=== PATIENT | female | born 1955 | race Caucasian/White ===

== ENCOUNTER 2021-01-16 10:46 | Inpatient (IN) | payer MEDICARE, MEDICAID, SELFPAY ==
[2021-01-16] VITALS (7 sets, daily range): BP systolic 132–173; BP diastolic 44–72; PULSE 70–83; RESP 16–20; TEMP 36.4–36.7; O2SAT 94–100; BMI 50.1
--- NOTE | ~2021-01-16 | XR_ITS ---
EXAMINATION: CHEST 1 VIEW CLINICAL INFORMATION: Hypoglycemia. COMPARISON: April 16, 2020. TECHNIQUE: An AP view of the chest is provided. FINDINGS: The cardiac silhouette is not enlarged. The mediastinal and hilar contours are unremarkable. There are neither pleural effusions nor pneumothoraces. There are no consolidations. The osseous structures are stable. XR/XR chest 1V IMPRESSION: No evidence for acute disease.
--- NOTE | ~2021-01-16 | CT_ITS ---
EXAMINATION: CT ABDOMEN AND PELVIS WITH CONTRAST CLINICAL INFORMATION: Right lower quadrant pain. Vaginal bleeding. COMPARISON: Pelvic ultrasound 11/03/2019, CT abdomen and pelvis with contrast 11/03/2019. TECHNIQUE: Multidetector volumetric images were obtained from the superior aspect of the liver through the pubic symphysis following administration 85 mL of Omnipaque 350 intravenous contrast. Sagittal and coronal reformatted images were obtained on the technologist's workstation. Oral contrast: No This CT examination was performed using dose optimization techniques as appropriate, variously including the following: *Automated exposure control *Adjustment of mA and/or kV according to patient size (this includes techniques or standardized protocols for targeted exams where dose is matched to indication/reason for exam; i.e. extremities or head) *Use of iterative reconstruction technique DLP: 1476 mGy-cm FINDINGS: LUNG BASES: There is subsegmental atelectasis left posterior lateral base. No effusion. LIVER, GALLBLADDER, AND BILIARY TREE: The liver is normal in size and smooth in contour. There is diffuse hepatic steatosis. Current study shows geographic decreased attenuation in segment 2 left lobe 2 x 3 cm not seen with certainty on prior study. There is no peripheral enhancement or contour abnormality to confirm a space-occupying lesion. This could represent focal fatty changes. No intrahepatic biliary ductal dilatation. There are gallbladder folds again seen but no wall thickening or calculi or gallbladder wall thickening. No pericholecystic inflammatory changes. Common duct unremarkable. PANCREAS: Atrophic, otherwise unremarkable. SPLEEN: Unremarkable. ADRENAL GLANDS: Unremarkable. KIDNEYS AND URETERS: Kidneys are normal in size and enhance symmetrically. There is no hydronephrosis, hydroureter, or perinephric stranding. Again, there are likely 2 punctate calculi upper pole right kidney under 3 mm probable punctate bilateral cysts under 5 mm BLADDER: Unremarkable. GASTROINTESTINAL TRACT: The stomach is dilated, both gas and fluid-filled similar to the prior CT 11/03/2019. There is no wall thickening or volvulus demonstrated. The small and large bowel are unremarkable. There are no inflammatory changes in the small or large bowel. The appendix is normal. There are diverticular left colon and sigmoid without diverticulitis. There is no ascites or fluid collection. No pneumatosis or free air. ABDOMINAL WALL: No significant hernia is appreciated. LYMPH NODES: No lymphadenopathy. VASCULAR: Unremarkable. PELVIC VISCERA: The uterus is enlarged measuring 16.8 x 6.6 x 8.2 cm. Prior measurements are 11.1 x 5.2 x 7.1 cm. There is fluid in the endometrial cavity and large amount of fluid distending the vaginal vault, 5.8 cm in diameter, consistent with the history of vaginal bleeding. Prior CT and ultrasound imaging noted abnormally thickened endometrium. The uterine surface is smooth. There is no interval adnexal mass. Stable left ovarian calcifications are seen. No pelvic ascites. OSSEOUS STRUCTURES: No acute bony abnormality. CT/CT abdomen pelvis w con IMPRESSION: 1. Enlarged uterus with thickened endometrium and intracavitary fluid with prominent fluid distention vaginal vault consistent with history bleeding. No adnexal mass or ascites. 2. Chronic gastric dilatation similar to prior CT 2020. Small and large bowel are unremarkable. Normal appendix. 3. Nonspecific geographic low-attenuation lesion left hepatic lobe 3 cm, possibly accentuated fatty changes superimposed on hepatic steatosis. No gallstone or biliary ductal dilatation.
--- NOTE | 2021-01-16 11:04 | ECG_ITS ---
Test Reason : WEAKNESS Blood Pressure : / mmHG Vent. Rate : 076 BPM Atrial Rate : 076 BPM P-R Int : 166 ms QRS Dur : 092 ms QT Int : 404 ms P-R-T Axes : 074 002 059 degrees QTc Int : 454 ms Normal sinus rhythm Nonspecific T wave abnormality Abnormal ECG When compared with ECG of 16-APR-2020 20:13, No significant change was found Referred By: Donita Walton Electronically Signed By:Blanco Diaz
--- NOTE | 2021-01-16 11:55 | ED.FEMALEGU ---
HPI - Female Genitourinary General Chief complaint: Urogenital-Female Stated complaint: VAGINAL BLEEDING X'S 1 WEEK,LOW ABD PAIN PER SNF Time Seen by Provider: 01/16/21 10:51 Source: patient and EMS Mode of arrival: EMS History of Present Illness HPI Narrative: 65-year-old female with a past medical history of anxiety, CAD, COVID-19, depression, diabetes, hyperlipidemia, hypertension, PVD, OA, previous abnormal endometrium vs mass seen on CT 10/2019 BIBA from SNF for worsening acute on chronic vaginal bleeding x today. Per SNF findings from CT in October 2019 were never followed up on. Patient also reports nausea and abdominal pain, and chronic SOB. Denies fever, chills, vomiting, diarrhea, lightheadedness/dizziness, CP. Does not take anticoagulation Patient is poor historian elicited complaint: vaginal bleeding Related Data Allergies Allergy/AdvReac Type Severity Reaction Status Date / Time No Known Allergies Allergy Unverified 06/13/20 16:57 [No Known Allergies*] Review of Systems Review of Systems: Constitutional: No Fever, No Chills Cardiovascular: No Chest Pain, Chronic SOB Respiratory: No Cough, No Dyspnea Gastrointestinal: + Nausea, No Vomiting, No Diarrhea, No Constipation, + Abdominal pain, No Hematochezia, No Melena Genitourinary: + irregular bleeding, No Dysuria, No Hematuria, No Flank Pain Musculoskeletal: No joint pain, No Myalgias, No Joint Swelling Skin: No Skin Lesions, No rash Neuro: No Weakness, No Numbness, No Loss of Consciousness, No Dizziness, No Headache Yes all other systems are reviewed and are negative [facility] Past Medical History Attestation statement: The following information was validated with the patient. Medical History (Updated 01/16/21 @ 17:13 by NATASHA Benson) Anxiety CAD (coronary artery disease) Chronic respiratory disease COVID-19 Depression Diabetes HLD (hyperlipidemia) HTN (hypertension) Low back pain Osteoarthritis Personality disorder Venous (peripheral) insufficiency Social History Social History Alcohol intake: never Smoking Status: Never smoker Use of substances other than those prescribed or required for medical reasons: No Advance Directives: Yes Advance Directives on File: Yes Advance Directives Date on File: 01/16/21 Physical Exam Vital Signs: Vital Signs: Last Vital Signs Temp 97.7 F 01/16/21 16:13 Pulse 73 01/16/21 16:13 Resp 20 01/16/21 16:13 BP 173/44 H 01/16/21 16:13 Pulse Ox 94 01/16/21 16:13 Body Mass Index 50.1 Const: General: cooperative, healthy appearing and no acute distress Nutritional Appearance: obese Orientation/consciousness: patient oriented x3 Limitations: no limitations HENMT: Head: Yes normal to inspection Ears: hearing grossly normal bilaterally General nose exam: Normal external nose present Face and sinus: Yes normal facial exam Eyes: General: appearance normal, both eyes and all related structures EOM: EOMs intact bilaterally Neck: Neck: Yes normal visual inspection Resp: Effort & Inspection: normal respiratory effort Auscultation: clear to auscultation bilaterally, no rales, no rhonchi and no wheezes Cardio: Rate: regular rate Heart sounds: S1 normal heart sound present and S2 normal heart sound present GI: Inspection: Yes normal to inspection Palpation (GI): Soft to palpation, Tenderness to palpation present (GI) in the RLQ and periumbilically, no guarding and not rigid : Other: Copious brown/green malodorous discharge/bleeding noted on pelvic exam with palpable superior mass. No adnexal or CMT tenderness Skin: Rashes: no rashes Wounds: no wounds Neuro: General: patient oriented x3 Extrem: General: Yes edema Course Course Course Narrative: -leukocytosis of 18.5 (WBC chronically elevated), lactic acid 1.1 > low concern for severe sepsis. Infection not suspected at this time -H&H stable -glucose noted to be low at 48 > D50 given. AST/ALT chronically elevated CT abdomen pelvis w con IMPRESSION: 1. Enlarged uterus with thickened endometrium and intracavitary fluid with prominent fluid distention vaginal vault consistent with history bleeding. No adnexal mass or ascites. 2. Chronic gastric dilatation similar to prior CT 2020. Small and large bowel are unremarkable. Normal appendix. 3. Nonspecific geographic low-attenuation lesion left hepatic lobe 3 cm, possibly accentuated fatty changes superimposed on hepatic steatosis. No gallstone or biliary ductal dilatation. >> results discussed with OBGYN doctor Estella, will obtain BV, yeast, CT/NG, and wound culture. She did not recommend antibiotic initiation at this time. Will contact patient for office follow-up for likely endometrial biopsy, and then referral to subspecialists as needed. -[id number]--ED care transferred to NATASHA Cueva pending UA, CXR, repeat point of care, and anticipated DC home to follow-up with OBGYN MDM - Female Genitourinary MDM Narrative Medical decision making narrative: 65-year-old female with a past medical history of anxiety, CAD, COVID-19, depression, diabetes, hyperlipidemia, hypertension, PVD, OA, previous abnormal endometrium vs mass seen on CT 10/2019 BIBA from SNF for worsening acute on chronic vaginal bleeding x today. Patient also reports nausea and abdominal pain, and chronic SOB. On exam VSS, NAD/nontoxic, abdomen soft +RLQ/periumbilical ttp, no rebound or guarding, on pelvic exam copious amounts of malodorous vaginal discharge noted with probable superior mass. Exam not consistent with PID. Concern for uterine or endometrial mass/malignancy vs anemia vs intra-abdominal pathology. Lower concern for infectious etiology. Unlikely ACS Plan: Labs, UA, CT AP, consult [facility], Reassess Medical Records Attestation: I reviewed the patient's medical records. Lab Data Attestation: I reviewed the patient's lab results. Result diagrams: 01/16/21 13:58 01/16/21 13:58 Labs: Lab Results 01/16/21 01/16/21 01/16/21 Range/Units 13:58 13:58 13:58 WBC 18.5 H (4.8-10.8) X10*3/uL RBC 5.58 H (4.20-5.50) X10*6/uL Hgb 16.0 (12.0-16.0) g/dl Hct 48.9 H (37-47) % MCV 87.6 (80-98) fL MCH 28.7 (27.0-33.0) pg MCHC 32.7 (31.0-35.0) g/dl RDW 12.7 (11.0-16.0) % Plt Count 351 (160-400) X10*3/uL MPV 10.0 (9.4-12.3) fL Immature Gran % (Auto) 3.3 H (0.0-0.4) % Neut % (Auto) 61.8 (45-73) % Lymph % (Auto) 23.8 (20-40) % Posey % (Auto) 9.8 (2-11) % Eos % (Auto) 0.5 (0-4) % Baso % (Auto) 0.8 (0-2) % Lymph # (Auto) 4.4 (1.2-4.9) X10*3/uL Posey # (Auto) 1.8 H (0.1-1.2) X10*3/uL Eos # (Auto) 0.1 (0.0-0.4) X10*3/uL Baso # (Auto) 0.2 (0.0-0.2) X10*3/uL Abs Immat Gran (auto) 0.62 H (0.00-0.03) X10*3/uL Absolute Neuts (auto) 11.4 H (2.0-8.3) X10*3/uL Absolute Nucleated RBC 0.000 (0.0-0.012) X10*3/uL Nucleated RBC % (auto) 0.0 (0.0-0.2) /100WBC Smear Tech's Comments VERIFIED PT 13.9 H (10.8-13.0) SEC INR 1.2 H (0.9-1.1) APTT 31.1 (24.1-38.0) SEC Sodium 141 (135-145) mmol/L Potassium 3.9 (3.3-5.1) mmol/L Chloride 96 (96-108) mmol/L Carbon Dioxide 36 H (22-29) mmol/L Anion Gap 13 (12-20) BUN 15 (9-16) mg/dL Creatinine 0.69 (0.5-1.4) mg/dL Estim Creat Clear Calc 124.3 Estimated GFR > 60 POC Glucose (60-115) mg/dL Random Glucose 48 L* (60-115) mg/dL Lactic Acid (0.5-2.0) mmol/L Calcium 10.8 H (8.4-10.2) mg/dL Magnesium 2.4 (1.6-2.6) mg/dL Total Bilirubin 0.7 (0.0-1.0) mg/dL Direct Bilirubin 0.3 (0.0-0.5) mg/dL AST 42 H (5-31) U/L ALT 75 H (0-31) U/L Alkaline Phosphatase 157 H (39-117) U/L Total Protein 6.6 (6.5-8.0) g/dL Albumin 3.4 L (3.5-5.0) g/dL Lipase (8-78) U/L COVID-19 (KJ) (Negative) COVID-19 Clin Com 01/16/21 01/16/21 01/16/21 Range/Units 13:58 13:58 14:58 WBC (4.8-10.8) X10*3/uL RBC (4.20-5.50) X10*6/uL Hgb (12.0-16.0) g/dl Hct (37-47) % MCV (80-98) fL MCH (27.0-33.0) pg MCHC (31.0-35.0) g/dl RDW (11.0-16.0) % Plt Count (160-400) X10*3/uL MPV (9.4-12.3) fL Immature Gran % (Auto) (0.0-0.4) % Neut % (Auto) (45-73) % Lymph % (Auto) (20-40) % Posey % (Auto) (2-11) % Eos % (Auto) (0-4) % Baso % (Auto) (0-2) % Lymph # (Auto) (1.2-4.9) X10*3/uL Posey # (Auto) (0.1-1.2) X10*3/uL Eos # (Auto) (0.0-0.4) X10*3/uL Baso # (Auto) (0.0-0.2) X10*3/uL Abs Immat Gran (auto) (0.00-0.03) X10*3/uL Absolute Neuts (auto) (2.0-8.3) X10*3/uL Absolute Nucleated RBC (0.0-0.012) X10*3/uL Nucleated RBC % (auto) (0.0-0.2) /100WBC Smear Tech's Comments PT (10.8-13.0) SEC INR (0.9-1.1) APTT (24.1-38.0) SEC Sodium (135-145) mmol/L Potassium (3.3-5.1) mmol/L Chloride (96-108) mmol/L Carbon Dioxide (22-29) mmol/L Anion Gap (12-20) BUN (9-16) mg/dL Creatinine (0.5-1.4) mg/dL Estim Creat Clear Calc Estimated GFR POC Glucose (60-115) mg/dL Random Glucose (60-115) mg/dL Lactic Acid 1.1 (0.5-2.0) mmol/L Calcium (8.4-10.2) mg/dL Magnesium (1.6-2.6) mg/dL Total Bilirubin (0.0-1.0) mg/dL Direct Bilirubin (0.0-0.5) mg/dL AST (5-31) U/L ALT (0-31) U/L Alkaline Phosphatase (39-117) U/L Total Protein (6.5-8.0) g/dL Albumin (3.5-5.0) g/dL Lipase 13 (8-78) U/L COVID-19 (KJ) Negative (Negative) COVID-19 Clin Com See Note 01/16/21 01/16/21 Range/Units 15:45 16:33 WBC (4.8-10.8) X10*3/uL RBC (4.20-5.50) X10*6/uL Hgb (12.0-16.0) g/dl Hct (37-47) % MCV (80-98) fL MCH (27.0-33.0) pg MCHC (31.0-35.0) g/dl RDW (11.0-16.0) % Plt Count (160-400) X10*3/uL MPV (9.4-12.3) fL Immature Gran % (Auto) (0.0-0.4) % Neut % (Auto) (45-73) % Lymph % (Auto) (20-40) % Posey % (Auto) (2-11) % Eos % (Auto) (0-4) % Baso % (Auto) (0-2) % Lymph # (Auto) (1.2-4.9) X10*3/uL Posey # (Auto) (0.1-1.2) X10*3/uL Eos # (Auto) (0.0-0.4) X10*3/uL Baso # (Auto) (0.0-0.2) X10*3/uL Abs Immat Gran (auto) (0.00-0.03) X10*3/uL Absolute Neuts (auto) (2.0-8.3) X10*3/uL Absolute Nucleated RBC (0.0-0.012) X10*3/uL Nucleated RBC % (auto) (0.0-0.2) /100WBC Smear Tech's Comments PT (10.8-13.0) SEC INR (0.9-1.1) APTT (24.1-38.0) SEC Sodium (135-145) mmol/L Potassium (3.3-5.1) mmol/L Chloride (96-108) mmol/L Carbon Dioxide (22-29) mmol/L Anion Gap (12-20) BUN (9-16) mg/dL Creatinine (0.5-1.4) mg/dL Estim Creat Clear Calc Estimated GFR POC Glucose 54 L* 108 (60-115) mg/dL Random Glucose (60-115) mg/dL Lactic Acid (0.5-2.0) mmol/L Calcium (8.4-10.2) mg/dL Magnesium (1.6-2.6) mg/dL Total Bilirubin (0.0-1.0) mg/dL Direct Bilirubin (0.0-0.5) mg/dL AST (5-31) U/L ALT (0-31) U/L Alkaline Phosphatase (39-117) U/L Total Protein (6.5-8.0) g/dL Albumin (3.5-5.0) g/dL Lipase (8-78) U/L COVID-19 (KJ) (Negative) COVID-19 Clin Com ECG Data Attestation: I personally reviewed and interpreted this ECG as follows: ECG interpretation date: 01/16/21 ECG interpretation time: 11:46 Interpretation: EKG normal sinus rhythm. Rate of 76. No STEMI/nonischemic. QTC 454 Discharge Plan Discharge Clinical Impression: Foul smelling vaginal discharge, Thickened endometrium, Hypoglycemia Instructions: Endometrial Biopsy (DC), Vaginal Discharge (ED) Additional Instructions: You need to follow-up with OBGYN outpatient, you need a biopsy of her endometrium as her CT scan shows a thickened endometrium with a lot of fluid in her vaginal vault Vaginal cultures were sent, the results should be back in a couple days, you will be contacted with positive results You develop fever, persistent a worsening abdominal pain, nausea/vomiting return to the ED immediately Referrals: Sussy Soria MD [Physician] - 2 days
--- NOTE | 2021-01-16 13:21 | PC.NURSE ---
patient awake/alert, pt transferred over to new bed to perform internal exam with assistance of techs, provider and 4 techs assisted with internal exam/pt tolerated exam with coaching of staff to deep breathe to relax, pt then cleaned up and boosted in bed, vitals remain stable, patient currently sleeping, is being held NPO at this time, will continue to monitor.
--- NOTE | 2021-01-16 14:07 | PC.NURSE ---
patient moved back to regular ed stretcher with assist of 2 techs, vitals stable, patient very diaphoretic- repeat ekg being performed, iv inserted, labs drawn, will continue to monitor.
[2021-01-16 14:12] LABS: Basophils Absolute Auto 0.2 X10*3/uL (0.0-0.2); Basophils Percent Auto 0.8 % (0-2); Eosinophils Absolute Auto 0.1 X10*3/uL (0.0-0.4); Eosinophils Percent Auto 0.5 % (0-4); Hematocrit 48.9 % (37-47); INTERNATIONAL NORM RATIO 1.2 (0.9-1.1); Imm Gran Abs Auto 0.62 X10*3/uL (0.00-0.03); Imm Gran Pct Auto 3.3 % (0.0-0.4); Lymphocytes Absolute Auto 4.4 X10*3/uL (1.2-4.9); Lymphocytes Percent Auto 23.8 % (20-40); MANUAL DIFF FLAG SCAN; Mean Corpuscular HGB Conc 32.7 g/dl (31.0-35.0); Mean Corpuscular Hemoglobin 28.7 pg (27.0-33.0); Mean Corpuscular Volume 87.6 fL (80-98); Monocytes Absolute Auto 1.8 X10*3/uL (0.1-1.2); Monocytes Percent Auto 9.8 % (2-11); Neutrophils Absolute Auto 11.4 X10*3/uL (2.0-8.3); Neutrophils Percent Auto 61.8 % (45-73); Platelet Count 351 X10*3/uL (160-400); Prothrombin Time 13.9 SEC (10.8-13.0); Red Blood Count 5.58 X10*6/uL (4.20-5.50); Red Cell Distribution Width 12.7 % (11.0-16.0); SCAN SMEAR FLAG 1; White Blood Count 18.5 X10*3/uL (4.8-10.8)
[2021-01-16 14:15] LABS: Partial Thromboplastin Time 31.1 SEC (24.1-38.0)
[2021-01-16] MEDS: LORazepam 2 MG/ML VIAL 0.5 MG IVPUSH (14:21)
--- NOTE | 2021-01-16 14:21 | PC.NURSE ---
patient medicated per order, youth nutritional monitor applied nsr 70s
[2021-01-16 14:28] LABS: Lactic Acid 1.1 mmol/L (0.5-2.0)
[2021-01-16 14:33] LABS: Lipase 13 U/L (8-78)
[2021-01-16 14:38] LABS: SLIDE REVIEW VERIFIED
[2021-01-16 14:40] LABS: Alanine Aminotransferase 75 U/L (0-31); Albumin Level 3.4 g/dL (3.5-5.0); Alkaline Phosphatase 157 U/L (39-117); Anion Gap 13 (12-20); Aspartate Amino Transferase 42 U/L (5-31); Bilirubin Direct 0.3 mg/dL (0.0-0.5); Bilirubin Total 0.7 mg/dL (0.0-1.0); Blood Urea Nitrogen 15 mg/dL (9-16); Calcium 10.8 mg/dL (8.4-10.2); Carbon Dioxide 36 mmol/L (22-29); Chloride 96 mmol/L (96-108); Creatinine Clr Calc Pharmacy 124.3; Estimated Glomerular Filt Rate > 60; Glucose Random 48 mg/dL (60-115); Magnesium 2.4 mg/dL (1.6-2.6); Potassium 3.9 mmol/L (3.3-5.1); Sodium 141 mmol/L (135-145); Total Protein 6.6 g/dL (6.5-8.0)
--- NOTE | 2021-01-16 14:49 | ECG_ITS ---
Test Reason : REPEAT Blood Pressure : / mmHG Vent. Rate : 077 BPM Atrial Rate : 077 BPM P-R Int : 168 ms QRS Dur : 098 ms QT Int : 430 ms P-R-T Axes : 070 -16 051 degrees QTc Int : 486 ms Normal sinus rhythm Nonspecific T wave abnormality Prolonged QT Abnormal ECG When compared with ECG of 16-JAN-2021 11:46, No significant change was found Referred By: Donita Walton Electronically Signed By:Blanco Diaz
--- NOTE | 2021-01-16 15:04 | PC.NURSE ---
pt awake to voice, medicated with iv dextrose per order, blood cultures and covid swab obtained, will continue to monitor.
[2021-01-16 15:24] LABS: COVID-19 Test Negative (Negative); IDNOW Serial# 9DD0AD1C
[2021-01-16] MEDS: iohexoL 350 MG/ML 100 ML INFUS..BTL IV (15:48)
[2021-01-16 15:49] LABS: Glucose, Whole Blood 54 mg/dL (60-115)
--- NOTE | 2021-01-16 16:13 | PC.NURSE ---
patient medicated with iv dextrose per order, vss, will continue to monitor.
[2021-01-16] MEDS: Dextrose 5 % and 0.45 % NaCl 1,000 ML 100 ML IVCONT (16:34)
--- NOTE | 2021-01-16 16:35 | PC.NURSE ---
repeat poc performed, ivf started per order, will continue to monitor
[2021-01-16 16:36] LABS: Glucose, Whole Blood 108 mg/dL (60-115)
--- NOTE | 2021-01-16 17:24 | PC.NURSE ---
fluids stopped per provider request, will redo poc at 1830
[2021-01-16 18:31] LABS: Glucose, Whole Blood 80 mg/dL (60-115)
--- NOTE | 2021-01-16 19:39 | PC.NURSE ---
attempting to call [facility] to obtain medications as they were not sent with the patient
--- NOTE | 2021-01-16 19:47 | PC.NURSE ---
patient sleeping, wakes to verbal stimulus, cardiac technician nsr 70s, vss, still attempting to get ahold of shirin- there has been no answer, will continue to monitor.
--- NOTE | 2021-01-16 20:14 | PC.NURSE ---
was able to get ahold of a RN named Stella at [facility], she stated the patient got 5u novolog this morning and also gets 100u of levimer at night, she stated the patients PO intake has greatly decreased. this nurse gave a full report to stella including what happened with the patients blood sugar today and to discuss with her provider to have her insulin adjusted. ED provider was notified of the medications, patient was given food per provider request and will have her blood sugar rechecked so patient can return back to [facility] later this evening. will continue to monitor.
[2021-01-16 20:53] LABS: Glucose, Whole Blood 72 mg/dL (60-115)
[2021-01-16 21:32] LABS: Glucose, Whole Blood 69 mg/dL (60-115)
--- NOTE | 2021-01-16 21:32 | PC.NURSE ---
patient awake/alert, vitals stable, radiation monitor sinus keith 60s, recent repeated poc was 69, provider notified d5 1/2 ns at 100 was restarted per provider request, will continue to monitor.
[2021-01-16] MEDS: Dextrose 10 % 1,000 ML 75 ML IVCONT (22:28)
--- NOTE | 2021-01-16 22:29 | PC.NURSE ---
new ivf hung per order
[2021-01-16 22:50] LABS: Glucose, Whole Blood 85 mg/dL (60-115)
[2021-01-16 23:36] LABS: Glucose, Whole Blood 120 mg/dL (60-115)
[2021-01-17] VITALS (7 sets, daily range): BP systolic 104–151; BP diastolic 49–65; PULSE 77–89; RESP 18–20; TEMP 35.7–36.8; O2SAT 93–99
[2021-01-17 01:46] LABS: Hematocrit 47.8 % (37-47)
[2021-01-17 02:43] LABS: Glucose, Whole Blood 180 mg/dL (60-115)
[2021-01-17] MEDS: Tranexamic Acid 1,000 MG in 0.9 % Sodium Chloride 50 ML 360 MG IV (03:15)
[2021-01-17 04:22] LABS: Glucose, Whole Blood 244 mg/dL (60-115)
[2021-01-17 04:56] LABS: MANUAL DIFF FLAG NO
[2021-01-17 04:58] LABS: Basophils Absolute Auto 0.1 X10*3/uL (0.0-0.2); Basophils Percent Auto 0.6 % (0-2); Eosinophils Absolute Auto 0.1 X10*3/uL (0.0-0.4); Eosinophils Percent Auto 0.4 % (0-4); Hematocrit 43.6 % (37-47); Hemoglobin 13.7 g/dl (12.0-16.0); Imm Gran Abs Auto 0.53 X10*3/uL (0.00-0.03); Imm Gran Pct Auto 3.7 % (0.0-0.4); Lymphocytes Absolute Auto 2.6 X10*3/uL (1.2-4.9); Mean Corpuscular HGB Conc 31.4 g/dl (31.0-35.0); Mean Corpuscular Hemoglobin 28.2 pg (27.0-33.0); Mean Corpuscular Volume 89.9 fL (80-98); Mean Platelet Volume 10.1 fL (9.4-12.3); Monocytes Absolute Auto 1.5 X10*3/uL (0.1-1.2); Monocytes Percent Auto 10.5 % (2-11); Neutrophils Absolute Auto 9.5 X10*3/uL (2.0-8.3); Neutrophils Percent Auto 66.8 % (45-73); Platelet Count 260 X10*3/uL (160-400); Red Blood Count 4.85 X10*6/uL (4.20-5.50); Red Cell Distribution Width 12.6 % (11.0-16.0); White Blood Count 14.2 X10*3/uL (4.8-10.8)
--- NOTE | 2021-01-17 05:06 | P.HPHOSP_ITS ---
History of Present Illness Date of Service: 01/16/21 Chief Complaint: vaginal bleed, hypoglyceimic 66-year-old female with past medical history of CAD, depression, diabetes, HTN, HLD, among others who presents to the hospital from [facility] with complaints of vaginal bleeding. Patient reports that she has had vaginal bleeding for a while now, and had worsened this morning and therefore [facility] sent her to the hospital. She does have an appointment outpatient for evaluation of this vaginal bleeding with an Ob Gyne in the next few days. She also reports poor oral intake for the past 2 days, just feels nauseous and does not have any appetite. She denies any abdominal pain, no chest pain, no shortness of breath, no diarrhea, no constipation, no urinary symptoms and no lower extremity edema. No headache or change in vision. While in the ED workup showed a POC glucose of 54, apparently patient received 100 units of long-acting in a.m. but had no appetite of eating. Patient remained hypoglycemic despite being on D5 as well as receiving 2 rounds of D50. Patient is being admitted for hypoglycemia Stable with no significant abnormal vitals. Blood pressure of 138/49 Labs are significant for see on of 18.5, hemoglobin of 16, hematocrit 40.9, PT of 13.9, INR of 1.2, glucose of 48, AST of 42, ALT of 75, alk-phos of 157, albumin of 3.4, COVID-19 negative, Shows enlarged uterus with thickened endometrium and drip cavity fluid with prominent fluid distension. Vaginal vault consistent with history of bleeding. No adnexal mass or ascites. Chronic gastric dilatation Review of Systems Review of Systems: Yes all other systems are reviewed and are negative [facility] Medical History Anxiety CAD (coronary artery disease) Chronic respiratory disease COVID-19 Depression Diabetes HLD (hyperlipidemia) HTN (hypertension) Low back pain Osteoarthritis Personality disorder Venous (peripheral) insufficiency Social History Housing: Half-Way Do you presently have visiting nurse or other home services: Yes Alcohol intake: never Smoking Status: Never smoker Use of substances other than those prescribed or required for medical reasons: No Have you been hit, kicked, punched, or otherwise hurt by someone within the past year? If so, by whom?: No Do you feel safe in your current relationship?: No Is there a partner from a previous relationship who is making you feel unsafe now?: No Are you made to feel afraid or neglected: No Advance Directives: Yes Advance Directives on File: Yes Advance Directives Date on File: 01/16/21 Do you have thoughts of harming others: None Do you have a plan to hurt others: No Plan Recently lost weight without trying: No Meds Allergies Allergy/AdvReac Type Severity Reaction Status Date / Time No Known Allergies Allergy Unverified 06/13/20 16:57 [No Known Allergies*] Active Medications: Current Medications Generic Name Dose Route Start Last Admin Trade Name Freq PRN Reason Stop Dose Admin Acetaminophen 650 mg 01/17/21 00:55 Acetaminophen 325 Mg Tablet PO Q4H PRN Fever Or Pain Aspirin 81 mg 01/17/21 09:00 Aspirin Enteric Coated 81 Mg Tablet. PO DAILY [facility] Atorvastatin Calcium 20 mg 01/17/21 09:00 Atorvastatin Calcium 20 Mg Tablet PO DAILY [facility] Bisacodyl 10 mg 01/17/21 00:55 Bisacodyl 10 Mg Supp.Rect [place] DAILY PRN Constipation Divalproex Sodium 250 mg 01/17/21 09:00 Divalproex Sodium 250 Mg Tablet. PO BID [facility] Docusate Sodium 100 mg 01/17/21 00:55 Docusate Sodium 100 Mg Capsule PO DAILY PRN Constipation Duloxetine HCl 20 mg 01/17/21 09:00 Duloxetine Hcl 20 Mg Capsule. PO DAILY [facility] Duloxetine HCl 60 mg 01/17/21 09:00 Duloxetine Hcl 60 Mg Capsule. PO DAILY [facility] Furosemide 20 mg 01/17/21 09:00 Furosemide 20 Mg Tablet PO DAILY [facility] Protocol Heparin Sodium (Porcine) 5,000 unit 01/17/21 10:00 Heparin Sodium,Porcine 5,000 Unit/Ml Vial SUBCUT Q12H [facility] Dextrose 1,000 mls @ 75 mls/hr 01/16/21 22:00 01/16/21 22:28 D10 IVCONT 75 mls/hr .[id number] [facility] Administration Insulin Human Lispro 5 unit 01/17/21 07:30 Insulin Lispro 100 Unit/Ml 3 Ml Vial SUBCUT TIDAC [facility] Metoprolol Succinate 50 mg 01/17/21 09:00 Metoprolol Succinate Er 50 Mg Tab.Er.24h PO DAILY [facility] Protocol Ondansetron HCl 4 mg 01/17/21 00:55 Ondansetron Hcl 4 Mg/2 Ml Vial IVPUSH Q8H PRN Nausea and Vomiting Oxycodone HCl 5 mg 01/17/21 00:55 Oxycodone Hcl Immed Release 5 Mg Tablet PO Q4H PRN Pain Oxycodone HCl 10 mg 01/17/21 09:00 Oxycodone Hcl Immed Release 5 Mg Tablet PO BID [facility] Pharmacy Consult 1 each 01/16/21 21:39 Consult Rx Perform Med Rec MISCELLANE ONCE PRN Consult order Polyethylene Glycol 17 gm 01/17/21 09:00 Polyethylene Glycol 3350 17 Gm Powd.Pack PO DAILY [facility] Pregabalin 75 mg 01/17/21 09:00 Pregabalin 75 Mg Capsule PO BID [facility] Sodium Chloride 3 ml 01/17/21 00:55 01/17/21 03:10 0.9 % Sodium Chloride Flush 3 Ml Syringe IVFLUSH Not Given QSHIFT [facility] Trazodone HCl 37.5 mg 01/17/21 21:00 Trazodone Hcl 50 Mg Tablet PO BEDTIME [facility] Home Medications Medication Instructions Recorded Confirmed Last Taken Type acetaminophen 650 mg PO Q4H PRN 01/16/21 01/16/21 Unknown History aspirin 81 mg PO DAILY 01/16/21 01/16/21 Unknown History atorvastatin 1 tab PO DAILY 01/16/21 01/16/21 Unknown History bisacodyl 10 mg [place] DAILY PRN 01/16/21 01/16/21 Unknown History divalproex 1 tab PO BID 01/16/21 01/16/21 Unknown History duloxetine 1 cap PO DAILY 01/16/21 01/16/21 Unknown History duloxetine 1 cap PO DAILY 01/16/21 01/16/21 Unknown History furosemide 20 mg PO DAILY 01/16/21 01/16/21 Unknown History insulin aspart U-100 [Novolog 5 unit SUBCUT TIDAC 01/16/21 01/16/21 Unknown History U-100 Insulin aspart] insulin aspart U-100 [Novolog See Rx Instructions .ROUTE .COMPLEX 01/16/21 01/16/21 Unknown History U-100 Insulin aspart] insulin detemir U-100 [Levemir 100 unit SUBCUT BID 01/16/21 01/16/21 Unknown History U-100 Insulin] magnesium oxide 400 mg PO DAILY 01/16/21 01/16/21 Unknown History metoprolol succinate 1 tab PO DAILY 01/16/21 01/16/21 Unknown History oxycodone 1 tab PO BID 01/16/21 01/16/21 Unknown History oxycodone 5 mg PO Q4H PRN 01/16/21 01/16/21 Unknown History polyethylene glycol 3350 [Miralax] 17 g PO DAILY 01/16/21 01/16/21 Unknown History pregabalin 1 cap PO BID 01/16/21 01/16/21 Unknown History trazodone 37.5 mg PO DAILY 01/16/21 01/16/21 Unknown History Physical Exam Vital Signs and Narrative: Vital Signs: Last Vital Signs Temp 98.2 F 01/17/21 04:00 Pulse 82 01/17/21 04:00 Resp 18 01/17/21 04:00 BP 151/58 H 01/17/21 04:00 Pulse Ox 98 01/17/21 04:00 Body Mass Index 50.1 Const: General: cooperative and no acute distress Orientation/consciousness: patient oriented x3 Eyes: General: appearance normal, both eyes and all related structures Resp: Effort & Inspection: normal respiratory effort and able to speak in complete sentences Cardio: Rate: regular rate Rhythm: regular rhythm GI: Palpation (GI): Soft to palpation Auscultation: normal bowel sounds Skin: General skin exam: no rashes or lesions noted Neuro: General: patient oriented x3 Cognition (Neuro): normal cognition Extrem: General: Yes normal to inspection and Yes no pedal edema Results Labs CBC and Chem 7: 01/17/21 01:32 01/16/21 13:58 Labs: Laboratory Results - last 24 hr 01/16/21 01/16/21 01/16/21 13:58 13:58 13:58 MCV 87.6 MCH 28.7 MCHC 32.7 RDW 12.7 Plt Count 351 MPV 10.0 Immature Gran % (Auto) 3.3 H Neut % (Auto) 61.8 Lymph % (Auto) 23.8 [place] % (Auto) 9.8 Eos % (Auto) 0.5 Baso % (Auto) 0.8 Lymph # (Auto) 4.4 [place] # (Auto) 1.8 H Eos # (Auto) 0.1 Baso # (Auto) 0.2 Abs Immat Gran (auto) 0.62 H Absolute Neuts (auto) 11.4 H Absolute Nucleated RBC 0.000 Nucleated RBC % (auto) 0.0 Smear Tech's Comments VERIFIED PT 13.9 H INR 1.2 H APTT 31.1 Anion Gap 13 Estim Creat Clear Calc 124.3 Estimated GFR > 60 POC Glucose Random Glucose 48 L* Lactic Acid Calcium 10.8 H Magnesium 2.4 Total Bilirubin 0.7 Direct Bilirubin 0.3 AST 42 H ALT 75 H Alkaline Phosphatase 157 H Total Protein 6.6 Albumin 3.4 L Lipase COVID-19 (KJ) COVID-19 [employer] 01/16/21 01/16/21 01/16/21 13:58 13:58 14:58 MCV MCH MCHC RDW Plt Count MPV Immature Gran % (Auto) Neut % (Auto) Lymph % (Auto) [place] % (Auto) Eos % (Auto) Baso % (Auto) Lymph # (Auto) [place] # (Auto) Eos # (Auto) Baso # (Auto) Abs Immat Gran (auto) Absolute Neuts (auto) Absolute Nucleated RBC Nucleated RBC % (auto) Smear Tech's Comments PT INR APTT Anion Gap Estim Creat Clear Calc Estimated GFR POC Glucose Random Glucose Lactic Acid 1.1 Calcium Magnesium Total Bilirubin Direct Bilirubin AST ALT Alkaline Phosphatase Total Protein Albumin Lipase 13 COVID-19 (KJ) Negative COVID-[employer] See Note 01/16/21 01/16/21 01/16/21 15:45 16:33 18:27 MCV MCH MCHC RDW Plt Count MPV Immature Gran % (Auto) Neut % (Auto) Lymph % (Auto) [place] % (Auto) Eos % (Auto) Baso % (Auto) Lymph # (Auto) [place] # (Auto) Eos # (Auto) Baso # (Auto) Abs Immat Gran (auto) Absolute Neuts (auto) Absolute Nucleated RBC Nucleated RBC % (auto) Smear Tech's Comments PT INR APTT Anion Gap Estim Creat Clear Calc Estimated GFR POC Glucose 54 L* 108 80 Random Glucose Lactic Acid Calcium Magnesium Total Bilirubin Direct Bilirubin AST ALT Alkaline Phosphatase Total Protein Albumin Lipase COVID-19 (KJ) COVID-19 [employer] 01/16/21 01/16/21 01/16/21 20:48 21:26 22:46 MCV MCH MCHC RDW Plt Count MPV Immature Gran % (Auto) Neut % (Auto) Lymph % (Auto) [place] % (Auto) Eos % (Auto) Baso % (Auto) Lymph # (Auto) [place] # (Auto) Eos # (Auto) Baso # (Auto) Abs Immat Gran (auto) Absolute Neuts (auto) Absolute Nucleated RBC Nucleated RBC % (auto) Smear Tech's Comments PT INR APTT Anion Gap Estim Creat Clear Calc Estimated GFR POC Glucose 72 69 85 Random Glucose Lactic Acid Calcium Magnesium Total Bilirubin Direct Bilirubin AST ALT Alkaline Phosphatase Total Protein Albumin Lipase COVID-19 (KJ) COVID-19 Clin Com 01/16/21 01/17/21 01/17/21 23:31 02:37 04:14 MCV MCH MCHC RDW Plt Count MPV Immature Gran % (Auto) Neut % (Auto) Lymph % (Auto) [place] % (Auto) Eos % (Auto) Baso % (Auto) Lymph # (Auto) [place] # (Auto) Eos # (Auto) Baso # (Auto) Abs Immat Gran (auto) Absolute Neuts (auto) Absolute Nucleated RBC Nucleated RBC % (auto) Smear Tech's Comments PT INR APTT Anion Gap Estim Creat Clear Calc Estimated GFR POC Glucose 120 H 180 H 244 H Random Glucose Lactic Acid Calcium Magnesium Total Bilirubin Direct Bilirubin AST ALT Alkaline Phosphatase Total Protein Albumin Lipase COVID-19 (KJ) COVID-19 [employer] [facility] Imaging Radiologist's Impressions: Impressions Abdomen/Pelvis CT 01/16/21 11:04 IMPRESSION: 1. Enlarged uterus with thickened endometrium and intracavitary fluid with prominent fluid distention vaginal vault consistent with history bleeding. No adnexal mass or ascites. 2. Chronic gastric dilatation similar to prior CT 2020. Small and large bowel are unremarkable. Normal appendix. 3. Nonspecific geographic low-attenuation lesion left hepatic lobe 3 cm, possibly accentuated fatty changes superimposed on hepatic steatosis. No gallstone or biliary ductal dilatation. Chest X-Ray 01/16/21 17:13 IMPRESSION: No evidence for acute disease. Assessment and Plan (1) Hypoglycemia: Status: Acute (2) Vaginal bleeding: Status: Acute 66-year-old female with past medical history of diabetes who presents to the hospital vaginal bleeding found to be hypoglycemic # hypoglycemia - most likely secondary to significant intake of insulin without eating or drinking appropriately - patient was placed on D10 and admitted to the hospital with improvement of her glucose - will monitor with pock q.i.d. a.c. - diabetic diet - will hold off on her baseline insulin at this time until improvement of her glucose levels - may need insulin adjustment baseline her oral intake # vaginal bleeding - hemoglobin stable - had few more small episodes while in the ED - Received 1 dose of Tranexamic acid - will consult associate programmer analyst - CT abdomen and pelvis showed thickend endometrium # CAD - hold aspirin in the setting of vaginal bleeding - continue statin and metoprolol DVT prophylaxis: Heparin subQ
[2021-01-17 05:07] LABS: Glucose, Whole Blood 273 mg/dL (60-115)
[2021-01-17 05:31] LABS: Anion Gap 12 (12-20); Blood Urea Nitrogen 13 mg/dL (9-16); Calcium 9.7 mg/dL (8.4-10.2); Carbon Dioxide 34 mmol/L (22-29); Chloride 92 mmol/L (96-108); Creatinine Clr Calc Pharmacy 112.8; Estimated Glomerular Filt Rate > 60; Glucose Random 286 mg/dL (60-115); Potassium 4.4 mmol/L (3.3-5.1); Sodium 134 mmol/L (135-145)
[2021-01-17 06:28] LABS: Glucose, Whole Blood 261 mg/dL (60-115)
[2021-01-17 06:32] LABS: CT PCR NOT DETECTED (Not Detect.); NG PCR NOT DETECTED (Not Detect.)
[2021-01-17 07:23] LABS: Glucose, Whole Blood 236 mg/dL (60-115)
[2021-01-17 08:32] LABS: Glucose, Whole Blood 225 mg/dL (60-115)
[2021-01-17 08:51] LABS: BV Int Neg Control Negative (Negative); BV Int Pos Control Positive (Positive)
[2021-01-17] MEDS: 0.9 % Sodium Chloride Flush 3 ML SYRINGE IVFLUSH ×3 (10:15→22:55)
[2021-01-17] MEDS: oxyCODONE HCl Immed Release 5 MG TABLET 10 MG PO ×2 (10:16→21:00)
[2021-01-17] MEDS: polyethylene glycoL 3350 17 GM POWD.PACK PO (10:16)
[2021-01-17] MEDS: Divalproex Sodium 250 MG TABLET.DR PO ×2 (10:16→20:58)
[2021-01-17] MEDS: DULoxetine HCl 20 MG CAPSULE.DR PO (10:17)
[2021-01-17] MEDS: Metoprolol Succinate ER 50 MG TAB.ER.24H PO (10:17)
[2021-01-17] MEDS: Furosemide 20 MG TABLET PO (10:17)
[2021-01-17] MEDS: Pregabalin 75 MG CAPSULE PO ×2 (10:17→20:59)
[2021-01-17] MEDS: DULoxetine HCl 60 MG CAPSULE.DR PO (10:17)
[2021-01-17] MEDS: Atorvastatin Calcium 20 MG TABLET PO (10:17)
[2021-01-17 10:18] LABS: Glucose, Whole Blood 215 mg/dL (60-115)
--- NOTE | 2021-01-17 10:40 | PM.GYNCN ---
CARE TRANSITION MGR - CN: HPI Data of Consult Consult date: 01/17/21 Requesting Physician: Iain Bunch MD Primary Care Provider: Jacquelyn Presley MD Consult Narrative Narrative: I was consulted on Ms. Talya Emanuel who is a 66 year old female regarding postmenopausal bleeding. According the patient the bleeding started 3 days ago no previous history of postmenopausal bleeding. CT scan done in the emergency room from the following: The uterus is enlarged measuring 16.8 x 6.6 x 8.2 cm.Prior measurements are 11.1 x 5.2 x 7.1 cm. There is fluid in the endometrial cavity and large amount of fluid distending the vaginal vault, 5.8 cm in diameter, consistent with the history of vaginal bleeding. Prior CT and ultrasound imaging noted abnormally thickened endometrium. The uterine surface is smooth. There is no interval adnexal mass. Stable left ovarian calcifications are seen. No pelvic ascites. Last Pap smear was unknown. Patient is a poor historian cc:: CC: Iain Bunch MD [employer] DEVELOPER - Review of Systems Review of Systems ROS Unobtainable: All systems reviewed & are unremarkable except as noted in HPI and below Cardiovascular: Denies Palpatations, Loss of consciousness and Chest pain Respiratory: Denies Cough, Wheezing and Shortness of breath Musculoskeletal: Denies Low back pain Gastrointestinal: Denies Heartburn, Constipation, Diarrhea, Nausea and Vomiting Genitourinary: Denies Pain with urination, Burning with urination and Urinary frequency Neurological: Denies Migranes Psychological: Denies Depression OB PMFSH Past Medical History Medical History Anxiety CAD (coronary artery disease) Chronic respiratory disease COVID-19 Depression Diabetes HLD (hyperlipidemia) HTN (hypertension) Low back pain Osteoarthritis Personality disorder Venous (peripheral) insufficiency Social History Social History Housing: [facility] Do you presently have visiting nurse or other home services: Yes Alcohol intake: never Smoking Status: Never smoker Use of substances other than those prescribed or required for medical reasons: No Have you been hit, kicked, punched, or otherwise hurt by someone within the past year? If so, by whom?: No Do you feel safe in your current relationship?: No Is there a partner from a previous relationship who is making you feel unsafe now?: No Are you made to feel afraid or neglected: No Advance Directives: Yes Advance Directives on File: Yes Advance Directives Date on File: 01/16/21 Do you have thoughts of harming others: None Do you have a plan to hurt others: No Plan Recently lost weight without trying: No Meds Allergies Allergy/AdvReac Type Severity Reaction Status Date / Time No Known Allergies Allergy Unverified 06/13/20 16:57 [No Known Allergies*] Active Medications: Current Medications Generic Name Dose Route Start Last Admin Trade Name Freq PRN Reason Stop Dose Admin Acetaminophen 650 mg 01/17/21 00:55 Acetaminophen 325 Mg Tablet PO Q4H PRN Fever Or Pain Atorvastatin Calcium 20 mg 01/17/21 09:00 01/17/21 10:17 Atorvastatin Calcium 20 Mg Tablet PO 20 mg DAILY [facility] Administration Bisacodyl 10 mg 01/17/21 00:55 Bisacodyl 10 Mg Supp.Rect [place] DAILY PRN Constipation Divalproex Sodium 250 mg 01/17/21 09:00 01/17/21 10:16 Divalproex Sodium 250 Mg Tablet. PO 250 mg BID [facility]USAN Administration Docusate Sodium 100 mg 01/17/21 00:55 Docusate Sodium 100 Mg Capsule PO DAILY PRN Constipation Duloxetine HCl 20 mg 01/17/21 09:00 01/17/21 10:17 Duloxetine Hcl 20 Mg Capsule. PO 20 mg DAILY [facility] Administration Duloxetine HCl 60 mg 01/17/21 09:00 01/17/21 10:17 Duloxetine Hcl 60 Mg Capsule. PO 60 mg DAILY [facility] Administration Furosemide 20 mg 01/17/21 09:00 01/17/21 10:17 Furosemide 20 Mg Tablet PO 20 mg DAILY [facility] Administration Protocol Metoprolol Succinate 50 mg 01/17/21 09:00 01/17/21 10:17 Metoprolol Succinate Er 50 Mg Tab.Er.24h PO 50 mg DAILY [facility] Administration Protocol Ondansetron HCl 4 mg 01/17/21 00:55 Ondansetron Hcl 4 Mg/2 Ml Vial IVPUSH Q8H PRN Nausea and Vomiting Oxycodone HCl 5 mg 01/17/21 00:55 Oxycodone Hcl Immed Release 5 Mg Tablet PO Q4H PRN Pain Oxycodone HCl 10 mg 01/17/21 09:00 01/17/21 10:16 Oxycodone Hcl Immed Release 5 Mg Tablet PO 10 mg BID [facility] Administration Pharmacy Consult 1 each 01/16/21 21:39 Consult Rx Perform Med Rec MISCELLANE ONCE PRN Consult order Polyethylene Glycol 17 gm 01/17/21 09:00 01/17/21 10:16 Polyethylene Glycol 3350 17 Gm Powd.Pack PO 17 gm DAILY [facility] Administration Pregabalin 75 mg 01/17/21 09:00 01/17/21 10:17 Pregabalin 75 Mg Capsule PO 75 mg BID [facility] Administration Sodium Chloride 3 ml 01/17/21 00:55 01/17/21 10:15 0.9 % Sodium Chloride Flush 3 Ml Syringe IVFLUSH 3 ml QSHIFT [facility] Administration Trazodone HCl 37.5 mg 01/17/21 21:00 Trazodone Hcl 50 Mg Tablet PO BEDTIME [facility] Home Medications Medication Instructions Recorded Confirmed Last Taken Type acetaminophen 650 mg PO Q4H PRN 01/16/21 01/16/21 Unknown History aspirin 81 mg PO DAILY 01/16/21 01/16/21 Unknown History atorvastatin 1 tab PO DAILY 01/16/21 01/16/21 Unknown History bisacodyl 10 mg [place] DAILY PRN 01/16/21 01/16/21 Unknown History divalproex 1 tab PO BID 01/16/21 01/16/21 Unknown History duloxetine 1 cap PO DAILY 01/16/21 01/16/21 Unknown History duloxetine 1 cap PO DAILY 01/16/21 01/16/21 Unknown History furosemide 20 mg PO DAILY 01/16/21 01/16/21 Unknown History insulin aspart U-100 [Novolog 5 unit SUBCUT TIDAC 01/16/21 01/16/21 Unknown History U-100 Insulin aspart] insulin aspart U-100 [Novolog See Rx Instructions .ROUTE .COMPLEX 01/16/21 01/16/21 Unknown History U-100 Insulin aspart] insulin detemir U-100 [Levemir 100 unit SUBCUT BID 01/16/21 01/16/21 Unknown History U-100 Insulin] magnesium oxide 400 mg PO DAILY 01/16/21 01/16/21 Unknown History metoprolol succinate 1 tab PO DAILY 01/16/21 01/16/21 Unknown History oxycodone 1 tab PO BID 01/16/21 01/16/21 Unknown History oxycodone 5 mg PO Q4H PRN 01/16/21 01/16/21 Unknown History polyethylene glycol 3350 [Miralax] 17 g PO DAILY 01/16/21 01/16/21 Unknown History pregabalin 1 cap PO BID 01/16/21 01/16/21 Unknown History trazodone 37.5 mg PO DAILY 01/16/21 01/16/21 Unknown History CARE TRANSITION [facility] Physical Exam Vitals Vital signs: Temp Pulse Resp BP Pulse Ox 97 F 77 18 145/58 H 97 01/17/21 07:53 01/17/21 07:53 01/17/21 07:53 01/17/21 07:53 01/17/21 07:53 Body Mass Index 50.1 Constitutional General Appearance: Healthy appearing, Well-nourished and Well-developed Psychiatric Mood and Affect: active and alert, normal mood and normal affect Skin Appearance: No rashes and No lesions Lungs Respiratory Effort: No intercostal retractions Auscultation: Clear to auscultation Cardiovascular Auscultation: RRR Abdomen Auscultation/Inspection/Palpation: Normal bowel sounds, Soft, Non-distended and No tenderness Female Genitalia (Pelvic) Bladder/Urethra: Normal meatus Vulva: No lesions Lesion: Erythema Cervix: Lesion (Blood per vagina, 3 cm mass protruding from the cervix possible polyp, myoma or cancer) Adnexa/Parametria: Adnexal Mass: None (Suboptimal exam given to patient body habitus and inability to extend her hips) CARE TRANSITION MGR - Results Labs CBC & Chem 7: 01/17/21 04:26 01/17/21 04:26 Labs: Short CBC 01/16/21 01/17/21 01/17/21 Range/Units 13:58 01:32 04:26 WBC 18.5 H 14.2 H (4.8-10.8) X10*3/uL Hgb 16.0 15.0 13.7 (12.0-16.0) g/dl Hct 48.9 H 47.8 H 43.6 (37-47) % Plt Count 351 260 D (160-400) X10*3/uL BMP 01/16/21 01/17/21 13:58 04:26 Sodium 141 134 L Potassium 3.9 4.4 Chloride 96 92 L Carbon Dioxide 36 H 34 H BUN 15 13 Creatinine 0.69 0.75 Calcium 10.8 H 9.7 D Liver Function 01/16/21 Range/Units 13:58 Total Bilirubin 0.7 (0.0-1.0) mg/dL Direct Bilirubin 0.3 (0.0-0.5) mg/dL AST 42 H (5-31) U/L ALT 75 H (0-31) U/L Alkaline Phosphatase 157 H (39-117) U/L Albumin 3.4 L (3.5-5.0) g/dL Assessment and Plan (1) Cervical lesion: Status: Acute Discussed with the patient the finding on physical exam, a mass protruding from the cervix. Differential diagnosis discussed with the patient included cervical polyp, myoma or cancer. Recommended a biopsy of the mass in addition to endometrial biopsy and treat accordingly. Given the patient medical history , I recommend to transfer to [facility] for a higher level of care. (2) Postmenopausal bleeding: Status: Acute Discussed with the patient the differential diagnosis of postmenopausal bleeding including but not limited to, endometrial polyp, hyperplasia or cancer, in addition to cervical cancer. Given the patient's findings on physical exam and CT scan showing thickened endometrium, I recommend to transfer the patient to a tertiary care center , [facility] for endometrial biopsy and cervical mass biopsy, and manage accordingly. All questions answered the patient verbalized understanding. Discussed with Dr. Bunch the patient findings on physical exam and my recommendation.
[2021-01-17 11:23] LABS: Glucose, Whole Blood 225 mg/dL (60-115)
[2021-01-17 12:54] LABS: Hematocrit 43.6 % (37-47)
--- NOTE | 2021-01-17 13:00 | MHC.CM.PN ---
nurse pet care technician note electronic medical record reviewed along with case discussed with staff nurse and on multiple discil
--- NOTE | 2021-01-17 13:00 | MHC.CM.PN ---
nurse critical care paramedic note electronic medical record reviewed along with case discussed with staff nurse and on multiple disciplianry rounds , per hospitlaist patient is expected to be transferred to [facility], consult was made with the lime plant operator physician cervical lesion,(per documentation with exame he found a mass protruding from the cervix and recomended transfert to [facility]. patient reported she lives at [facility] she reported that the caretakers at the facility help her with her adls and sometimes she is able to sit in the chair or wheelchair , but is mostly in bed . she is aware that she will be transported at some point to [facility] for further treatments and procedures, discharge plan anticipate transfer today or tomorrow to [facility] medicare imm explained to patient and ledft at her bedside acute transfer community outreach advocate to set up action bls patient will require oxygen hcp and molst on file Assessment and Plan (1) Cervical lesion: Status: Acute Discussed with the patient the finding on physical exam, a mass protruding from the cervix. Differential diagnosis discussed with the patient included cervical polyp, myoma or cancer. Recommended a biopsy of the mass in addition to endometrial biopsy and treat accordingly. Given the patient medical history , I recommend to transfer to patient [facility] for a higher level of care. (2) Postmenopausal bleeding: Status: Acute Discussed with the patient the differential diagnosis of postmenopausal bleeding including but not limited to, endometrial polyp, hyperplasia or cancer, in addition to cervical cancer. Given the patient's findings on physical exam and CT scan showing thickened endometrium, I recommend to transfer the patient to a tertiary care center , [facility] for endometrial biopsy and cervical mass biopsy, and manage accordingly. All questions answered the patient verbalized understanding. Discussed with Dr. Bunch the patient findings on physical exam and my recommendation.
--- NOTE | 2021-01-17 13:19 | P.PNIM_ITS ---
Subjective Subjective Date of Service: 01/17/21 Interval History: seen and examined this AM reports feeling tired but otherwise okay ROS General - no fevers or chills Cardiovascular - no chest pain Respiratory - no shortness of breath or cough Abdominal- no abdominal pain, nausea, vomiting, diarrhea - vaginal bleeding Physical Exam Vital Signs: Vital Signs: Last Vital Signs Temp 97 F 01/17/21 11:30 Pulse 79 01/17/21 11:30 Resp 18 01/17/21 11:30 BP 104/49 L 01/17/21 11:30 Pulse Ox 99 01/17/21 11:30 Body Mass Index 50.1 Const: Other: General - no acute distress, appears comfortable Cardiovascular - regular rate and rhythm, S1-S2 Lungs - normal respiratory effort, clear to auscultation bilaterally, no wheezing Abdomen - soft, nontender, no rebound or guarding Extremities - no edema bilaterally Neuro - awake and alert, no focal deficits Objective Data Current Medications Generic Name Dose Route Start Last Admin Trade Name Freq PRN Reason Stop Dose Admin Acetaminophen 650 mg 01/17/21 00:55 Acetaminophen 325 Mg Tablet PO Q4H PRN Fever Or Pain Atorvastatin Calcium 20 mg 01/17/21 09:00 01/17/21 10:17 Atorvastatin Calcium 20 Mg Tablet PO 20 mg DAILY SUSAN Administration Bisacodyl 10 mg 01/17/21 00:55 Bisacodyl 10 Mg Supp.Rect MA DAILY PRN Constipation Divalproex Sodium 250 mg 01/17/21 09:00 01/17/21 10:16 Divalproex Sodium 250 Mg Tablet. PO 250 mg BID SUSAN Administration Docusate Sodium 100 mg 01/17/21 00:55 Docusate Sodium 100 Mg Capsule PO DAILY PRN Constipation Duloxetine HCl 20 mg 01/17/21 09:00 01/17/21 10:17 Duloxetine Hcl 20 Mg Capsule. PO 20 mg DAILY SUSAN Administration Duloxetine HCl 60 mg 01/17/21 09:00 01/17/21 10:17 Duloxetine Hcl 60 Mg Capsule. PO 60 mg DAILY SUSAN Administration Furosemide 20 mg 01/17/21 09:00 01/17/21 10:17 Furosemide 20 Mg Tablet PO 20 mg DAILY SUSAN Administration Protocol Metoprolol Succinate 50 mg 01/17/21 09:00 01/17/21 10:17 Metoprolol Succinate Er 50 Mg Tab.Er.24h PO 50 mg DAILY SUSAN Administration Protocol Ondansetron HCl 4 mg 01/17/21 00:55 Ondansetron Hcl 4 Mg/2 Ml Vial IVPUSH Q8H PRN Nausea and Vomiting Oxycodone HCl 5 mg 01/17/21 00:55 Oxycodone Hcl Immed Release 5 Mg Tablet PO Q4H PRN Pain Oxycodone HCl 10 mg 01/17/21 09:00 01/17/21 10:16 Oxycodone Hcl Immed Release 5 Mg Tablet PO 10 mg BID SUSAN Administration Pharmacy Consult 1 each 01/16/21 21:39 Consult Rx Perform Med Rec MISCELLANE ONCE PRN Consult order Polyethylene Glycol 17 gm 01/17/21 09:00 01/17/21 10:16 Polyethylene Glycol 3350 17 Gm Powd.Pack PO 17 gm DAILY SUSAN Administration Pregabalin 75 mg 01/17/21 09:00 01/17/21 10:17 Pregabalin 75 Mg Capsule PO 75 mg BID SUSAN Administration Sodium Chloride 3 ml 01/17/21 00:55 01/17/21 10:15 0.9 % Sodium Chloride Flush 3 Ml Syringe IVFLUSH 3 ml QSHIFT SUSAN Administration Trazodone HCl 37.5 mg 01/17/21 21:00 Trazodone Hcl 50 Mg Tablet PO BEDTIME [facility] Labs CBC & Chem 7: 01/17/21 12:37 01/17/21 04:26 Microbiology Microbiology Results: Microbiology 01/16/21 14:58 Blood - Venous Blood Culture - Preliminary 01/16/21 17:07 Vaginal Gram Stain - Final 01/16/21 17:07 Vaginal Routine Culture - Preliminary Culture in progress. 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 d/w Dr. Vega @ [facility] WO[employer] HAT SANDING MACHINE OPERATOR. Full details given including labs + imaging studies. At this time, she does not feel the patient needs inpatient to inpatient transfer. If her h/h drops then we could call her back. In the mean time -- she has been given a f/u at the [facility] on January 22 @ 840AM. repeat h/h this afternoon is stable # CAD - hold aspirin in the setting of vaginal bleeding - continue statin and metoprolol #GPB bacteremia 1/2 bottles suspect contaminant (no foci of infection at this time), pt remains afebrile. Will give vancomycin if she spikes a temp f/u final C&S dispo: if h/h stable and no futher hypoglycemia -- will d/c back to SNF likely tomorrow.
--- NOTE | 2021-01-17 13:45 | MHC.CM.PN ---
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 discharge plan return back to [facility] facility at [facility] where she rsides , updated the facillity and reported that she will be discharged tomorrow informed patient of this also transportation action bls with oxygen medicare imm 01/17/21
--- NOTE | 2021-01-17 15:33 | MHC.CLN ---
RE: CONSULT PT WITH POOR PO INTAKE LIBRARY CONSULTANT FROM SNF [facility] 91KG CMW, 2100KCALS, 91G PROTEIN DIET RX: 1800DM-PT WOULD BENEFIT FROM 2000DM DIET BASED ON ESTIMATED NUTRITION NEEDS RECOMMEND CHECKING A1C LEVEL WILL CHANGE DIET TO 2000DM -DIET WILL PROMOTE SLOW WT LOSS FOLLOWING
[2021-01-17 16:39] LABS: Glucose, Whole Blood 268 mg/dL (60-115)
[2021-01-17 20:29] LABS: Glucose, Whole Blood 261 mg/dL (60-115)
[2021-01-17] MEDS: traZODone HCL 50 MG TABLET 37.5 MG PO (20:59)
[2021-01-18 04:00] VITALS: BP 130/60; PULSE 98; RESP 18; TEMP 36.5; O2SAT 97
[2021-01-18 06:56] LABS: Hematocrit 39.6 % (37-47); Hemoglobin 12.6 g/dl (12.0-16.0); Mean Corpuscular HGB Conc 31.8 g/dl (31.0-35.0); Mean Corpuscular Hemoglobin 28.1 pg (27.0-33.0); Mean Corpuscular Volume 88.4 fL (80-98); Mean Platelet Volume 10.1 fL (9.4-12.3); Platelet Count 276 X10*3/uL (160-400); Red Blood Count 4.48 X10*6/uL (4.20-5.50); Red Cell Distribution Width 12.6 % (11.0-16.0); White Blood Count 17.3 X10*3/uL (4.8-10.8)
[2021-01-18 07:09] VITALS: BP 125/48; PULSE 98; RESP 17; TEMP 36.3; O2SAT 94
[2021-01-18 07:54] LABS: Glucose, Whole Blood 315 mg/dL (60-115)
[2021-01-18] MEDS: DULoxetine HCl 20 MG CAPSULE.DR PO (09:12)
[2021-01-18] MEDS: Pregabalin 75 MG CAPSULE PO (09:12)
[2021-01-18] MEDS: Divalproex Sodium 250 MG TABLET.DR PO (09:12)
[2021-01-18] MEDS: oxyCODONE HCl Immed Release 5 MG TABLET 10 MG PO (09:12)
[2021-01-18] MEDS: DULoxetine HCl 60 MG CAPSULE.DR PO (09:12)
[2021-01-18] MEDS: Atorvastatin Calcium 20 MG TABLET PO (09:13)
[2021-01-18] MEDS: Metoprolol Succinate ER 50 MG TAB.ER.24H PO (09:13)
[2021-01-18] MEDS: 0.9 % Sodium Chloride Flush 3 ML SYRINGE IVFLUSH (09:13)
[2021-01-18] MEDS: Furosemide 20 MG TABLET PO (09:13)
[2021-01-18] MEDS: Insulin Lispro 100 UNIT/ML 3 ML VIAL SUBCUT (09:14)
--- NOTE | 2021-01-18 09:17 | P.DS_ITS ---
DS: Providers Provider Date of Service: 01/18/21 Date of admission: 01/16/21 23:16 Primary care physician: Jacquelyn Presley MD Consults: 01/17/21 01:09 Consult to Obstetrics / Gynecology Routine Consulting Provider: Jalen Lemus Reason for consultation: vaginal bleed Has provider been notified: No DS: Diagnosis Discharge Diagnosis (1) Hypoglycemia: Status: Acute (2) Vaginal bleeding: Status: Acute DS: Medications Discharge Medications Home Medications: Home Medications Medication Instructions Recorded Confirmed acetaminophen 650 mg PO Q4H PRN 01/16/21 01/16/21 aspirin 81 mg PO DAILY 01/16/21 01/16/21 atorvastatin 1 tab PO DAILY 01/16/21 01/16/21 bisacodyl 10 mg [place] DAILY PRN 01/16/21 01/16/21 divalproex 1 tab PO BID 01/16/21 01/16/21 duloxetine 1 cap PO DAILY 01/16/21 01/16/21 duloxetine 1 cap PO DAILY 01/16/21 01/16/21 furosemide 20 mg PO DAILY 01/16/21 01/16/21 insulin aspart U-100 [Novolog 5 unit SUBCUT TIDAC 01/16/21 01/16/21 U-100 Insulin aspart] insulin aspart U-100 [Novolog See Rx Instructions .ROUTE .COMPLEX 01/16/21 01/16/21 U-100 Insulin aspart] insulin detemir U-100 [Levemir 100 unit SUBCUT BID 01/16/21 01/16/21 U-100 Insulin] magnesium oxide 400 mg PO DAILY 01/16/21 01/16/21 metoprolol succinate 1 tab PO DAILY 01/16/21 01/16/21 oxycodone 1 tab PO BID 01/16/21 01/16/21 oxycodone 5 mg PO Q4H PRN 01/16/21 01/16/21 polyethylene glycol 3350 [Miralax] 17 g PO DAILY 01/16/21 01/16/21 pregabalin 1 cap PO BID 01/16/21 01/16/21 trazodone 37.5 mg PO DAILY 01/16/21 01/16/21 DS: Summary Hospital Course Hospital Course: HPI from 01/17 66-year-old female with past medical history of CAD, depression, diabetes, HTN, HLD, among others who presents to the hospital from senior care with complaints of vaginal bleeding. Patient reports that she has had vaginal bleeding for a while now, and had worsened this morning and therefore senior care sent her to the hospital. She does have an appointment outpatient for evaluation of this vaginal bleeding with an Ob Gyne in the next few days. She also reports poor oral intake for the past 2 days, just feels nauseous and does not have any appetite. She denies any abdominal pain, no chest pain, no shortness of breath, no diarrhea, no constipation, no urinary symptoms and no lower extremity edema. No headache or change in vision. While in the ED workup showed a POC glucose of 54, apparently patient received 100 units of long-acting in a.m. but had no appetite of eating. Patient remained hypoglycemic despite being on D5 as well as receiving 2 rounds of D50. Patient is being admitted for hypoglycemia Hospital course: In regards to her hypoglycemia : Patient hypoglycemia improved on D10, D10 was discontinued and patient was eating and drinking well. Patient became hypoglycemic and she was placed on sliding scale insulin. Her baseline Levemir was decreased from 100 units b.i.d. to 25 b.i.d. given her significant hypoglycemia and need for D10, and multiple doses of D50. Patient will need to follow-up with primary care for evaluation of her insulin requirement. Continue the 5 units of lispro 5 t.i.d. In regards to the vaginal bleeding: Patient was evaluated by Ob Gyne.A 3 cm cervical polyp. OB Gyne a recommended patient transfer to tertiary care center. Case was discussed with Dr. Vega @ [facility] GROUTER HELPER. Full details given including labs + imaging studies. At this time, she does not feel the patient needs inpatient to inpatient transfer. If her h/h drops then we could call her back. In the mean time -- she has been given a f/u at the [facility] on January 22 @ 840AM.Hemoglobin has remained stable. If she has severe bleeding we recommend patient be transferred to tertiary care. Aspirin was held due to the vaginal bleed, can be resumed once pt bleeding has resolved and managed. GBS bacteremia most likely contaminant, cultures were repeated and negative to date with no evidence of infection, afebrile Time Spent with Patient Time attestation: Total time spent providing and/or coordinating discharge services: Discharge coordination time: Greater than 30 minutes Physical Exam Vital Signs: Vital Signs: Last Vital Signs Temp 97.3 F 01/18/21 07:09 Pulse 98 01/18/21 07:09 Resp 17 01/18/21 07:09 BP 125/48 L 01/18/21 07:09 Pulse Ox 94 01/18/21 07:09 Oxygen Flow Rate 2 01/16/21 10:57 Body Mass Index 50.1 Const: General: cooperative and no acute distress Orientation/consciousness: patient oriented x3 Eyes: General: appearance normal, both eyes and all related structures Resp: Effort & Inspection: normal respiratory effort and able to speak in complete sentences Cardio: Rate: regular rate Rhythm: regular rhythm GI: Palpation (GI): Soft to palpation Auscultation: normal bowel sounds Skin: General skin exam: no rashes or lesions noted Neuro: General: patient oriented x3 Cognition (Neuro): normal cognition Extrem: General: Yes normal to inspection and Yes no pedal edema DS: Data Data Completed and Pending Labs on day of discharge: Laboratory Results - last 24 hr 01/17/21 01/17/21 01/17/21 10:13 11:12 12:37 WBC RBC Hgb 14.0 Hct 43.6 MCV MCH MCHC RDW Plt Count MPV Absolute Nucleated RBC Nucleated RBC % (auto) POC Glucose 215 H 225 H 01/17/21 01/17/21 01/18/21 16:19 20:23 05:58 WBC 17.3 H RBC 4.48 Hgb 12.6 Hct 39.6 MCV 88.4 MCH 28.1 MCHC 31.8 RDW 12.6 Plt Count 276 MPV 10.1 Absolute Nucleated RBC 0.000 Nucleated RBC % (auto) 0.0 POC Glucose 268 H 261 H 01/18/21 07:10 WBC RBC Hgb Hct MCV MCH MCHC RDW Plt Count MPV Absolute Nucleated RBC Nucleated RBC % (auto) POC Glucose 315 H Preliminary micro results at discharge 01/16/21 17:07 Routine Culture - Preliminary Vaginal Culture in progress. 01/16/21 14:58 Blood Culture - Preliminary Blood - Venous No growth after 24 hours. Discharge Plan Discharge Patient Disposition: [facility] Discharge Diagnosis: Vaginal bleed 2/2 cervical lesion Referrals: [facility] [Other] - 1 Day (return back to detention facility [facility] transportation action bls with oxygen) [facility] [Other] - 1 Week Jacquelyn Presley MD [Primary Care Provider] - 1 Week Sussy Soria MD [Physician] - 2 days Discharge Medications: Continued acetaminophen 325 mg Tablet 650 mg PO Q4H PRN (Reason: Fever Or Pain) RF: 0 atorvastatin 20 mg tablet 1 tab PO DAILY RF: 0 divalproex 250 mg tablet,delayed release (DR/EC) 1 tab PO BID RF: 0 trazodone 50 mg Tablet 37.5 mg PO DAILY RF: 0 metoprolol succinate 50 mg tablet extended release 24 hr 1 tab PO DAILY RF: 0 bisacodyl 10 mg Suppository 10 mg [place] DAILY PRN (Reason: Constipation) RF: 0 furosemide 20 mg Tablet 20 mg PO DAILY RF: 0 polyethylene glycol 3350 [Miralax] 17 gram/dose Powder 17 g PO DAILY RF: 0 oxycodone 5 mg tablet 5 mg PO Q4H PRN (Reason: Pain) RF: 0 duloxetine 20 mg capsule,delayed release(DR/EC) 1 cap PO DAILY RF: 0 duloxetine 60 mg capsule,delayed release(DR/EC) 1 cap PO DAILY RF: 0 pregabalin 75 mg capsule 1 cap PO BID RF: 0 oxycodone 10 mg tablet 1 tab PO BID RF: 0 magnesium oxide 400 mg magnesium Tablet 400 mg PO DAILY RF: 0 insulin aspart U-100 [Novolog U-100 Insulin aspart] 100 unit/mL solution See Rx Instructions .ROUTE .COMPLEX RF: 0 insulin aspart U-100 [Novolog U-100 Insulin aspart] 100 unit/mL solution 5 unit subcut TIDAC RF: 0 Changed Levemir U-100 Insulin 100 unit/mL solution 25 unit subcut BID Qty: 0 RF: 0 Discontinued aspirin 81 mg Tablet,Delayed Release (Dr/Ec) 81 mg PO DAILY RF: 0 Discharge Orders: Discharge Order (Routine); Ordered 01/18/21 Ordered By: Cole Sheppard Activity on Discharge: As tolerated Stand Alone Forms: Patient Portal Discharge page Activity Restrictions/Additional Instructions: You need to follow-up with OBGYN outpatient, you need a biopsy of her endometrium as her CT scan shows a thickened endometrium with a lot of fluid in her vaginal vault Vaginal cultures were sent, the results should be back in a couple days, you will be contacted with positive results You develop fever, persistent a worsening abdominal pain, nausea/vomiting return to the ED immediately Care Plan Goals: Read below Health Concerns: Read below Plan of Treatment: Patient was admitted to the hospital for hypoglycemia as well as vaginal bleed. Patient hypoglycemia most likely secondary to significant Levemir dose as well as low oral intake. Your Levemir has been decreased to 25 units b.i.d.. Insuli n has to be adjusted based on hemoglobin A1c at senior care. Vaginal bleed secondary to cervical polyp that needs follow-up. You have an appointment with [facility] on January 22 at 8:40 a.m. Assessment: Reduced Levemir to 25 units BID given hypoglycemia follow up with primary regarding insulin dosing In regards to vaginal bleeding have an appointment with the [facility] on January 22- please do not miss If continues to have signicant vaginal bleed, return to ED Patient Instructions: Endometrial Biopsy (DC), Vaginal Discharge (ED)
--- NOTE | 2021-01-18 09:22 | MHC.CM.PN ---
PT DISCHARGING TODAY, PT [facility] RETURN TO [facility] 11[facility] W/ [facility] FOR TRANSPORT. PT HAS FOLLOW-[facility] APPT AT [facility]NER ON 01/22/21 AT 8:40AM
== END 2021-01-18 11:25 | disposition skilled nursing facility (03) | DRG 639 ==
LOC: HO.ED 22:02 → HO.S3 23:58
PROVIDERS: Family Medicine; Obstetrics & Gynecology; Physician Assistant; Admitting Provider Internal Medicine; Emergency Provider Emergency Medicine; PCP Internal Medicine; Visit Provider Internal Medicine
DX: E11.649 Type 2 diabetes mellitus with hypoglycemia without coma (principal); N84.1 Polyp of cervix uteri; E78.5 Hyperlipidemia, unspecified; I10 Essential (primary) hypertension; N95.0 Postmenopausal bleeding; I25.10 Atherosclerotic heart disease of native coronary artery without angina pectoris; F32.9 Major depressive disorder, single episode, unspecified; F41.9 Anxiety disorder, unspecified; Z20.822 Contact with and (suspected) exposure to COVID-19; Z79.4 Long term (current) use of insulin; Z79.891 Long term (current) use of opiate analgesic; Z79.899 Other long term (current) drug therapy
CPT/HCPCS: 36415; 71045; 74177; 80048; 80076; 82947; 83605; 83690; 83735; 85014; 85018; 85025; 85027; 85610; 85730; 87040; 87071; 87147; 87205; 87480; 87491; 87510; 87591; 87635; 87660; 93005; 96374; 96375; 99285; J2060; Q9967

== ENCOUNTER 2021-02-03 11:06 | Outpatient (REF) | payer MEDICARE, SELFPAY | END 2021-02-03 11:07 | disposition home or self-care (01) | LOC: HO.LAB 11:06 | PROVIDERS: PCP Internal Medicine; Visit Provider Obstetrics & Gynecology | DX: N95.0 Postmenopausal bleeding (principal) | CPT/HCPCS: 58100; 88305; 99202 ==

== ENCOUNTER → 2021-02-11 13:06 | Outpatient (BNVA) | payer MEDICARE, SELFPAY | PROVIDERS: Visit Provider Obstetrics & Gynecology | DX: N95.0 Postmenopausal bleeding (principal) | CPT/HCPCS: Q3014 ==

== ENCOUNTER → 2021-02-25 11:59 | Outpatient (BNVA) | payer MEDICARE, SELFPAY | PROVIDERS: Visit Provider Obstetrics & Gynecology | CPT/HCPCS: Q3014 ==

== ENCOUNTER 2021-03-13 12:44 | Day surgery (SDC) | payer MEDICARE, SELFPAY ==
[2021-03-10 08:42] VITALS: BMI 48.4
--- NOTE | 2021-03-10 10:21 | P.CONAN_ITS ---
Documented by User: Sarah Craig 03/10/21 10:24 HPI - Anesthesia Eval Consult details Narrative: 66yo F for D&C Hysteroscopy PMFSH Active Problems Active Problems: All Active Problems (Updated 03/07/21 @ 14:49 by Joyce Romeo) Vaginal bleeding (Acute) Cervical lesion (Acute) Postmenopausal bleeding (Acute) Past Medical History Medical History Anxiety CAD (coronary artery disease) Chronic respiratory disease COVID-19 COVID-19 vaccine administered Depression Diabetes Foul smelling vaginal discharge HLD (hyperlipidemia) HTN (hypertension) Low back pain Osteoarthritis Personality disorder Thickened endometrium Venous (peripheral) insufficiency Surgical History Surgical History Hx of heart artery stent Social History Social History Housing: Intermediate Are you a primary campground caretaker to a significant other at home: No Do you presently have visiting nurse or other home services: Yes (resides at [facility]) Alcohol intake: never Patient Tobacco Use Status: Tobacco use Unknown Are you DNR?: No Advance Directives: Yes Advance Directives Information Provided: Yes Advance Directives on File: Yes Advance Directives Date on File: 01/16/21 service: No Current occupational status: disabled Meds Allergies Allergy/AdvReac Type Severity Reaction Status Date / Time No Known Allergies Allergy Verified 02/25/21 11:59 [No Known Allergies*] Home Medications Medication Instructions Recorded Confirmed Last Taken Type acetaminophen 650 mg PO Q4H PRN 01/16/21 03/10/21 Unknown History atorvastatin 1 tab PO DAILY 01/16/21 03/10/21 Unknown History bisacodyl 10 mg [place] DAILY PRN 01/16/21 03/10/21 Unknown History divalproex 1 tab PO BID 01/16/21 03/10/21 Unknown History duloxetine 1 cap PO QAM 01/16/21 03/10/21 Unknown History duloxetine 1 cap PO QAM 01/16/21 03/10/21 Unknown History furosemide 20 mg PO DAILY 01/16/21 03/10/21 Unknown History insulin aspart U-100 [Novolog 5 unit SUBCUT TIDAC 01/16/21 03/10/21 Unknown History U-100 Insulin aspart] insulin aspart U-100 [Novolog See Rx Instructions .ROUTE .COMPLEX 01/16/21 03/10/21 Unknown History U-100 Insulin aspart] magnesium oxide 400 mg PO DAILY 01/16/21 03/10/21 Unknown History metoprolol succinate 1 tab PO DAILY 01/16/21 03/10/21 Unknown History oxycodone 1 tab PO BID 01/16/21 03/10/21 Unknown History oxycodone 5 mg PO Q4H PRN 01/16/21 03/10/21 Unknown History polyethylene glycol 3350 [Miralax] 17 g PO DAILY 01/16/21 03/10/21 Unknown History pregabalin 1 cap PO BID 01/16/21 03/10/21 Unknown History trazodone 37.5 mg PO DAILY 01/16/21 03/10/21 Unknown History Levemir U-100 Insulin 65 unit SUBCUT BID 03/10/21 03/10/21 Unknown History lorazepam 0.5 mg PO BEDTIME 03/10/21 03/10/21 Unknown History lorazepam [Ativan] 0.5 mg PO TID PRN 03/10/21 03/10/21 Unknown History ondansetron HCl [Zofran] 4 mg PO Q6H PRN 03/10/21 03/10/21 Unknown History Exam Exam Date and Time: March 10, 2021 1021 Height,Weight and Vital Signs: Height 5 ft 9 in Weight 148.778 kg Pertinent Lab Results Pertinent Lab Results: Laboratory Tests 01/17/21 01/18/21 04:26 05:58 WBC 17.3 H Hgb 12.6 Hct 39.6 Plt Count 276 Sodium 134 L Potassium 4.4 Chloride 92 L Carbon Dioxide 34 H BUN 13 Creatinine 0.75 Narrative Narrative: EKG 12/2020 Vent. Rate : 076 BPM Atrial Rate : 076 BPM P-R Int : 166 ms QRS Dur : 092 ms QT Int : 404 ms P-R-T Axes : 074 002 059 degrees QTc Int : 454 ms Normal sinus rhythm Nonspecific T wave abnormality Abnormal ECG When compared with ECG of 16-APR-2020 20:13, No significant change was found Assessment and Plan Assessment Anesthesia Assessment: Chart Reviewed Documented by User: Nicolas Quiñonez MD 03/13/21 13:34 PMFSH Past Medical History Medical History Anxiety CAD (coronary artery disease) Chronic respiratory disease COVID-19 COVID-19 vaccine administered Depression Diabetes Foul smelling vaginal discharge HLD (hyperlipidemia) HTN (hypertension) Low back pain Osteoarthritis Personality disorder Thickened endometrium Venous (peripheral) insufficiency Surgical History Surgical History Hx of heart artery stent Social History Social History Housing: Intermediate Are you a primary campground caretaker to a significant other at home: No Do you presently have visiting nurse or other home services: Yes (resides at [facility]) Alcohol intake: never Patient Tobacco Use Status: Tobacco use Unknown Are you DNR?: No Advance Directives: Yes Advance Directives Information Provided: Yes Advance Directives on File: Yes Advance Directives Date on File: 01/16/21 service: No Current occupational status: disabled Meds Allergies Allergy/AdvReac Type Severity Reaction Status Date / Time No Known Allergies Allergy Verified 02/25/21 11:59 [No Known Allergies*] Home Medications Medication Instructions Recorded Confirmed Last Taken Type acetaminophen 650 mg PO Q4H PRN 01/16/21 03/10/21 Unknown History atorvastatin 1 tab PO DAILY 01/16/21 03/10/21 Unknown History bisacodyl 10 mg [place] DAILY PRN 01/16/21 03/10/21 Unknown History divalproex 1 tab PO BID 01/16/21 03/10/21 Unknown History duloxetine 1 cap PO QAM 01/16/21 03/10/21 Unknown History duloxetine 1 cap PO QAM 01/16/21 03/10/21 Unknown History furosemide 20 mg PO DAILY 01/16/21 03/10/21 Unknown History insulin aspart U-100 [Novolog 5 unit SUBCUT TIDAC 01/16/21 03/10/21 Unknown History U-100 Insulin aspart] insulin aspart U-100 [Novolog See Rx Instructions .ROUTE .COMPLEX 01/16/21 03/10/21 Unknown History U-100 Insulin aspart] magnesium oxide 400 mg PO DAILY 01/16/21 03/10/21 Unknown History metoprolol succinate 1 tab PO DAILY 01/16/21 03/10/21 Unknown History oxycodone 1 tab PO BID 01/16/21 03/10/21 Unknown History oxycodone 5 mg PO Q4H PRN 01/16/21 03/10/21 Unknown History polyethylene glycol 3350 [Miralax] 17 g PO DAILY 01/16/21 03/10/21 Unknown History pregabalin 1 cap PO BID 01/16/21 03/10/21 Unknown History trazodone 37.5 mg PO DAILY 01/16/21 03/10/21 Unknown History Levemir U-100 Insulin 65 unit SUBCUT BID 03/10/21 03/10/21 Unknown History lorazepam 0.5 mg PO BEDTIME 03/10/21 03/10/21 Unknown History lorazepam [Ativan] 0.5 mg PO TID PRN 03/10/21 03/10/21 Unknown History ondansetron HCl [Zofran] 4 mg PO Q6H PRN 03/10/21 03/10/21 Unknown History Exam Airway Mallampati Class: III TM Dist: >3cm Neck ROM: Full Denture: Upper and Lower Assessment and Plan Assessment Anesthesia Assessment: Anesthesia Plan Discussed and Chart Reviewed Final Anesthetic Review NPO: Yes ASA Class: III Final Preanesthetic Review: No Changes in Pt Med Stat, Meds/Allgs Chart Reviewed, Consent Obtained/Reviewed and Anes Risks/Benef Reviewed Patient Risk: High Procedure Risk: Low Anesthetic Plan Anesthetic Plan: GA Disposition: Standard PACU
[2021-03-13] VITALS (7 sets, daily range): BP systolic 116–144; BP diastolic 44–63; PULSE 70–86; RESP 10–18; TEMP 36.3–36.9; O2SAT 96–99
[2021-03-13 13:07] LABS: Glucose, Whole Blood 295 mg/dL (60-115)
[2021-03-13] MEDS: Lactated Ringers 1,000 ML 100 ML IVCONT (13:17)
--- NOTE | 2021-03-13 13:18 | PC.NURSE ---
redness noted underneath neck.
--- NOTE | 2021-03-13 13:20 | MHC.SHP ---
Pre-Procedural Eval Section A The patient is an INPATIENT: No Changes since office visit: No Cold of Flu in the past 2 weeks, No New Medical Problems, No Changes in Medication and No Patient answered all questions The History & Physical has been completed within 30 days and I have reviewed it.: Yes Section B Chief Complaint: postmenopausal bleeding Allergies: Allergies Allergy/AdvReac Type Severity Reaction Status Date / Time No Known Allergies Allergy Verified 02/25/21 11:59 [No Known Allergies*] Plan I have reviewed the history and physical and performed a pertinent physical examination on my patient. No changes have occurred unless specified.
--- NOTE | 2021-03-13 13:22 | W.PM.OPN ---
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 Emanuel is a 66 year old with postmenopausal bleeding for over a year. She presents today for hysteroscopy d&c for further evaluation after endometrial biopsy in the office revealed only scant fragment of inflamed epithelium and granulation tissue; no malignancy identified. Surgical Risks: The patient was informed of the risks and benefits of a hysteroscopy with dilation and curettage. Risks included but were not limited to bleeding, infection, injury to the vulva, vagina, or cervix, and uterine perforation with possible need for further surgery. The patient expressed understanding of the risks involved, all questions were answered, and the patient consented to the procedure. The patient was taken to the operating room where a time out was confirmed to confirm correct patient and correct procedure. Adequate general anesthesia was established. The patient was then positioned on the operating table in the dorsal lithotomy position with her legs supported using stirrups. All pressure points were padded and awarm blanket was placed to maintain control of core body temperature. The patient was then prepped and draped in the usual sterile fashion. A straight catheter was inserted into the bladder and 100mL of urine was obtained. A bivalve speculum was then inserted into the vagina. A large mass was noted to be filling the upper vagina with the appearance of a prolapsed fibroid. The speculum was removed and a bimanual exam performed to confirm that the mass was coming from the cervix. The bivalve speculum was replaced and the mass was grasped with a ring forceps and twisted 360 degrees while gentle traction was applied until the mass . This was sent to pathology. The posterior lip of the cervix was visualized and grasped using a single tooth tenaculum. A paracervical block was performed with 6cc 0.5% bupivicaine injected, 3cc each, at 4 and 8 o'clock. Adequate visualization could not be obtained to identify the cervical os despite repositioning the light and speculum so the hysteroscope was introduced under direct visualization using normal saline solution as the distending media. The hysteroscope was advanced; however due to the length of the vagina and uterus, the scope did not reach the fundus. The tay were noted to be fluffy with polypoid appearing tissue. On the right, there were two small masses noted, polypoid in appearance. The myosure device was introduced through the hysteroscope and directed curettage was performed. Suction on the hysteroscope was not functioning correctly and visibility was not able to be maintained for safe curettage. It was felt that adequate tissue had been removed for diagnostic purposes and the procedure was terminated. The hysteroscope was then removed. It was again attempted to visually locate the cervical os for introduction of a sharp curette; however despite repositioning the speculum and light and manipulating the cervix with the tenaculum, the os could not be visually identified. The endometrial tissue obtained with the myosure was sent to pathology. The single-tooth tenaculum was removed from the posterior lip of the cervix and hemostasis was also noted at the tenaculum puncture sites. The speculum was then removed from the vagina. At the end of the procedure, all needle, sponge, and instrument counts were noted to be correct x2. The patient was transferred to the recovery room in stable condition.
== END 2021-03-13 15:58 | disposition skilled nursing facility (03) ==
PROVIDERS: PCP Internal Medicine; Visit Provider Obstetrics & Gynecology
PROC: 0UDB8ZZ Extraction of Endometrium, Via Natural or Artificial Opening Endoscopic (ICD-10-PCS; CPT 58558; principal; 2021-03-13 13:30)
DX: N95.0 Postmenopausal bleeding (principal); D25.9 Leiomyoma of uterus, unspecified; N84.0 Polyp of corpus uteri; R93.89 Abnormal findings on diagnostic imaging of other specified body structures; J98.9 Respiratory disorder, unspecified; I25.10 Atherosclerotic heart disease of native coronary artery without angina pectoris; Z98.61 Coronary angioplasty status; I10 Essential (primary) hypertension; I87.2 Venous insufficiency (chronic) (peripheral); E11.9 Type 2 diabetes mellitus without complications; Z79.4 Long term (current) use of insulin; Z79.899 Other long term (current) drug therapy; Z86.16 Personal history of COVID-19
CPT/HCPCS: 58558; 82947; 88305; J0330; J1100; J2250; J2405; J3010

== ENCOUNTER 2021-11-27 15:01 | Emergency (ER) | payer MEDICARE, MEDICAID, SELFPAY ==
--- NOTE | ~2021-11-27 | CT_ITS ---
EXAMINATION: CT CERVICAL SPINE WITHOUT CONTRAST CLINICAL INFORMATION: Fall, trauma, pain COMPARISON: CT C-spine noncontrast 07/16/2016, CT head 11/27/2021 TECHNIQUE: Multidetector volumetric CT imaging of the cervical spine is performed without contrast in the axial plane. Additional 2D reformatted coronal and sagittal images are generated on the CT workstation and uploaded to PACS. This CT examination was performed using dose optimization techniques as appropriate, variously including the following: *Automated exposure control *Adjustment of mA and/or kV according to patient size (this includes techniques or standardized protocols for targeted exams where dose is matched to indication/reason for exam; i.e. extremities or head) *Use of iterative reconstruction technique DLP: 672 mGy-cm FINDINGS: There is no vertebral compression fracture, fracture line, spondylolisthesis, or prevertebral soft tissue swelling. The craniocervical junction appears normal. The odontoid appears intact. There is mild reversal cervical lordosis is also noted on remote prior exam 07/16/2016. There are degenerative changes between anterior arch C1 and the dens and variable multilevel vertebral spurring. There is mild disc narrowing C6-C7. No perched facet. There is no apical pneumothorax. CT/CT cervical spine wo con IMPRESSION: 1. No acute bony abnormality or prevertebral soft tissue swelling. 2. Reversal cervical lordosis, similar to prior exam 07/16/2016. 3. Variable degenerative changes and vertebral spurring.
--- NOTE | ~2021-11-27 | XR_ITS ---
EXAMINATION: CHEST, RIGHT SHOULDER, PELVIS AND RIGHT FEMUR CLINICAL INFORMATION: Fall. COMPARISON: None TECHNIQUE: Chest one view. Right shoulder 4 views. AP pelvis 2 views. Right femur 2 views. FINDINGS: Chest: Both lungs are fairly well-expanded and clear of acute pneumonic process. The heart size and pulmonary vascularity is normal. No gross bony abnormality seen. Right shoulder: There is no visible acute fracture, dislocation or subluxation. There is loss of glenohumeral and AC joint space with periarticular spurring. There is moderate enthesophytes along the lateral acromion and lateral greater tuberosity. No loose bodies of bony erosive changes seen. Right femur: There is no visible acute fracture, dislocation or subluxation seen. AP pelvis: There is loss of right hip joint space with moderate periapical spurring. The left hip joint space is normal. No loose bodies or bony erosive changes seen. XR/XR chest 1V IMPRESSION: Unremarkable chest exam. Degenerative arthritic changes right AC and right glenohumeral joint space. No visible acute fracture or dislocation seen. Moderate degenerative changes right knee joint. There is diffuse osteopenia. No visible fracture seen. There is no visible acute fracture involving the right femur. No bony abnormality.
--- NOTE | ~2021-11-27 | XR_ITS ---
EXAMINATION: CHEST, RIGHT SHOULDER, PELVIS AND RIGHT FEMUR CLINICAL INFORMATION: Fall. COMPARISON: None TECHNIQUE: Chest one view. Right shoulder 4 views. AP pelvis 2 views. Right femur 2 views. FINDINGS: Chest: Both lungs are fairly well-expanded and clear of acute pneumonic process. The heart size and pulmonary vascularity is normal. No gross bony abnormality seen. Right shoulder: There is no visible acute fracture, dislocation or subluxation. There is loss of glenohumeral and AC joint space with periarticular spurring. There is moderate enthesophytes along the lateral acromion and lateral greater tuberosity. No loose bodies of bony erosive changes seen. Right femur: There is no visible acute fracture, dislocation or subluxation seen. AP pelvis: There is loss of right hip joint space with moderate periapical spurring. The left hip joint space is normal. No loose bodies or bony erosive changes seen. XR/XR femur RT 2V IMPRESSION: Unremarkable chest exam. Degenerative arthritic changes right AC and right glenohumeral joint space. No visible acute fracture or dislocation seen. Moderate degenerative changes right knee joint. There is diffuse osteopenia. No visible fracture seen. There is no visible acute fracture involving the right femur. No bony abnormality.
--- NOTE | ~2021-11-27 | CT_ITS ---
EXAMINATION: CT HEAD WITHOUT CONTRAST CLINICAL INFORMATION: Fall, trauma, pain COMPARISON: CT had noncontrast 07/16/2016 TECHNIQUE: Contiguous axial imaging was performed from the skull base to vertex without intravenous administration of contrast. Additional 2-D coronal and sagittal reformatted images are generated on the CT workstation and uploaded to PACS. This CT examination was performed using dose optimization techniques as appropriate, variously including the following: *Automated exposure control *Adjustment of mA and/or kV according to patient size (this includes techniques or standardized protocols for targeted exams where dose is matched to indication/reason for exam; i.e. extremities or head) *Use of iterative reconstruction technique DLP: 858 mGy-cm FINDINGS: There is no intracranial hemorrhage, hematoma, or extra-axial fluid collection. The ventricles are normal in size. There is no hydrocephalus, edema, or mass effect. The gates-white matter differentiation appears well preserved . There are mild generalized atrophic changes with prominence of the cortical sulci and fissures and cisterns. There is no visible acute territorial infarct or mass lesion. The calvarium appears intact. There is no pneumocephalus or orbital emphysema. The visualized sinuses and middle ears and mastoid air cells show no significant mucosal thickening. There are no air-fluid levels. CT/CT head/brain wo con IMPRESSION: No acute intracranial abnormality.
--- NOTE | ~2021-11-27 | XR_ITS ---
EXAMINATION: CHEST, RIGHT SHOULDER, PELVIS AND RIGHT FEMUR CLINICAL INFORMATION: Fall. COMPARISON: None TECHNIQUE: Chest one view. Right shoulder 4 views. AP pelvis 2 views. Right femur 2 views. FINDINGS: Chest: Both lungs are fairly well-expanded and clear of acute pneumonic process. The heart size and pulmonary vascularity is normal. No gross bony abnormality seen. Right shoulder: There is no visible acute fracture, dislocation or subluxation. There is loss of glenohumeral and AC joint space with periarticular spurring. There is moderate enthesophytes along the lateral acromion and lateral greater tuberosity. No loose bodies of bony erosive changes seen. Right femur: There is no visible acute fracture, dislocation or subluxation seen. AP pelvis: There is loss of right hip joint space with moderate periapical spurring. The left hip joint space is normal. No loose bodies or bony erosive changes seen. XR/XR pelvis 1-2V IMPRESSION: Unremarkable chest exam. Degenerative arthritic changes right AC and right glenohumeral joint space. No visible acute fracture or dislocation seen. Moderate degenerative changes right knee joint. There is diffuse osteopenia. No visible fracture seen. There is no visible acute fracture involving the right femur. No bony abnormality.
--- NOTE | ~2021-11-27 | XR_ITS ---
EXAMINATION: CHEST, RIGHT SHOULDER, PELVIS AND RIGHT FEMUR CLINICAL INFORMATION: Fall. COMPARISON: None TECHNIQUE: Chest one view. Right shoulder 4 views. AP pelvis 2 views. Right femur 2 views. FINDINGS: Chest: Both lungs are fairly well-expanded and clear of acute pneumonic process. The heart size and pulmonary vascularity is normal. No gross bony abnormality seen. Right shoulder: There is no visible acute fracture, dislocation or subluxation. There is loss of glenohumeral and AC joint space with periarticular spurring. There is moderate enthesophytes along the lateral acromion and lateral greater tuberosity. No loose bodies of bony erosive changes seen. Right femur: There is no visible acute fracture, dislocation or subluxation seen. AP pelvis: There is loss of right hip joint space with moderate periapical spurring. The left hip joint space is normal. No loose bodies or bony erosive changes seen. XR/XR shoulder RT min 2V IMPRESSION: Unremarkable chest exam. Degenerative arthritic changes right AC and right glenohumeral joint space. No visible acute fracture or dislocation seen. Moderate degenerative changes right knee joint. There is diffuse osteopenia. No visible fracture seen. There is no visible acute fracture involving the right femur. No bony abnormality.
[2021-11-27 15:10] VITALS: BP 193/88; PULSE 102; O2SAT 98; BMI 43.2
--- NOTE | 2021-11-27 15:18 | ED.FALL ---
HPI - Fall General Chief Complaint: Fall Stated Complaint: R LEG/RADHA SHOULDER PAIN S/P FALL @ 6AM PER SNF Time Seen by Provider: 11/27/21 15:05 Source: patient Mode of arrival: EMS Limitations: no limitations History of Present Illness HPI Narrative: patient tells me that she doesn't usually ambulate (this is documented in her SNF records) she tried to get up out of bed this AM and she slipped injury her R knee and hip, she did not have LOC but did hit her head. She denies preceding symptoms such as CP/SOB. States she probably shouldn't have tried to get up since she can't ambulate on her own complaint: fall Onset (ago): hour(s) (9am today) Fall from: out of bed Fall witnessed: no Place fall occurred: [facility] Loss of consciousness: none Prolonged down time: minute(s) Context: other (lost balance and unable to stand up on her own when she tried) Location of injury: head and pelvis Location of injury - extremities: right: knee Severity: moderate Quality: dull Associated symptoms (after fall): other (RLE pain from knee to hip) Related Data Home Medications Medication Instructions Recorded Confirmed acetaminophen 325 mg tablet 650 mg PO Q4H PRN 01/16/21 03/10/21 atorvastatin 20 mg tablet 1 tab PO DAILY 01/16/21 03/10/21 bisacodyl 10 mg rectal suppository 10 mg OH DAILY PRN 01/16/21 03/10/21 divalproex 250 mg tablet,delayed 1 tab PO BID 01/16/21 03/10/21 release duloxetine 20 mg capsule,delayed 1 cap PO QAM 01/16/21 03/10/21 release duloxetine 60 mg capsule,delayed 1 cap PO QAM 01/16/21 03/10/21 release furosemide 20 mg tablet 20 mg PO DAILY 01/16/21 03/10/21 insulin aspart U-100 100 unit/mL 5 unit SUBCUT TIDAC 01/16/21 03/10/21 subcutaneous solution (Novolog U-100 Insulin aspart) insulin aspart U-100 100 unit/mL See Rx Instructions .ROUTE .COMPLEX 01/16/21 03/10/21 subcutaneous solution (Novolog U-100 Insulin aspart) magnesium oxide 400 mg PO DAILY 01/16/21 03/10/21 metoprolol succinate 50 mg 1 tab PO DAILY 01/16/21 03/10/21 tablet,extended release 24 hr oxycodone 10 mg tablet 1 tab PO BID 01/16/21 03/10/21 oxycodone 5 mg tablet 5 mg PO Q4H PRN 01/16/21 03/10/21 polyethylene glycol 3350 17 17 g PO DAILY 01/16/21 03/10/21 gram/dose oral powder (Miralax) pregabalin 75 mg capsule 1 cap PO BID 01/16/21 03/10/21 trazodone 50 mg tablet 37.5 mg PO DAILY 01/16/21 03/10/21 insulin detemir U-100 100 unit/mL 65 unit SUBCUT BID 03/10/21 03/10/21 subcutaneous solution (Levemir U-100 Insulin) lorazepam 0.5 mg tablet 0.5 mg PO BEDTIME 03/10/21 03/10/21 lorazepam 0.5 mg tablet (Ativan) 0.5 mg PO TID PRN 03/10/21 03/10/21 ondansetron HCl 4 mg tablet 4 mg PO Q6H PRN 03/10/21 03/10/21 (Zofran) Allergies Allergy/AdvReac Type Severity Reaction Status Date / Time No Known Allergies Allergy Verified 02/25/21 11:59 [No Known Allergies*] Review of Systems Review of Systems: Constitutional : No Fever, No Chills ENT/Mouth : No Ear Pain, No Hoarseness, No sore throat Eyes: No Eye Pain, No Swelling, No Redness, No Foreign Body Cardiovascular : No Chest Pain, No SOB Respiratory : No Cough, No Dyspnea Gastrointestinal : No Nausea, No Vomiting, No Diarrhea, No abdominal Pain Genitourinary : No Dysuria, No Hematuria Musculoskeletal : positive joint pain, No Myalgias, pos Joint Swelling Skin : No Skin lacerations, No rash Neuro : No Weakness, No Numbness, No Loss of Consciousness, No Dizziness, No Headache Psych : No Anxiety/Panic, No Depression Heme/Lymph: no easy bruising, no Lymphadenopathy Endocrine : No Polyuria, No Polydipsia All other systems reviewed and are negative PMFSH Past Medical History Attestation statement: The following information was validated with the patient. Medical History (Updated 11/27/21 @ 15:58 by Lexi Riggs DO) Anxiety CAD (coronary artery disease) Chronic respiratory disease COVID-19 COVID-19 vaccine administered Depression Diabetes Foul smelling vaginal discharge HLD (hyperlipidemia) HTN (hypertension) Low back pain Osteoarthritis Personality disorder Thickened endometrium Venous (peripheral) insufficiency Surgical History Hx of heart artery stent Social History Social History Housing: Longterm Are you a primary resident care assistant to a significant other at home: No Do you presently have visiting nurse or other home services: Yes (resides at [facility]) Alcohol intake: never Patient Tobacco Use Status: Tobacco use Unknown Advance Directives: Yes Advance Directives on File: Yes Advance Directives Date on File: 01/16/21 service: No Current occupational status: disabled Physical Exam Vital Signs: Vital Signs: Last Vital Signs Temp 98.0 F 11/27/21 15:19 Pulse 99 11/27/21 15:19 Resp 20 11/27/21 15:19 BP 152/62 H 11/27/21 15:19 Pulse Ox 99 11/27/21 15:19 BMI result Body Mass Index 43.2 Appearance: Alert. Oriented X3. No acute distress. Eyes: Pupils equal, round and reactive to light. ENT: Pharynx normal. Neck: Normal inspection. Neck supple. CVS: Normal heart rate and rhythm. Pulses normal. Respiratory: No respiratory distress. Breath sounds normal. Abdomen: Soft and non-tender. morbidly obese Skin: Skin warm and dry. Normal skin color. Normal skin turgor. Extremities: pitting LE edema 1 to 2+ R L ext rotate distal NV intact 2+ DP pulse pain at knee and hip cannot range leg. full ROM of both UE on R and L Neuro: Oriented X 3. No motor deficit. No sensory deficit. Course Course Course Narrative: signed out to Lonnie KAUR pending workup MDM - Fall MDM Narrative Medical decision making narrative: 66 yo female with morbid obesity, depression, migraines, chronic pain, asthma, DM, HLD, asthma, does not ambulate or get up on her own - this AM decided she was going to and was unable to do so she fell (no preceding symptoms) now c/o R knee/hip pain at this time will obtain xrays, CT head to r/o ICH/cspine. PO pain medications. Describes mechanical fall. ECG Data Attestation: I personally reviewed and interpreted this ECG as follows: ECG interpretation date: 11/27/21 ECG interpretation time: 15:46 Interpretation: Rate: 97 Rhythm: NSR [place]: normal Normal P waves. Normal DON. Normal QRS complex. ST T wave : no WILLIAN, normal qTC: normal prior studies: no acute ischemia The study has been interpreted contemporaneously by me. . Discharge Plan Discharge Clinical Impression: Fall Qualifiers: Encounter type: initial encounter Qualified Code(s): W19.XXXA - Unspecified fall, initial encounter Patient Disposition: Still a Patient Prescriptions: No Action acetaminophen 325 mg Tablet 650 mg PO Q4H PRN (Reason: Fever Or Pain) 0RF atorvastatin 20 mg tablet 1 tab PO DAILY 0RF divalproex 250 mg tablet,delayed release (DR/EC) 1 tab PO BID 0RF trazodone 50 mg Tablet 37.5 mg PO DAILY 0RF metoprolol succinate 50 mg tablet extended release 24 hr 1 tab PO DAILY 0RF bisacodyl 10 mg Suppository 10 mg OH DAILY PRN (Reason: Constipation) 0RF furosemide 20 mg Tablet 20 mg PO DAILY 0RF polyethylene glycol 3350 [Miralax] 17 gram/dose Powder 17 g PO DAILY 0RF oxycodone 5 mg tablet 5 mg PO Q4H PRN (Reason: Pain) 0RF duloxetine 20 mg capsule,delayed release(DR/EC) 1 cap PO QAM 0RF duloxetine 60 mg capsule,delayed release(DR/EC) 1 cap PO QAM 0RF pregabalin 75 mg capsule 1 cap PO BID 0RF oxycodone 10 mg tablet 1 tab PO BID 0RF magnesium oxide 400 mg magnesium Tablet 400 mg PO DAILY 0RF insulin aspart U-100 [Novolog U-100 Insulin aspart] 100 unit/mL solution See Rx Instructions .ROUTE .COMPLEX 0RF Rx Instructions: 200-250: 2 UNITS, 251-300 4 UNITS, 301-350 6 UNITS, 351-400 8 UNITS WITH MEALS IN ADDITION TO 5 UNIT ORDER insulin aspart U-100 [Novolog U-100 Insulin aspart] 100 unit/mL solution 5 unit subcut TIDAC 0RF ondansetron HCl [Zofran] 4 mg Tablet 4 mg PO Q6H PRN (Reason: Nausea And Vomiting) 0RF lorazepam 0.5 mg Tablet 0.5 mg PO BEDTIME 0RF lorazepam [Ativan] 0.5 mg Tablet 0.5 mg PO TID PRN (Reason: Anxiety) 0RF Levemir U-100 Insulin 100 unit/mL solution 65 unit subcut BID 0RF
[2021-11-27 15:19] VITALS: BP 152/62; PULSE 99; RESP 20; TEMP 36.7; O2SAT 99
--- NOTE | 2021-11-27 15:20 | ECG_ITS ---
Test Reason : fall Blood Pressure : / mmHG Vent. Rate : 097 BPM Atrial Rate : 097 BPM P-R Int : 188 ms QRS Dur : 094 ms QT Int : 342 ms P-R-T Axes : 059 033 049 degrees QTc Int : 434 ms Normal sinus rhythm Normal ECG When compared with ECG of 16-JAN-2021 14:08, QT has shortened Referred By: Lexi Riggs Electronically Signed By:Blanco Diaz
[2021-11-27 16:20] LABS: MANUAL DIFF FLAG NO
[2021-11-27 16:29] LABS: INTERNATIONAL NORM RATIO 1.1 (0.9-1.1); Prothrombin Time 12.8 SEC (9.9-13.0)
[2021-11-27 16:32] LABS: Basophils Percent Auto 0.2 % (0-2); Eosinophils Absolute Auto 0.1 X10*3/uL (0.0-0.4); Eosinophils Percent Auto 1.3 % (0-4); Hematocrit 41.1 % (37.0-47.0); Hemoglobin 13.1 g/dl (12.0-16.0); Imm Gran Abs Auto 0.04 X10*3/uL (0.00-0.03); Imm Gran Pct Auto 0.4 % (0.0-0.4); Lymphocytes Absolute Auto 1.3 X10*3/uL (1.2-4.9); Lymphocytes Percent Auto 12.4 % (20-40); Mean Corpuscular HGB Conc 31.9 g/dl (31.0-35.0); Mean Corpuscular Hemoglobin 26.1 pg (27.0-33.0); Mean Platelet Volume 11.1 fL (9.4-12.3); Monocytes Absolute Auto 0.8 X10*3/uL (0.1-1.2); Monocytes Percent Auto 7.3 % (2-11); Neutrophils Absolute Auto 8.1 x10*3/uL (2.0-8.3); Neutrophils Percent Auto 78.4 % (45-73); Platelet Count 187 X10*3/uL (160-400); Red Blood Count 5.01 X10*6/uL (4.20-5.50); Red Cell Distribution Width 14.1 % (11.0-16.0); White Blood Count 10.4 X10*3/uL (4.8-10.8)
[2021-11-27 16:48] LABS: COVID-19 Test Negative (Negative); IDNOW Serial# 16C4AD1C
[2021-11-27 17:01] LABS: Alanine Aminotransferase 30 U/L (0-31); Albumin Level 3.5 g/dL (3.5-5.0); Alkaline Phosphatase 77 U/L (39-117); Anion Gap 11 (12-20); Aspartate Amino Transferase 16 U/L (5-31); Bilirubin Direct 0.2 mg/dL (0.0-0.5); Bilirubin Total 0.5 mg/dL (0.0-1.0); Blood Urea Nitrogen 8 mg/dL (9-16); Calcium 9.9 mg/dL (8.4-10.2); Carbon Dioxide 30 mmol/L (22-29); Chloride 99 mmol/L (96-108); Creatinine Clr Calc Pharmacy 103.3; Estimated Glomerular Filt Rate > 60; Glucose Random 350 mg/dL (60-115); Magnesium 1.8 mg/dL (1.6-2.6); Potassium 4.3 mmol/L (3.3-5.1); Sodium 136 mmol/L (135-145); Total Protein 6.2 g/dL (6.5-8.0)
[2021-11-27] MEDS: oxyCODONE HCl Immed Release 5 MG TABLET PO (17:05)
[2021-11-27] MEDS: Acetaminophen 325 MG TABLET 975 MG PO (17:06)
[2021-11-27 18:00] VITALS: BP 132/58; PULSE 88; RESP 16; O2SAT 98
--- NOTE | 2021-11-27 18:34 | PC.NURSE ---
pt noted to have calused looking skin between legs and bilateral feet, also red area on left side and irriatation under neck red unbroken skin.
[2021-11-27 20:07] VITALS: BP 124/63; PULSE 87; RESP 18; O2SAT 97
[2021-11-27 23:38] VITALS: BP 142/52; PULSE 91; RESP 20; O2SAT 98
--- NOTE | 2021-11-28 00:41 | PC.NURSE ---
nurse to nurse report given to Jayshree WILLIS at [facility]
== END 2021-11-28 00:43 | disposition home or self-care (01) ==
PROVIDERS: Emergency Provider Emergency Medicine
DX: M25.561 Pain in right knee (principal); M25.551 Pain in right hip; Z91.81 History of falling; R60.0 Localized edema; I10 Essential (primary) hypertension; E78.5 Hyperlipidemia, unspecified; E11.9 Type 2 diabetes mellitus without complications; Z79.02 Long term (current) use of antithrombotics/antiplatelets; Z79.4 Long term (current) use of insulin; Z79.899 Other long term (current) drug therapy; Z20.822 Contact with and (suspected) exposure to COVID-19
CPT/HCPCS: 70450; 71045; 72125; 72170; 73030; 73552; 80048; 80076; 83735; 85025; 85610; 87635; 93005; 99284

== ENCOUNTER 2023-05-05 08:50 | Inpatient (IN) | payer MEDICARE, MEDICAID, SELFPAY ==
[2023-05-05] VITALS (9 sets, daily range): BP systolic 150–188; BP diastolic 69–97; PULSE 109–138; RESP 17–36; TEMP 36.4–38.4; O2SAT 93–98; BMI 40.1
--- NOTE | 2023-05-05 | ECG_ITS ---
Test Reason : TACHYCARDIA Blood Pressure : / mmHG Vent. Rate : 138 BPM Atrial Rate : 138 BPM P-R Int : 144 ms QRS Dur : 084 ms QT Int : 340 ms P-R-T Axes : 000 005 077 degrees QTc Int : 515 ms Sinus tachycardia Septal infarct , age undetermined Inferior infarct (cited on or before 05-MAY-2023) Abnormal ECG When compared with ECG of 05-MAY-2023 10:12, Septal infarct is now Present Referred By: Elidia Deutsch Electronically Signed By:Blanco Diaz
--- NOTE | ~2023-05-05 | CT_ITS ---
EXAMINATION: CT ABDOMEN WITHOUT CONTRAST CLINICAL INFORMATION: Acute cholecystitis. Needs drainage. Normal white count. No right upper quadrant pain. COMPARISON: CT abdomen 05/05/2023. Ultrasound abdomen 05/05/2023. TECHNIQUE: Contiguous axial thin section helical images of the abdomen were performed without contrast. The data set was reformatted in the coronal and sagittal planes and reviewed on an independent workstation. This CT examination was performed using dose optimization techniques as appropriate, variously including the following: *Automated exposure control *Adjustment of mA and/or kV according to patient size (this includes techniques or standardized protocols for targeted exams where dose is matched to indication/reason for exam; i.e. extremities or head) *Use of iterative reconstruction technique DLP: 151 mGy-cm FINDINGS: Limited imaging was performed in upright abdomen prior to cholecystostomy. The gallbladder is much smaller than the previous CT abdomen exam from 05/05/2023. No gallbladder wall thickening or asif gallbladder fluid collection seen. There is nonspecific fluid along the inferior right hepatic space. Visualized liver, spleen, pancreas, bilateral adrenal glands and the kidneys are unremarkable. CT/CT abdomen wo IV con IMPRESSION: Significantly decreased size of the gallbladder when compared to CT abdomen 05/05/2023. No wall thickening,, radiopaque stones or adjacent fluid collection. CT guided cholecystostomy tube placement was canceled. Patient white count is normal at this time. There is no right upper quadrant pain as well. Results was conveyed personally to Dr. Carmella Bacon after the exam. Fleischner guidelines were followed.
--- NOTE | ~2023-05-05 | CT_ITS ---
EXAMINATION: CT ANGIOGRAM OF THE CHEST WITH AND WITHOUT CONTRAST (CT PULMONARY ANGIOGRAM FOR PE) CLINICAL INFORMATION: Reason for Exam sob,tachy COMPARISON: Chest x-ray 05/05/2023 TECHNIQUE: Prior to contrast administration, noncontrast localization images were obtained. Subsequently, multidetector volumetric imaging was performed from the thoracic inlet to below the diaphragms following the administration of 65 mL Omnipaque 350 intravenous contrast. No contrast reaction reported Sagittal, coronal, and MIP oblique sagittal reformatted images were obtained on the CT workstation, uploaded to PACS, and reviewed. This CT examination was performed using dose optimization techniques as appropriate, variously including the following: *Automated exposure control *Adjustment of mA and/or kV according to patient size (this includes techniques or standardized protocols for targeted exams where dose is matched to indication/reason for exam; i.e. extremities or head) *Use of iterative reconstruction technique Total exam dose-length product 181 mGy-cm FINDINGS: QUALITY OF STUDY/CONTRAST BOLUS: Satisfactory. PULMONARY ARTERIES: No pulmonary emboli. THORACIC AORTA: No aneurysm. Vascular wall calcifications of the aorta. LUNG: No focal consolidation, nodules or masses. PLEURA: No pleural effusion or pneumothorax. MEDIASTINUM: Normal heart size. No pericardial effusion. No hilar or mediastinal lymphadenopathy. No evidence of septal bowing or right heart strain. CORONARY ARTERY CALCIFICATION: Heavy volume of coronary calcification CHEST WALL/AXILLA: No axillary or internal mammary lymphadenopathy. OSSEOUS STRUCTURES: No acute or suspicious osseous abnormality. Multilevel degenerative spondylosis spine. UPPER ABDOMEN: Unremarkable. No reflux of contrast into the hepatic veins to suggest elevated right heart pressures. CT/CT angio chest PE protocol IMPRESSION: No acute abnormality of chest. No evidence of pulmonary embolism. VTE: negative.
--- NOTE | ~2023-05-05 | CT_ITS ---
EXAMINATION: CT ABDOMEN AND PELVIS WITH CONTRAST CLINICAL INFORMATION: Abdominal pain COMPARISON: December 2020. TECHNIQUE: Multidetector volumetric images were obtained from the superior aspect of the liver through the pubic symphysis following administration 85 mL of Omnipaque 350 intravenous contrast. Sagittal and coronal reformatted images were obtained on the technologist's workstation. Oral contrast: No This CT examination was performed using dose optimization techniques as appropriate, variously including the following: *Automated exposure control *Adjustment of mA and/or kV according to patient size (this includes techniques or standardized protocols for targeted exams where dose is matched to indication/reason for exam; i.e. extremities or head) *Use of iterative reconstruction technique DLP: 1164.00 mGy-cm FINDINGS: LUNG BASES: Posterior basilar atelectatic changes. LIVER, GALLBLADDER, AND BILIARY TREE: Small perihepatic ascites. Multiple noncalcific gallstones in the gallbladder lumen. Prominent fundal gallbladder fold is again seen with evidence of patchy stranding of the pericholecystic fat near the gallbladder fundus. PANCREAS: Atrophic. SPLEEN: Unremarkable. ADRENAL GLANDS: Unremarkable. KIDNEYS AND URETERS: No changes of obstructive uropathy. Contrast excretion observed in the ureters, left more pronounced than right. BLADDER: Small dependent excreted contrast material in the urinary bladder. Mild urinary bladder wall thickening anteriorly which may be related to lack of distention. GASTROINTESTINAL TRACT: Colonic diverticulosis. Distal ileum and appendix unremarkable. Mild wall thickening of distal esophagus could be related to lack of distention versus esophagitis. Stomach distended, similar to previous evaluation. No appreciable small bowel obstructive process or abnormal omental thickening. ABDOMINAL WALL: Increased attenuation in the anterior abdominal wall subcutaneous fat to the right of midline could be related to injection sites or edema. LYMPH NODES: Pericholecystic node series 3 image 35 at 7.5 to 8 mm. Small pericardial node similar to the previous evaluation. Periportal and small mesenteric nodes not significantly changed. No suspiciously enlarged retroperitoneal or pelvic adenopathy. VASCULAR: Atherosclerotic changes. PELVIC VISCERA: No new suspicious adnexal masses. Endometrium thickened for a patient of this age at 2 cm; pelvic ultrasonography October 2019 demonstrated similar endometrial thickening. If not already performed, endometrial sampling recommended. OSSEOUS STRUCTURES: Prominent bilateral hip degenerative changes. Multilevel facet arthrosis. Degenerative disc space narrowing seen eccentrically L5-S1. CT/CT abdomen pelvis w IV con IMPRESSION: Multiple noncalcific gallstones. There is prominent fundal gallbladder folds again observed but now with patchy stranding of the pericholecystic fat. Small perihepatic ascites. Mild wall thickening of distal esophagus could be related to lack of distention versus esophagitis. Stomach distended, similar to the previous evaluation. Colonic diverticulosis. Increased attenuation in the anterior abdominal wall subcutaneous fat may be related to injection sites or edema. Endometrium thickened for a patient of this age at 2 cm. If not already performed, endometrial sampling recommended. Other incidental findings as noted above. Fleischner guidelines were followed.
--- NOTE | ~2023-05-05 | US_ITS ---
EXAMINATION: US ABDOMEN LIMITED CLINICAL INFORMATION: Right upper quadrant pain, cholelithiasis, nausea and vomiting. COMPARISON: CT scan of the abdomen and pelvis from earlier today. TECHNIQUE: Real-time imaging of the right upper quadrant abdominal viscera. FINDINGS: PANCREAS: Visualized portions unremarkable. LIVER: Visualized portions unremarkable. GALLBLADDER: Small echogenic gallstone/gallstones near the neck without mural thickening or pericholecystic fluid. COMMON BILE DUCT: Normal in caliber measuring 0.4 cm in diameter. RIGHT KIDNEY: 12.1 cm. Unremarkable. FREE FLUID: None. US/US abdomen limited IMPRESSION: Cholelithiasis without evidence for acute cholecystitis.
--- NOTE | ~2023-05-05 | NM_ITS ---
Examination: Nuclear medicine hepatobiliary scan with [facility]. CLINICAL INDICATION: Acute cholecystitis cystitis with nausea vomiting abdominal pain. Presently patient has no abdominal pain and normal white count. COMPARISON: CT abdomen done parietal HIDA scan 05/07/2023. TECHNIQUE: Following intravenous administration of 5 mCi of 90 9M technetium mebrofenin, imaging over the right upper quadrant was obtained up to 2 hours. FINDINGS: There is normal hepatic uptake without any focal defect. There is visualization of common bile duct by 10 minutes. Small bowel visualized by 25 minutes. Gallbladder is visualized. On initial images the gallbladder was overlying the CBD by 32/33 minutes. Delayed images at 2 hours reveal complete washout of isotope activity from the liver and the ducts as well as the gallbladder. NM/NM hepatobiliary wo pharm IMPRESSION: Normal hepatic uptake. Patent CBD patent cystic duct. Results were conveyed to Dr. Carmella Bacon personally after the scan.
--- NOTE | ~2023-05-05 | XR_ITS ---
EXAMINATION: XR CHEST CLINICAL INFORMATION: Cough. COMPARISON: 11/27/2021 chest radiograph. TECHNIQUE: Frontal view of the chest was obtained. FINDINGS: No significant abnormality is noted involving the heart, lungs, mediastinum, bony thorax or soft tissues. XR/XR chest 1V IMPRESSION: No acute cardiopulmonary process.
--- OUTSIDE RECORDS SUMMARY | 2023-05-05 09:44 | XMS_ITS | Continuity of Care Document ---
Author Name Unknown Organization [facility] Address [address] [place] [id number] Care Team Providers Care [employer]forming [employer] [address] Manager Name Role Phone Kraig BLACK, Steven Primary Care Physician Wolf montanez Encounter [facility] [place] Date(s): 01/17/21 - 02/21/[address] [id number] Attending Physician: Not on Staff, Attending MD Referring Physician: Thea Vega MD Allergies, Adverse Reactions, Alerts Substance Reaction Severity Status NKA Active Medications aspirin 325 mg oral tablet 325, mg, 1, tablet, By Mouth, Daily in AM, 0, 0, 04/09/08 16:09:38, Print JOSE Number, [id number], ConstantIndicator Start Date: 04/09/08 Status: Ordered Depakote 500 mg oral enteric coated tablet 500, mg, 1, tablet, By Mouth, Daily, 0, 04/09/08 16:10:14, Print JOSE Number, [id number], ConstantIndicator Start Date: 04/09/08 Status: Ordered Insulin NPH See Instructions, 0, 0, 04/09/08 16:11:41, 40 units bid, Print JOSE Number, Constant Indicator Start Date: 04/09/08 Status: Ordered lisinopril 5 mg oral tablet 5, mg, 1, tablet, By Mouth, Daily, 0, 04/09/08 16:09:24, Print JOSE Number, [id number], Constant Indicator Start Date: 04/09/08 Status: Ordered Lopressor 50 mg oral tablet 50, mg, 1, tablet, By Mouth, 2 times a day, 0, 0, 04/09/08 16:07:53, Print JOSE Number, [id number], Constant Indicator Start Date: 04/09/08 Status: Ordered Lyrica 150 mg oral capsule 150, mg, 1, capsule, By Mouth, 2 times a day, 0, 04/09/08 16:11:23, Print JOSE Number, [id number],Constant Indicator Start Date: 04/09/08 Status: Ordered Neurontin 600 mg oral tablet 600, mg, 1, tablet, By Mouth, 3 times a day, 0, 04/09/08 16:10:48, Print JOSE Number, [id number], Constant Indicator Start Date: 04/09/08 Status: Ordered Ventolin 90 mcg/inh inhalation aerosol Scheduled / PRN, 0, 0, 04/09/08 16:13:14, as needed, Print JOSE Number Start Date: 04/09/08 Status: Ordered Zocor 40 mg oral tablet 40, mg, 1, tablet, By Mouth, Daily at bedtime, 0, 04/09/08 16:08:56, Print JOSE Number, [id number], Constant Indicator Start Date: 04/09/08 Status: Ordered
--- OUTSIDE RECORDS SUMMARY | 2023-05-05 09:44 | XMS_ITS | Continuity of Care Document ---
Author Name Unknown Organization [facility] Address [address] [place] [id number]- Care Team Providers Care Assisted Living Coordinator Name Role Phone Kraig BLACK, Steven Primary Care Physician Wolf montanez [id number] Date(s): 01/23/[facility] - 03/14/[address] [id number] Attending Physician: Not on Staff, Attending [...] Daily, 0, 04/09/08 16:10:14, Print JOSE Number, [id number], ConstantIndicator Start Date: 04/09/08 Status: Ordered Insulin NPH See Instructions, 0, 0, 04/09/08 16:11:41, 40 units bid, Print JOSE Number, Constant Indicator Start Date: 04/09/08 Status: Ordered lisinopril 5 mg oral tablet 5, mg, 1, tablet, By Mouth, Daily, 0, 04/09/08 16:09:24, Print JOSE Number, [id number], Constant Indicator Start Date: 04/09/08 Status: Ordered Lopressor 50 mg oral tablet 50, mg, 1, tablet, By Mouth, 2 times a day, 0, 0, 04/09/08 16:07:53, Print JOSE Number, [id number], Constant Indicator Start Date: 04/09/08 Status: Ordered Lyrica 150 mg oral capsule 150, mg, 1, capsule, By Mouth, 2 times a day, 0, 04/09/08 16:11:23, Print JOSE Number, [id number],Constant Indicator Start Date: 04/09/08 Status: Ordered Neurontin [...]
--- OUTSIDE RECORDS SUMMARY | 2023-05-05 09:44 | XMS_ITS | Continuity of Care Document ---
Author Name Unknown Organization [facility] Address [address] [place] [id number]- Care Team Providers Care Recovery Engineer Name Role Phone Kraig BLACK, Steven Primary Care Physician Wolf montanez Encounter [facility] Date(s): 01/21/21 - 02/20/[address] [id number] Allergies, Adverse Reactions, Alerts Substance Reaction Severity Status NKA Active Medications aspirin 325 mg oral tablet 325, mg, 1, tablet, By Mouth, Daily in AM, 0, 0, 04/09/08 16:09:38, Print JOSE Number, [id number], ConstantIndicator Start Date: 04/09/08 Status: Ordered Depakote 500 mg oral enteric coated tablet 500, mg, 1, tablet, By Mouth, Daily, 0, 04/09/08 16:10:14, Print JOSE Number, [id number], ConstantIndicator Start Date: 04/09/08 Status: Ordered Insulin NPH See Instructions, 0, 0, 04/09/08 16:11:41, 40 units bid, Print JOSE Number, Constant Indicator Start Date: 04/09/08 Status: Ordered lisinopril 5 mg oral tablet 5, mg, 1, tablet, By Mouth, Daily, 0, 04/09/08 16:09:24, Print JOSE Number, [id number], Constant Indicator Start Date: 04/09/08 Status: Ordered Lopressor 50 mg oral tablet 50, mg, 1, tablet, By Mouth, 2 times a day, 0, 0, 04/09/08 16:07:53, Print JOSE Number, [id number], Constant Indicator Start Date: 04/09/08 Status: Ordered Lyrica 150 mg oral capsule 150, mg, 1, capsule, By Mouth, 2 times a day, 0, 04/09/08 16:11:23, Print JOSE Number, [id number],Constant Indicator Start Date: 04/09/08 Status: Ordered Neurontin [...]
--- OUTSIDE RECORDS SUMMARY | 2023-05-05 09:44 | XMS_ITS | Continuity of Care Document ---
Author Name Unknown Organization [facility] Address [address] [place] [id number]- Care Team Providers Care Coater Name Role Phone Kraig BLACK, Steven Primary Care Physician Wolf montanez Encounter [facility] Date(s): 02/12/21 - 03/14/[address] [id number] Attending Physician: Rubén Al Admitting Physician: AdmRubén oakley Referring Physician: AdmtrRubén Allergies, Adverse Reactions, Alerts Substance Reaction Severity Status NKA Active Medications aspirin 325 mg oral tablet 325, mg, 1, tablet, By Mouth, Daily in AM, 0, 0, 04/09/08 16:09:38, Print JOSE Number, [id number], ConstantIndicator Start Date: 04/09/08 Status: Ordered Depakote 500 mg oral enteric coated tablet 500, mg, 1, tablet, By Mouth, Daily, 0, 04/09/08 16:10:14, Print JOSE Number, [id number], ConstantIndicator Start Date: 04/09/08 Status: Ordered Insulin NPH See Instructions, 0, 0, 04/09/08 16:11:41, 40 units bid, Print JOSE Number, Constant Indicator Start Date: 04/09/08 Status: Ordered lisinopril 5 mg oral tablet 5, mg, 1, tablet, By Mouth, Daily, 0, 04/09/08 16:09:24, Print JOSE Number, [id number], Constant Indicator Start Date: 04/09/08 Status: Ordered Lopressor 50 mg oral tablet 50, mg, 1, tablet, By Mouth, 2 times a day, 0, 0, 04/09/08 16:07:53, Print JOSE Number, [id number], Constant Indicator Start Date: 04/09/08 Status: Ordered Lyrica 150 mg oral capsule 150, mg, 1, capsule, By Mouth, 2 times a day, 0, 04/09/08 16:11:23, Print JOSE Number, [id number],Constant Indicator Start Date: 04/09/08 Status: Ordered Neurontin [...]
--- NOTE | 2023-05-05 09:47 | ED_ITS ---
HPI - Nausea/Vomiting/Diarrhea General Chief complaint: Nausea/Vomiting/Diarrhea Stated complaint: From SNF, vomiting since last night per EMS Time Seen by Provider: 05/05/23 08:55 Source: patient Mode of arrival: EMS History of Present Illness HPI Narrative: 68-year-old female who is brought in from [facility] by EMS for, as p er the triage note, questionable GI bleed, I spoke with patient who describes nausea and vomiting for 2 days now without associated fever or chills and she reports she has continued to pass flatus denies any urinary symptoms but is having abdominal discomfort. Related Data Home Medications Medication Instructions Recorded Confirmed atorvastatin 20 mg tablet 1 tab PO BEDTIME 01/16/21 05/05/23 bisacodyl 10 mg rectal suppository 10 mg NE DAILY PRN Constipation 01/16/21 05/05/23 duloxetine 20 mg capsule,delayed 1 cap PO DAILY 01/16/21 05/05/23 release duloxetine 60 mg capsule,delayed 1 cap PO DAILY 01/16/21 05/05/23 release furosemide 20 mg tablet 20 mg PO DAILY 01/16/21 05/05/23 insulin aspart U-100 100 unit/mL 5 unit subcut TIDAC 01/16/21 05/05/23 subcutaneous solution (Novolog U-100 Insulin aspart) insulin aspart U-100 100 unit/mL See Protocol subcut TIDWM 01/16/21 05/05/23 subcutaneous solution (Novolog U-100 Insulin aspart) magnesium oxide 400 mg PO BID 01/16/21 05/05/23 metoprolol succinate 50 mg 1 tab PO DAILY 01/16/21 05/05/23 tablet,extended release 24 hr polyethylene glycol 3350 17 17 g PO DAILY PRN Constipation 01/16/21 05/05/23 gram/dose oral powder (Miralax) pregabalin 75 mg capsule 1 cap PO BID 01/16/21 05/05/23 trazodone 50 mg tablet 25 mg PO BID 01/16/21 05/05/23 insulin detemir U-100 100 unit/mL 98 unit subcut BID 03/10/21 05/05/23 subcutaneous solution (Levemir U-100 Insulin) lorazepam 0.5 mg tablet 0.5 mg PO BEDTIME 03/10/21 05/05/23 lorazepam 0.5 mg tablet (Ativan) 0.5 mg PO DAILY PRN Anxiety 03/10/21 05/05/23 acetaminophen 500 mg tablet 1,000 mg PO Q8H PRN Pain 05/05/23 05/05/23 albuterol sulfate 0.63 mg/3 mL 0.63 mg inhalation Q4H PRN 05/05/23 05/05/23 solution for nebulization Congestion aluminum-mag hydroxide-simethicone 30 ml PO Q6H PRN Heartburn 05/05/23 05/05/23 200 mg-200 mg-20 mg/5 mL oral susp (Yeimy-Lanta) dextrose 40 % oral gel (Glucose 10 g PO Q10M PRN Hypoglycemia 05/05/23 05/05/23 Gel) dulaglutide 0.75 mg/0.5 mL 0.75 mg subcut FR 05/05/23 05/05/23 subcutaneous pen injector (Trulicity) glucagon HCl 1 mg solution for 1 mg subcut Q20M PRN Hypoglycemia 05/05/23 0 05/05/23 injection (Glucagon (HCl) Emergency Kit) guaifenesin 400 mg tablet 400 mg PO Q4H PRN Cough 05/05/23 05/05/23 hydrocortisone 1 % topical cream 1 appl topical TID PRN Itching 05/05/23 05/05/23 ketoconazole 2 % shampoo 1 appl topical FR 05/05/23 05/05/23 medroxyprogesterone 10 mg tablet 20 mg PO BID 05/05/23 05/05/23 menthol 5 % topical patch (Icy Hot 1 patch topical BID 05/05/23 05/05/23 (menthol)) methyl salicylate 15 %-menthol 10 1 appl topical TID PRN Pain 05/05/23 05/05/23 % topical cream miconazole nitrate 2 % topical 1 appl topical BID 05/05/23 05/05/23 powder morphine 15 mg immediate release 15 mg PO Q4H PRN pain 05/05/23 05/05/23 tablet ondansetron HCl 4 mg tablet 4 mg PO Q8H PRN Nausea 05/05/23 05/05/23 sumatriptan succinate 25 mg tablet 25 mg PO DAILY MRX1 PRN Migraine 05/05/23 05/05/23 Headache trazodone 50 mg tablet 50 mg PO BEDTIME 05/05/23 05/05/23 Allergies Allergy/AdvReac Type Severity Reaction Status Date / Time No Known Allergies Allergy Verified 02/25/21 11:59 [No Known Allergies*] Review of Systems Review of Systems: Pertinent positives and negatives as stated in [facility] Past Medical History Source: nursing notes reviewed Medical History Anxiety CAD (coronary artery disease) Chronic respiratory disease COVID-19 COVID-19 vaccine administered Depression Diabetes Foul smelling vaginal discharge HLD (hyperlipidemia) HTN (hypertension) Low back pain Osteoarthritis Personality disorder Thickened endometrium Venous (peripheral) insufficiency Surgical History Hx of heart artery stent Social History Social History Housing: Correction Are you a primary nonfarm animal caretaker to a significant other at home: No Do you presently have visiting nurse or other home services: Yes (resides at [facility]) Alcohol intake: never Patient Tobacco Use Status: Tobacco use Unknown Smoked in Last 30 Days: No Use of substances other than those prescribed or required for medical reasons: No Advance Directives: Yes Advance Directives on File: Yes Advance Directives Date on File: 01/16/21 service: No Current occupational status: disabled Physical Exam Vital Signs: Vital Signs: Last Vital Signs Temp 97.6 F 05/05/23 14:32 Pulse 136 H 05/05/23 14:32 Resp 21 H 05/05/23 14:32 BP 150/88 H 05/05/23 14:32 Pulse Ox 97 05/05/23 14:32 O2 Del Method Nasal Cannula 05/05/23 14:32 O2 Flow Rate 4 05/05/23 14:32 Oxygen Flow Rate 4 05/05/23 09:31 BMI result Body Mass Index 40.1 VITAL SIGNS: Reviewed. GENERAL: Well developed, well nourished, in no acute distress. HEAD: Normocephalic/atraumatic EYES: PERRLA, EOMI EARS: Ext canals without abnormality NOSE: Nares patent bilateral OROPHARYNX: no oral lesions noted, posterior pharynx clear NECK: Supple, no adenopathy LUNGS: Good inspiratory effort, bibasilar rales noted, tachypnea is present. SpO2<95> CARDIOVASCULAR: Regular rate and rhythm without noted murmurs, no JVD mild bilateral edema ABDOMEN: Soft, diffuse abd discomfort, non-distended with bowel sounds. MUSCULOSKELETAL: No tenderness, deformities, or effusions noted on gross inspe ction. EXTREMITIES: No cyanosis, clubbing or edema. SKIN: Inspection of the skin reveals no rashes NEUROLOGIC: Alert and oriented x 4. Strength and sensation to light touch were grossly intact x 4. Medications Administered Discontinued Medications Generic Name Dose Route Start Last Admin Trade Name Freq PRN Reason Stop Dose Admin Acetaminophen 650 mg 05/05/23 09:59 05/05/23 10:13 Acetaminophen Supp 650 Mg Supp.Rect NE 05/05/23 10:00 650 mg ONCE ONE Administration Piperacillin Sod/Tazobactam 50 mls @ 100 mls/hr 05/05/23 09:55 05/05/23 11:55 Sod 3.375 gm/ Sodium Chloride IV 05/05/23 10:24 Infused ONCE ONE Infusion Sodium Chloride 500 mls @ 999 mls/hr 05/05/23 10:00 05/05/23 11:55 Ns IV 05/05/23 10:30 Infused .Q31M SUSAN Infusion Sodium Chloride 500 mls @ 500 mls/hr 05/05/23 12:00 05/05/23 11:53 Ns IV 05/05/23 12:59 500 mls/hr .Q1H SUSAN Administration Iohexol 85 ml 05/05/23 11:31 05/05/23 11:31 Iohexol 350 Mg/Ml 100 Ml Infus..Btl IV 05/05/23 11:32 85 ml ONCE ONE Administration Metoprolol Succinate 50 mg 05/05/23 14:00 05/05/23 14:08 Metoprolol Succinate Er 50 Mg Tab.Er.24h PO 05/05/23 14:01 Not Given ONCE ONE Protocol Medical Decision Making Medical Decision Making [facility] Narrative: 929: 68-year-old female with history and clinical presentation, DDX: Diverticulitis, SBO, not super clear on GI bleed, UTI, there is also likely a component of CHF. INTERVENTION: Tylenol, 500 cc normal saline 1000: I reviewed all investigations and hematologic indices significant for underlying infection in combination with clinical findings and history provided by the patient. There is a significant leukocytosis with left shift without thrombocytopenia and no evidence of anemia. Coagulation studies are within normal limits. Chemistry indices are negative for potassium derangements but there is a noted elevation in calcium levels of unclear significance, otherwise patient is hyperglycemic without evidence DKA or HHS. There is no HERNESTO, lactic acid is 2.4 and patient is otherwise not hypotensive but there are liver enzyme derangements concerning for possible cholecystitis but doubt choledocholithiasis as alkaline phosphatase levels are within normal limits and again this argues against a Mirrizzi version of cholecystitis as well as the elevation of transaminases is very subtle and no evidence of alkaline phosphatase elevation. Urinalysis is significant for evidence of hematuria but no UTI, patient received antibiotics and does not qualify for sepsis fluids at this time. I did review the CT scan and my prelim read is that there is cholelithiasis and evidence to suggest mild gallbladder wall thickening with distension that is consistent with patient's history of nausea and vomiting, in addition there is some noted right perinephric stranding. On re-evaluation patient is feeling mildly improved, no longer vomiting. My interpretation is patient may have either a pyelonephritis or possible cholecystitis. All results discussed with patient at bedside. 1155: US ordered for better GB characterization. 1345: I discussed case with general surgery who recommends IR drainage due to patient's multiple medical comorbidities. 1400: I discussed with the IR team who is in agreement for IR drainage. 1415: Ultrasound read appears to be interpreted as cholelithiasis without any gallbladder disease. I disagree with this. Surgical PA coming down to evaluate the patient. 1430: I discussed case with the General surgery PA Alda who recommends continued antibiotics and no drain at this time, patient will be re-evaluated in the morning. 1450: I updated the hospitalist who accepts admission. Differential Diagnosis Differential Diagnoses: The differential diagnosis associated with the presentation includes Please see the discussion Admission/Observation Consideration of admission/observation: Escalation of care including admission/observation considered Please see the discussion above Consult Healthcare Provider Management of the patient was discussed with: Hospitalist and Flat Lock Machine Operator Please see the discussion above Lab Data MDM Lab Attestation statement: I reviewed the patient's lab results. Please see the discussion above 05/05/23 09:43 05/05/23 09:43 Labs: Lab Results 05/05/23 05/05/23 05/05/23 Range/Units 09:43 09:43 09:43 WBC 17.5 H (4.8-10.8) X10*3/uL RBC 5.74 H (4.20-5.50) X10*6/uL Hgb 15.9 D (12.0-16.0) g/dl Hct 47.1 H (37.0-47.0) % MCV 82.1 (80.0-98.0) fL MCH 27.7 (27.0-33.0) pg MCHC 33.8 (31.0-35.0) g/dl RDW 12.4 (11.0-16.0) % Plt Count 256 D (160-400) X10*3/uL MPV 10.1 (9.4-12.3) fL Immature Gran % (Auto) 0.7 H (0.0-0.4) % Neut % (Auto) 88.6 H (45-73) % Lymph % (Auto) 4.2 L (20-40) % [place] % (Auto) 6.4 (2-11) % Eos % (Auto) 0.0 (0-4) % Baso % (Auto) 0.1 (0-2) % Lymph # (Auto) 0.7 L (1.2-4.9) X10*3/uL [place] # (Auto) 1.1 (0.1-1.2) X10*3/uL Eos # (Auto) 0.0 (0.0-0.4) X10*3/uL Baso # (Auto) 0.0 (0.0-0.2) X10*3/uL Abs Immat Gran (auto) 0.12 H (0.00-0.03) X10*3/uL Absolute Neuts (auto) 15.5 H (2.0-8.3) x10*3/uL Absolute Nucleated RBC 0.000 (0.0-0.012) X10*3/uL Nucleated RBC % (auto) 0.0 (0.0-0.2) /100WBC PT 13.6 H (11.1-13.3) SEC INR 1.1 (0.9-1.1) Sodium 135 (135-145) mmol/L Potassium 4.0 (3.3-5.1) mmol/L Chloride 95 L (96-108) mmol/L Carbon Dioxide 27 (22-29) mmol/L Anion Gap 17 (12-20) BUN 12 (9-16) mg/dL Creatinine 0.96 (0.5-1.4) mg/dL Estim Creat Clear Calc 75.2 Estimated GFR 58 Random Glucose 482 H* (60-115) mg/dL Lactic Acid (0.5-2.0) mmol/L Lactic Acid F/U @ 2Hr (0.5-2.0) mmol/L Calcium 10.7 H D (8.4-10.2) mg/dL Total Bilirubin 1.3 H (0.0-1.0) mg/dL AST 63 H (5-31) U/L ALT 95 H (0-31) U/L Alkaline Phosphatase 96 (39-117) U/L Total Protein 7.1 (6.5-8.0) g/dL Albumin 3.6 (3.5-5.0) g/dL Urine Color Urine Appearance Urine pH (5.0-9.0) Ur Specific [place] (1.005-1.025) Urine Protein (Neg-Trace) mg/dL Urine Glucose (UA) (Negative) mg/dL Urine Ketones (Negative) mg/dL Urine Blood (Negative) Urine Nitrite (Negative) Ur Leukocyte Esterase (Negative) Urine RBC (0-2) /HPF Urine WBC (0-5) /HPF Ur Squamous Epith Cells (0-2) /HPF Urine Bacteria (None Seen) Hyaline Casts (0-2) /LPF 05/05/23 05/05/23 05/05/23 Range/Units 09:43 09:57 12:26 WBC (4.8-10.8) X10*3/uL RBC (4.20-5.50) X10*6/uL Hgb (12.0-16.0) g/dl Hct (37.0-47.0) % MCV (80.0-98.0) fL MCH (27.0-33.0) pg MCHC (31.0-35.0) g/dl RDW (11.0-16.0) % Plt Count (160-400) X10*3/uL MPV (9.4-12.3) fL Immature Gran % (Auto) (0.0-0.4) % Neut % (Auto) (45-73) % Lymph % (Auto) (20-40) % [place] % (Auto) (2-11) % Eos % (Auto) (0-4) % Baso % (Auto) (0-2) % Lymph # (Auto) (1.2-4.9) X10*3/uL [place] # (Auto) (0.1-1.2) X10*3/uL Eos # (Auto) (0.0-0.4) X10*3/uL Baso # (Auto) (0.0-0.2) X10*3/uL Abs Immat Gran (auto) (0.00-0.03) X10*3/uL Absolute Neuts (auto) (2.0-8.3) x10*3/uL Absolute Nucleated RBC (0.0-0.012) X10*3/uL Nucleated RBC % (auto) (0.0-0.2) /100WBC PT (11.1-13.3) SEC INR (0.9-1.1) Sodium (135-145) mmol/L Potassium (3.3-5.1) mmol/L Chloride (96-108) mmol/L Carbon Dioxide (22-29) mmol/L Anion Gap (12-20) BUN (9-16) mg/dL Creatinine (0.5-1.4) mg/dL Estim Creat Clear Calc Estimated GFR Random Glucose (60-115) mg/dL Lactic Acid 2.4 H* (0.5-2.0) mmol/L Lactic Acid F/U @ 2Hr 2.7 H* (0.5-2.0) mmol/L Calcium (8.4-10.2) mg/dL Total Bilirubin (0.0-1.0) mg/dL AST (5-31) U/L ALT (0-31) U/L Alkaline Phosphatase (39-117) U/L Total Protein (6.5-8.0) g/dL Albumin (3.5-5.0) g/dL Urine Color Yellow Urine Appearance Clear Urine pH 6.5 (5.0-9.0) Ur Specific [place] >= 1.030 H (1.005-1.025) Urine Protein 300 (3+) H (Neg-Trace) mg/dL Urine Glucose (UA) >=1000 H (Negative) mg/dL Urine Ketones 80 (Negative) mg/dL Urine Blood Moderate (2+) H (Negative) Urine Nitrite Negative (Negative) Ur Leukocyte Esterase Negative (Negative) Urine RBC 6-10 H (0-2) /HPF Urine WBC 0-5 (0-5) /HPF Ur Squamous Epith Cells 0-2 (0-2) /HPF Urine Bacteria None Seen (None Seen) Hyaline Casts 0-2 (0-2) /LPF Independent Interpretation I performed an independent interpretation of an: EKG Interpretation: Sinus tachycardia, HR-114, no STEMI, NE/QRS/QTC are within normal limits. Radiology Impression Radiologist Impression: Please see the discussion above External Record Review External record reviewed: Outpatient record and Prior outpatient labs Chronic Conditions Patient?s care impacted by: Diabetes and Hypertension Critical Care Time Critical Care Time Critical Care Time: Yes Total Critical Care Time: 45 Attestation: I personally attest to this time spent taking care of the patient. Discharge Plan Discharge Clinical Impression: Acute cholecystitis, Sepsis Patient Disposition: Admitted As Inpatient
[2023-05-05 09:49] LABS: MANUAL DIFF FLAG NO
--- NOTE | 2023-05-05 09:49 | ECG_ITS ---
Test Reason : SPESIS WORK UP Blood Pressure : / mmHG Vent. Rate : 114 BPM Atrial Rate : 114 BPM P-R Int : 168 ms QRS Dur : 096 ms QT Int : 344 ms P-R-T Axes : 085 019 079 degrees QTc Int : 474 ms Sinus tachycardia Inferior infarct , age undetermined Abnormal ECG When compared with ECG of 27-NOV-2021 15:34, Inferior infarct is now Present Referred By: Freida Chavarria Electronically Signed By:Blanco Diaz
[2023-05-05 09:51] LABS: Basophils Percent Auto 0.1 % (0-2); Hematocrit 47.1 % (37.0-47.0); Hemoglobin 15.9 g/dl (12.0-16.0); Imm Gran Abs Auto 0.12 X10*3/uL (0.00-0.03); Imm Gran Pct Auto 0.7 % (0.0-0.4); Lymphocytes Absolute Auto 0.7 X10*3/uL (1.2-4.9); Lymphocytes Percent Auto 4.2 % (20-40); Mean Corpuscular HGB Conc 33.8 g/dl (31.0-35.0); Mean Corpuscular Hemoglobin 27.7 pg (27.0-33.0); Mean Corpuscular Volume 82.1 fL (80.0-98.0); Mean Platelet Volume 10.1 fL (9.4-12.3); Monocytes Absolute Auto 1.1 X10*3/uL (0.1-1.2); Monocytes Percent Auto 6.4 % (2-11); Neutrophils Absolute Auto 15.5 x10*3/uL (2.0-8.3); Neutrophils Percent Auto 88.6 % (45-73); Platelet Count 256 X10*3/uL (160-400); Red Blood Count 5.74 X10*6/uL (4.20-5.50); Red Cell Distribution Width 12.4 % (11.0-16.0); White Blood Count 17.5 X10*3/uL (4.8-10.8)
[2023-05-05 09:56] LABS: INTERNATIONAL NORM RATIO 1.1 (0.9-1.1); Prothrombin Time 13.6 SEC (11.1-13.3)
[2023-05-05] MEDS: Piperacillin Sodium/Tazobactam 3.375 GM in 0.9 % Sodium Chloride 50 ML IV ×2 (10:09→19:03)
[2023-05-05 10:11] LABS: Appearance Urine Clear; Color Urine Yellow; Glucose Urine UA >=1000 mg/dL (Negative); Leukocyte Esterase Urine Negative (Negative); Nitrite Urine Negative (Negative); PH 6.5 (5.0-9.0); Specific Gravity - Urine >= 1.030 (1.005-1.025); UMIC TRIGGER UACC YES; Urine Blood Moderate (2+) (Negative); Urine Ketones 80 mg/dL (Negative); Urine Protein 300 (3+) mg/dL (Neg-Trace)
[2023-05-05] MEDS: 0.9 % Sodium Chloride 500 ML 999 ML IV (10:11)
[2023-05-05] MEDS: Acetaminophen Supp 650 MG SUPP.RECT PR (10:13)
[2023-05-05 10:24] LABS: Bacteria Urine None Seen (None Seen); Hyaline Casts Urine 0-2 /LPF (0-2); Squamous Epithelial Cell Urine 0-2 /HPF (0-2); WBC Urine 0-5 /HPF (0-5)
[2023-05-05 10:28] LABS: Lactic Acid 2.4 mmol/L (0.5-2.0)
[2023-05-05 10:43] LABS: Alanine Aminotransferase 95 U/L (0-31); Albumin Level 3.6 g/dL (3.5-5.0); Alkaline Phosphatase 96 U/L (39-117); Anion Gap 17 (12-20); Aspartate Amino Transferase 63 U/L (5-31); Bilirubin Total 1.3 mg/dL (0.0-1.0); Blood Urea Nitrogen 12 mg/dL (9-16); Calcium 10.7 mg/dL (8.4-10.2); Carbon Dioxide 27 mmol/L (22-29); Chloride 95 mmol/L (96-108); Creatinine Clr Calc Pharmacy 75.2; Estimated Glomerular Filt Rate 58; Glucose Random 482 mg/dL (60-115); Sodium 135 mmol/L (135-145); Total Protein 7.1 g/dL (6.5-8.0)
[2023-05-05] MEDS: iohexoL 350 MG/ML 100 ML INFUS..BTL 85 ML IV (11:31)
[2023-05-05 11:48] LABS: Reflex Lactate? Lactic Acid Added
[2023-05-05] MEDS: 0.9 % Sodium Chloride 500 ML IV (11:53)
--- NOTE | 2023-05-05 12:01 | PC.NURSE ---
Patient was cold called me over gave her 2 blankets. Looks like she has fungal rash in neck folds, abdominal folds look good, [id number] Dr. Chavarria notified ordered another 500cc bolus. re check rectal temp-100.2.
--- NOTE | 2023-05-05 12:36 | PC.NURSE ---
Ultrasound with patient now.
[2023-05-05 12:52] LABS: ~Lactic Acid-LAB USE ONLY 2.7 mmol/L (0.5-2.0)
--- NOTE | 2023-05-05 13:43 | PHA.MEDREC ---
Pharmacy Consult ? Medication Reconciliation Pharmacy has completed the medication reconciliation. Patient with list from [facility]
[2023-05-05 14:31] LABS: Reflex Lactate? 2 Y
--- NOTE | 2023-05-05 14:51 | PM.CNGS ---
History of Present Illness Consult details Consult date: 05/05/23 Reason for consult: gallstones (acute cholecystitis) Requesting physician: Freida Chavarria Narrative: 68 year old female with extensive PMH significant for CAD s/p stenting, diabetes mellitus, hyperlipidemia, hypertension, on home oxygen who presents with nausea and vomiting for two days. She reports no provoking factors. She has been able to keep down only fatoumata judy. She denies associated abdominal pain. She has reports last BM was yesterday and was normal. She denies any prior abdominal surgery. Due to the persistent vomiting she was brought to the ED where she was febrile and tachycardic. Work up included CBC, BMP and LFTs which were significant for a leukocytosis of 17.5, a lactic acidosis and elevated liver enzymes with bili of 1.3, AST/ALT 63/95. CT scan abd/pelvis and ABD US showed a distended gallbladder with gallstones, gallbladder wall thickening and a distended stomach. She feels improved now and denies further nausea. She continues to deny any abdominal pain. Review of Systems Constitutional: Constitutional: Denies chills and Reports fever(s) ENT: Denies dizziness Cardiovascular: Cardiovascular: Denies chest pain and Denies dyspnea Respiratory: Respiratory: Denies dyspnea Gastrointestinal: Gastrointestinal: Reports as per HPI Genitourinary: Genitourinary: Denies dysuria Musculoskeletal: Musculoskeletal: Denies numbness Integumentary/Breasts: Skin/Breast: Denies rash and Denies jaundice Neurologic: Denies dizziness and Denies numbness PMFSH Past Medical History Medical History Anxiety CAD (coronary artery disease) Chronic respiratory disease COVID-19 COVID-19 vaccine administered Depression Diabetes Foul smelling vaginal discharge HLD (hyperlipidemia) HTN (hypertension) Low back pain Osteoarthritis Personality disorder Thickened endometrium Venous (peripheral) insufficiency Surgical History Surgical History Hx of heart artery stent Social History Social History Housing: Residential Are you a primary childcare director to a significant other at home: No Do you presently have visiting nurse or other home services: Yes (resides at [facility]) Alcohol intake: never Patient Tobacco Use Status: Tobacco use Unknown Smoked in Last 30 Days: No Use of substances other than those prescribed or required for medical reasons: No Advance Directives: Yes Advance Directives on File: Yes Advance Directives Date on File: 01/16/21 service: No Current occupational status: disabled Meds Allergies Allergy/AdvReac Type Severity Reaction Status Date / Time No Known Allergies Allergy Verified 02/25/21 11:59 [No Known Allergies*] Active Medications: Current Medications Pharmacy Consult (Consult Rx Perform Med Rec) 1 each MISCELLANE ONCE PRN PRN Reason: Consult order Home Medications Medication Instructions Recorded Confirmed Last Taken Type atorvastatin 20 mg tablet 1 tab PO BEDTIME 01/16/21 05/05/23 Unknown History bisacodyl 10 mg rectal suppository 10 mg [place] DAILY PRN Constipation 01/16/21 05/05/23 Unknown History duloxetine 20 mg capsule,delayed 1 cap PO DAILY 01/16/21 05/05/23 Unknown History release duloxetine 60 mg capsule,delayed 1 cap PO DAILY 01/16/21 05/05/23 Unknown History release furosemide 20 mg tablet 20 mg PO DAILY 01/16/21 05/05/23 Unknown History insulin aspart U-100 100 unit/mL 5 unit subcut TIDAC 01/16/21 05/05/23 Unknown History subcutaneous solution (Novolog U-100 Insulin aspart) insulin aspart U-100 100 unit/mL See Protocol subcut TIDWM 01/16/21 05/05/23 Unknown History subcutaneous solution (Novolog U-100 Insulin aspart) magnesium oxide 400 mg PO BID 01/16/21 05/05/23 Unknown History metoprolol succinate 50 mg 1 tab PO DAILY 01/16/21 05/05/23 Unknown History tablet,extended release 24 hr polyethylene glycol 3350 17 17 g PO DAILY PRN Constipation 01/16/21 05/05/23 Unknown History gram/dose oral powder (Miralax) pregabalin 75 mg capsule 1 cap PO BID 01/16/21 05/05/23 Unknown History trazodone 50 mg tablet 25 mg PO BID 01/16/21 05/05/23 Unknown History insulin detemir U-100 100 unit/mL 98 unit subcut BID 03/10/21 05/05/23 Unknown History subcutaneous solution (Levemir U-100 Insulin) lorazepam 0.5 mg tablet 0.5 mg PO BEDTIME 03/10/21 05/05/23 Unknown History lorazepam 0.5 mg tablet (Ativan) 0.5 mg PO DAILY PRN Anxiety 03/10/21 05/05/23 Unknown History acetaminophen 500 mg tablet 1,000 mg PO Q8H PRN Pain 05/05/23 05/05/23 Unknown History albuterol sulfate 0.63 mg/3 mL 0.63 mg inhalation Q4H PRN 05/05/23 05/05/23 Unknown History solution for nebulization Congestion aluminum-mag hydroxide-simethicone 30 ml PO Q6H PRN Heartburn 05/05/23 05/05/23 Unknown History 200 mg-200 mg-20 mg/5 mL oral susp ([place]) dextrose 40 % oral gel (Glucose 10 g PO Q10M PRN Hypoglycemia 05/05/23 05/05/23 Unknown History Gel) dulaglutide 0.75 mg/0.5 mL 0.75 mg subcut FR 05/05/23 05/05/23 Unknown History subcutaneous pen injector (Trulicity) glucagon HCl 1 mg solution for 1 mg subcut Q20M PRN Hypoglycemia 05/05/23 05/05/23 Unknown History injection (Glucagon (HCl) Emergency Kit) guaifenesin 400 mg tablet 400 mg PO Q4H PRN Cough 05/05/23 05/05/23 Unknown History hydrocortisone 1 % topical cream 1 appl topical TID PRN Itching 05/05/23 05/05/23 Unknown History ketoconazole 2 % shampoo 1 appl topical FR 05/05/23 05/05/23 Unknown History medroxyprogesterone 10 mg tablet 20 mg PO BID 05/05/23 05/05/23 Unknown History menthol 5 % topical patch (Icy Hot 1 patch topical BID 05/05/23 05/05/23 Unknown History (menthol)) methyl salicylate 15 %-menthol 10 1 appl topical TID PRN Pain 05/05/23 05/05/23 Unknown History % topical cream miconazole nitrate 2 % topical 1 appl topical BID 05/05/23 05/05/23 Unknown History powder morphine 15 mg immediate release 15 mg PO Q4H PRN pain 05/05/23 05/05/23 Unknown History tablet ondansetron HCl 4 mg tablet 4 mg PO Q8H PRN Nausea 05/05/23 05/05/23 Unknown History sumatriptan succinate 25 mg tablet 25 mg PO DAILY MRX1 PRN Migraine 05/05/23 05/05/23 Unknown History Headache trazodone 50 mg tablet 50 mg PO BEDTIME 05/05/23 05/05/23 Unknown History Physical Exam Vital Signs: Vital Signs: Last Vital Signs Temp 97.6 F 05/05/23 14:32 Pulse 136 H 05/05/23 14:32 Resp 21 H 05/05/23 14:32 BP 150/88 H 05/05/23 14:32 Pulse Ox 97 05/05/23 14:32 O2 Del Method Nasal Cannula 05/05/23 14:32 O2 Flow Rate 4 05/05/23 14:32 Oxygen Flow Rate 4 05/05/23 09:31 BMI result Body Mass Index 40.1 Const: General: comfortable, no acute distress and alert Orientation/consciousness: patient oriented x3 Resp: Effort & Inspection: normal respiratory effort Auscultation: clear to auscultation bilaterally GI: Inspection: Yes distended (upper abdomen) Palpation (GI): Soft to palpation, Tenderness to palpation present (GI) in the RUQ (very mild); Pena's sign negative, no guarding and not rigid Percussion: Yes tympanic to percussion (upper abdomen) Skin: General skin exam: no rashes or lesions noted and no jaundice Neuro: General: patient oriented x3 and moves all extremities Results Labs 05/05/23 09:43 05/05/23 09:43 Labs: Abnormal lab results 05/05/23 05/05/23 05/05/23 Range/Units 09:43 09:43 09:43 WBC 17.5 H (4.8-10.8) X10*3/uL RBC 5.74 H (4.20-5.50) X10*6/uL Hct 47.1 H (37.0-47.0) % Immature Gran % (Auto) 0.7 H (0.0-0.4) % Neut % (Auto) 88.6 H (45-73) % Lymph % (Auto) 4.2 L (20-40) % Lymph # (Auto) 0.7 L (1.2-4.9) X10*3/uL Abs Immat Gran (auto) 0.12 H (0.00-0.03) X10*3/uL Absolute Neuts (auto) 15.5 H (2.0-8.3) x10*3/uL PT 13.6 H (11.1-13.3) SEC Chloride 95 L (96-108) mmol/L Random Glucose 482 H* (60-115) mg/dL Lactic Acid (0.5-2.0) mmol/L Lactic Acid F/U @ 2Hr (0.5-2.0) mmol/L Calcium 10.7 H D (8.4-10.2) mg/dL Total Bilirubin 1.3 H (0.0-1.0) mg/dL AST 63 H (5-31) U/L ALT 95 H (0-31) U/L Ur Specific [place] (1.005-1.025) Urine Protein (Neg-Trace) mg/dL Urine Glucose (UA) (Negative) mg/dL Urine Blood (Negative) Urine RBC (0-2) /HPF 05/05/23 05/05/23 05/05/23 Range/Units 09:43 09:57 12:26 WBC (4.8-10.8) X10*3/uL RBC (4.20-5.50) X10*6/uL Hct (37.0-47.0) % Immature Gran % (Auto) (0.0-0.4) % Neut % (Auto) (45-73) % Lymph % (Auto) (20-40) % Lymph # (Auto) (1.2-4.9) X10*3/uL Abs Immat Gran (auto) (0.00-0.03) X10*3/uL Absolute Neuts (auto) (2.0-8.3) x10*3/uL PT (11.1-13.3) SEC Chloride (96-108) mmol/L Random Glucose (60-115) mg/dL Lactic Acid 2.4 H* (0.5-2.0) mmol/L Lactic Acid F/U @ 2Hr 2.7 H* (0.5-2.0) mmol/L Calcium (8.4-10.2) mg/dL Total Bilirubin (0.0-1.0) mg/dL AST (5-31) U/L ALT (0-31) U/L Ur Specific [place] >= 1.030 H (1.005-1.025) Urine Protein 300 (3+) H (Neg-Trace) mg/dL Urine Glucose (UA) >=1000 H (Negative) mg/dL Urine Blood Moderate (2+) H (Negative) Urine RBC 6-10 H (0-2) /HPF Short CBC 05/05/23 Range/Units 09:43 WBC 17.5 H (4.8-10.8) X10*3/uL Hgb 15.9 D (12.0-16.0) g/dl Hct 47.1 H (37.0-47.0) % Plt Count 256 D (160-400) X10*3/uL BMP 05/05/23 09:43 Sodium 135 Potassium 4.0 Chloride 95 L Carbon Dioxide 27 BUN 12 Creatinine 0.96 Calcium 10.7 H D Liver Function 05/05/23 Range/Units 09:43 Total Bilirubin 1.3 H (0.0-1.0) mg/dL AST 63 H (5-31) U/L ALT 95 H (0-31) U/L Alkaline Phosphatase 96 (39-117) U/L Albumin 3.6 (3.5-5.0) g/dL Urine 05/05/23 Range/Units 09:57 Urine Color Yellow Urine Appearance Clear Urine pH 6.5 (5.0-9.0) Ur Specific [place] >= 1.030 H (1.005-1.025) Urine Protein 300 (3+) H (Neg-Trace) mg/dL Urine Glucose (UA) >=1000 H (Negative) mg/dL All other labs normal. Imaging Abdomen CT scan report/results: report reviewed and image reviewed Assessment and Plan (1) Acute cholecystitis: Status: Acute Plan 68 year old female with multiple medical comorbidities who presented with nausea and vomiting for 2 days. She was found to febrile with a leukocytosis and had gallstones, mild wall thickening on imaging. She has been admitted to the medical service for further treatment. She does meet SIRS criteria with no other obvious source other than acute cholecystitis given her wall thickening but she is non toxic appearing and her abdominal exam is very benign. However this may just be due to her body habitus. Would recommend conservative measures for now with IV abx and IV hydration. She is likely very volume depleted contributing to the tachycardia and lactic acidosis. Will reassess in the morning for possible cholecystostomy tube if no improvement in clinical picture. Her stomach is also significantly distended, possibly secondary to gastroparesis and if she has continued nausea/vomiting would likely benefit from NGT. Will continue to follow. Discussed case with Dr. Smith and Dr. Bacon. Time Spent With Patient Time: Total time managing care of this patient today ____ minutes. Procedures Date of Service Date of Service: 05/05/23
[2023-05-05] MEDS: Metoprolol Tartrate 5 MG/5 ML VIAL IVPUSH (15:01)
--- NOTE | 2023-05-05 15:30 | PC.NURSE ---
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 no focal neuro deficits noted. situationally confused but calm, cooperative, makes clear/logical sense, and participating in care- consistent with provider's assessment. +o2 on 3L NC with no SOB at rest. some bruising to bilat arms and redness to neck area. round nontender abdomen. no N/V/D. denies chest pain/dizziness. PIV's x2 c/d/i.
[2023-05-05 15:31] LABS: Glucose, Whole Blood 465 mg/dL (60-115)
--- NOTE | 2023-05-05 16:06 | P.HPHOSP_ITS ---
History of Present Illness Date of Service: 05/05/23 Attending physician on admission: Mily Ruiz Chief Complaint: Nausea, vomiting Pt is a 68-year-old female with a PMH significant for?CAD s/p stents, insulin- dependent diabetes type 2, HTN, HLD, osteoarthritis, home O2, and mood disorder who presents to the ED from SNF with nausea and vomiting x2 days. Patient is alert and oriented though though not completely aware of her situation. She has been a resident at an SNF for the past 7 years, though she is unsure why she initially went there. Patient is nonambulatory at baseline. She states she has been nauseous and vomiting several times daily for the past 2-3 days. Denies any abdominal pain. Reports normally have 2-3 bowel movements per week with last movement a few days ago. Denies fever, chills. Complains of chronic back pain. Denies chest pain/pressure, palpitations. No shortness of breath. In the ED patient was febrile at 101.2, tachycardic up to 136, tachypneic up to 22, and hypertensive up to 179/94. Labs were significant for leukocytosis of 17.5, POC glucose of 465, lactic acid 2.4 with repeat 2.7, bilirubin elevated at 1.3, AST 63, ALT 95. Kidney function mildly elevated with creatinine 0.96. Electrolytes WNL. UA negative for UTI. CXR showed no acute cardiopulmonary process seen. CT?of abdomen and pelvis found gallstones with prominent fundal gallbladder folds and patchy stranding of pericholecystic fat small perihepatic ascites. Abdominal ultrasound found cholelithiasis without evidence of acute cholecystitis. EKG demonstrated sinus tachycardia [address] elevations depressions. Pt was treated with Zosyn, IVF, acetaminophen, m etoprolol 5 mg IV push and insulin. Pt will be admitted to the hospital treatment and further evaluation of sepsis in the setting of gastroparesis versus acute cholecystitis. Review of Systems Review of Systems: Nausea, vomiting times 2-3 days Denies abdominal pain No fever, chills Denies constipation No chest pain/pressure, palpitations Denies shortness of breath Yes all other systems are reviewed and are negative [facility] Medical History Anxiety CAD (coronary artery disease) Chronic respiratory disease COVID-19 COVID-19 vaccine administered Depression Diabetes Foul smelling vaginal discharge HLD (hyperlipidemia) HTN (hypertension) Low back pain Osteoarthritis Personality disorder Thickened endometrium Venous (peripheral) insufficiency Surgical History Hx of heart artery stent Social History Housing: Residential Are you a primary human services care specialist to a significant other at home: No Do you presently have visiting nurse or other home services: Yes (resides at [facility]) Alcohol intake: never Patient Tobacco Use Status: Tobacco use Unknown Smoked in Last 30 Days: No Use of substances other than those prescribed or required for medical reasons: No Currently Displaying Signs/Symptoms of Drug Intoxication Withdrawal: No Advance Directives: Yes Advance Directives on File: Yes Advance Directives Date on File: 01/16/21 service: No Current occupational status: disabled Meds Allergies Allergy/AdvReac Type Severity Reaction Status Date / Time No Known Allergies Allergy Verified 02/25/21 11:59 [No Known Allergies*] Active Medications: Current Medications Pharmacy Consult (Consult Rx Perform Med Rec) 1 each MISCELLANE ONCE PRN PRN Reason: Consult order Home Medications Medication Instructions Recorded Confirmed Last Taken Type atorvastatin 20 mg tablet 1 tab PO BEDTIME 01/16/21 05/05/23 Unknown History bisacodyl 10 mg rectal suppository 10 mg IN DAILY PRN Constipation 01/16/21 05/05/23 Unknown History duloxetine 20 mg capsule,delayed 1 cap PO DAILY 01/16/21 05/05/23 Unknown History release duloxetine 60 mg capsule,delayed 1 cap PO DAILY 01/16/21 05/05/23 Unknown History release furosemide 20 mg tablet 20 mg PO DAILY 01/16/21 05/05/23 Unknown History insulin aspart U-100 100 unit/mL 5 unit subcut TIDAC 01/16/21 05/05/23 Unknown History subcutaneous solution (Novolog U-100 Insulin aspart) insulin aspart U-100 100 unit/mL See Protocol subcut TIDWM 01/16/21 05/05/23 Unk nown History subcutaneous solution (Novolog U-100 Insulin aspart) magnesium oxide 400 mg PO BID 01/16/21 05/05/23 Unknown History metoprolol succinate 50 mg 1 tab PO DAILY 01/16/21 05/05/23 Unknown History tablet,extended release 24 hr polyethylene glycol 3350 17 17 g PO DAILY PRN Constipation 01/16/21 05/05/23 Unknown History gram/dose oral powder (Miralax) pregabalin 75 mg capsule 1 cap PO BID 01/16/21 05/05/23 Unknown History trazodone 50 mg tablet 25 mg PO BID 01/16/21 05/05/23 Unknown History insulin detemir U-100 100 unit/mL 98 unit subcut BID 03/10/21 05/05/23 Unknown History subcutaneous solution (Levemir U-100 Insulin) lorazepam 0.5 mg tablet 0.5 mg PO BEDTIME 03/10/21 05/05/23 Unknown History lorazepam 0.5 mg tablet (Ativan) 0.5 mg PO DAILY PRN Anxiety 03/10/21 05/05/23 Unknown History acetaminophen 500 mg tablet 1,000 mg PO Q8H PRN Pain 05/05/23 05/05/23 Unknown History albuterol sulfate 0.63 mg/3 mL 0.63 mg inhalation Q4H PRN 05/05/23 05/05/23 Unknown History solution for nebulization Congestion aluminum-mag hydroxide-simethicone 30 ml PO Q6H PRN Heartburn 05/05/23 05/05/23 Unknown History 200 mg-200 mg-20 mg/5 mL oral susp ([place]) dextrose 40 % oral gel (Glucose 10 g PO Q10M PRN Hypoglycemia 05/05/23 05/05/23 Unknown History Gel) dulaglutide 0.75 mg/0.5 mL 0.75 mg subcut FR 05/05/23 05/05/23 Unknown History subcutaneous pen injector (Trulicity) glucagon HCl 1 mg solution for 1 mg subcut Q20M PRN Hypoglycemia 05/05/23 05/05/23 Unknown History injection (Glucagon (HCl) Emergency Kit) guaifenesin 400 mg tablet 400 mg PO Q4H PRN Cough 05/05/23 05/05/23 Unknown History hydrocortisone 1 % topical cream 1 appl topical TID PRN Itching 05/05/2306/19 Unknown History ketoconazole 2 % shampoo 1 appl topical FR 05/05/23 05/05/23 Unknown History medroxyprogesterone 10 mg tablet 20 mg PO BID 05/05/23 05/05/23 Unknown History menthol 5 % topical patch (Icy Hot 1 patch topical BID 05/05/23 05/05/23 Unknown History (menthol)) methyl salicylate 15 %-menthol 10 1 appl topical TID PRN Pain 05/05/23 05/05/23 Unknown History % topical cream miconazole nitrate 2 % topical 1 appl topical BID 05/05/23 05/05/23 Unknown History powder morphine 15 mg immediate release 15 mg PO Q4H PRN pain 05/05/23 05/05/23 Unknown History tablet ondansetron HCl 4 mg tablet 4 mg PO Q8H PRN Nausea 05/05/23 05/05/23 Unknown History sumatriptan succinate 25 mg tablet 25 mg PO DAILY MRX1 PRN Migraine 05/05/23 05/05/23 Unknown History Headache trazodone 50 mg tablet 50 mg PO BEDTIME 05/05/23 05/05/23 Unknown History Physical Exam Vital Signs and Narrative: Vital Signs: Last Vital Signs Temp 97.6 F 05/05/23 14:32 Pulse 136 H 05/05/23 14:32 Resp 21 H 05/05/23 14:32 BP 150/88 H 05/05/23 14:32 Pulse Ox 97 05/05/23 14:32 O2 Del Method Nasal Cannula 05/05/23 14:32 O2 Flow Rate 4 05/05/23 14:32 Oxygen Flow Rate 4 05/05/23 09:31 BMI result Body Mass Index 40.1 Constitutional: Alert, in no acute distress. Mental Status: Oriented to person, place and time. Eyes: Pupils are equal, round, and reactive to light. Ear, Nose, and Throat: Oropharynx clear, mucous membranes moist. Ears and nose without deformities. Trachea midline. Respiratory: Clear to auscultation bilaterally. No wheezing, rales, or rhonchi. Cardiovascular: S1, S2 regular. No murmurs, rubs, or gallops. Gastrointestinal: Abdomen soft, non-tender, distended, obese. Normal bowel sounds. Neurologic: Cranial nerves II-XII are grossly intact bilaterally. No focal neurological deficits. Moves all extremities spontaneously. Skin: No rashes or lesions noted. Musculoskeletal: No cyanosis or clubbing. Extremities: No edema. Psychiatric: Normal mood and affect. Results Labs 05/05/23 09:43 05/05/23 09:43 Labs: Laboratory Results - last 24 hr 05/05/23 05/05/23 05/05/23 09:43 09:43 09:43 MCV 82.1 MCH 27.7 MCHC 33.8 RDW 12.4 Plt Count 256 D MPV 10.1 Immature Gran % (Auto) 0.7 H Neut % (Auto) 88.6 H Lymph % (Auto) 4.2 L [place] % (Auto) 6.4 Eos % (Auto) 0.0 Baso % (Auto) 0.1 Lymph # (Auto) 0.7 L [place] # (Auto) 1.1 Eos # (Auto) 0.0 Baso # (Auto) 0.0 Abs Immat Gran (auto) 0.12 H Absolute Neuts (auto) 15.5 H Absolute Nucleated RBC 0.000 Nucleated RBC % (auto) 0.0 PT 13.6 H INR 1.1 Anion Gap 17 Estim Creat Clear Calc 75.2 Estimated GFR 58 POC Glucose Random Glucose 482 H* Lactic Acid Lactic Acid F/U @ 2Hr Calcium 10.7 H D Total Bilirubin 1.3 H AST 63 H ALT 95 H Alkaline Phosphatase 96 Total Protein 7.1 Albumin 3.6 Urine Color Urine Appearance Urine pH Ur Specific [place] Urine Protein Urine Glucose (UA) Urine Ketones Urine Blood Urine Nitrite Ur Leukocyte Esterase Urine RBC Urine WBC Ur Squamous Epith Cells Urine Bacteria Hyaline Casts 05/05/23 05/05/23 05/05/23 09:43 09:57 12:26 MCV MCH MCHC RDW Plt Count MPV Immature Gran % (Auto) Neut % (Auto) Lymph % (Auto) [place] % (Auto) Eos % (Auto) Baso % (Auto) Lymph # (Auto) [place] # (Auto) Eos # (Auto) Baso # (Auto) Abs Immat Gran (auto) Absolute Neuts (auto) Absolute Nucleated RBC Nucleated RBC % (auto) PT INR Anion Gap Estim Creat Clear Calc Estimated GFR POC Glucose Random Glucose Lactic Acid 2.4 H* Lactic Acid F/U @ 2Hr 2.7 H* Calcium Total Bilirubin AST ALT Alkaline Phosphatase Total Protein Albumin Urine Color Yellow Urine Appearance Clear Urine pH 6.5 Ur Specific [place] >= 1.030 H Urine Protein 300 (3+) H Urine Glucose (UA) >=1000 H Urine Ketones 80 Urine Blood Moderate (2+) H Urine Nitrite Negative Ur Leukocyte Esterase Negative Urine RBC 6-10 H Urine WBC 0-5 Ur Squamous Epith Cells 0-2 Urine Bacteria None Seen Hyaline Casts 0-2 05/05/23 15:24 MCV MCH MCHC RDW Plt Count MPV Immature Gran % (Auto) Neut % (Auto) Lymph % (Auto) [place] % (Auto) Eos % (Auto) Baso % (Auto) Lymph # (Auto) [place] # (Auto) Eos # (Auto) Baso # (Auto) Abs Immat Gran (auto) Absolute Neuts (auto) Absolute Nucleated RBC Nucleated RBC % (auto) PT INR Anion Gap Estim Creat Clear Calc Estimated GFR POC Glucose 465 H* Random Glucose Lactic Acid Lactic Acid F/U @ 2Hr Calcium Total Bilirubin AST ALT Alkaline Phosphatase Total Protein Albumin Urine Color Urine Appearance Urine pH Ur Specific [place] Urine Protein Urine Glucose (UA) Urine Ketones Urine Blood Urine Nitrite Ur Leukocyte Esterase Urine RBC Urine WBC Ur Squamous Epith Cells Urine Bacteria Hyaline Casts Imaging Radiologist's Impressions: Impressions Abdomen/Pelvis CT 05/05/23 11:31 IMPRESSION: Multiple noncalcific gallstones. There is prominent fundal gallbladder folds again observed but now with patchy stranding of the pericholecystic fat. Small perihepatic ascites. Mild wall thickening of distal esophagus could be related to lack of distention versus esophagitis. Stomach distended, similar to the previous evaluation. Colonic diverticulosis. Increased attenuation in the anterior abdominal wall subcutaneous fat may be related to injection sites or edema. Endometrium thickened for a patient of this age at 2 cm. If not already performed, endometrial sampling recommended. Other incidental findings as noted above. Fleischner guidelines were followed. Chest X-Ray 05/05/23 12:06 IMPRESSION: No acute cardiopulmonary process. Abdomen Ultrasound 05/05/23 13:00 IMPRESSION: Cholelithiasis without evidence for acute cholecystitis. Assessment and Plan (1) Sepsis: Status: Acute Plan Pt is a 68-year-old female with a PMH significant for?CAD s/p stents, insulin- dependent diabetes type 2, HTN, HLD, osteoarthritis, home O2, and mood disorder who presents to the ED from SNF with nausea and vomiting x2 days. Patient met in the hospital for treatment and further evaluation of sepsis in setting of gastroparesis versus acute cholecystitis. Sepsis Patient meets sepsis criteria: WBC, tachycardia, tachypnea, lactic acidosis Unclear etiology: Gastroparesis versus acute cholecystitis, less likely viral ga stritis CT of abdomen and pelvis showed cholelithiasis with prominent fundal gallbladder folds with patchy stranding of the pericholecystic fat with small perihepatic ascites Abdominal ultrasound found cholelithiasis without evidence for acute cholecystitis General surgery consulted, recommended IV abx and IVF, and NGT if N/V persists, will reassess in morning for possible cholecystectomy tube ABX: Zosyn, started 05/05/2023 IVF: Lactated Ringer's Will give 1 dose of Reglan 10 mg Clear liquid diet for now, advance as tolerated Will check GI panel Will check respiratory panel Tachycardia Pt was tachycardic up to 130s in the ED, given metoprolol 5mg IV Continue metoprolol 50 mg ER p.o. Will monitor on telemetry Lactic acidosis Initial lactic acid 2.4 with repeat 2.7 Patient given IVF Will repeat lactic acid Insulin-dependent Diabetes type 2 Patient hypoglycemic at time of presentation: POCs in the 400s Hold home meds Sliding-scale insulin, Lantus Chronic back pain Continue home morphine Abnormal uterine bleeding Continue medroxyprogesterone Anxiety/depression Continue home meds Obesity class III Weight loss encouraged Full Code Attending:?Dr. Ruiz DVT Prophylaxis: Lovenox Pt will require a hospitalization of at least two nights for treatment and further evaluation of sepsis in the setting of gastroparesis versus acute cholecystitis. Time Spent With Patient Time: Total time managing care of this patient today ____ minutes. Quality Stroke Does the patient have a stroke diagnosis?: No VTE Prior VTE?: No VTE Risk Level:: Medical - moderate - high VTE Device Contraindication: Treatment Not Indicated VTE Drug Contraindication: N/A - Med Ordered
[2023-05-05] MEDS: Insulin Lispro 100 UNIT/ML 3 ML VIAL 8 UNIT SUBCUT (16:55)
[2023-05-05 17:04] LABS: Glucose, Whole Blood 422 mg/dL (60-115)
[2023-05-05 18:20] LABS: Glucose, Whole Blood 409 mg/dL (60-115)
[2023-05-05] MEDS: Enoxaparin Sodium 40 MG/0.4 ML SYRINGE SUBCUT (19:00)
[2023-05-05] MEDS: 0.9 % Sodium Chloride 1,000 ML 999 ML IV (19:01)
[2023-05-05] MEDS: Insulin Glargine,Hum.rec.anlog 100 UNIT/ML 10 ML VIAL 50 UNIT SUBCUT (19:01)
[2023-05-05] MEDS: Metoprolol Succinate ER 50 MG TAB.ER.24H PO (19:02)
--- NOTE | 2023-05-05 19:17 | PC.NURSE ---
pa ordered to give 2100 glargine early r/t elevated poc. no c/o pain/n/v/d. pa also aware elevated bp 188/97. denies cp/dizziness/sob at this time at rest.
--- NOTE | 2023-05-05 19:22 | PC.NURSE ---
called for report to robert rasheed rn
--- NOTE | 2023-05-05 19:30 | PC.NURSE ---
report given to floor RN. contacting transport
[2023-05-05 20:04] LABS: Lactic Acid 2.8 mmol/L (0.5-2.0)
--- NOTE | 2023-05-05 20:28 | PC.NURSE ---
awaiting pa response to confirm pt going to non-tele floor and to notify hr remains 130-140. no cp/sob/dizziness.
--- NOTE | 2023-05-05 20:30 | PC.NURSE ---
pa changing order to telemetry floor and no longer going to assigned bed re: elevated hr/bp- pa continues to be aware elevated hr 130-140s
--- NOTE | 2023-05-05 21:25 | PC.NURSE ---
rectal temp 101.4
[2023-05-05 21:31] LABS: Reflex Lactate? Lactic Acid Added
--- NOTE | 2023-05-05 21:35 | MHC.EDTECH ---
Upon rectal temperature patient was wet. Changed and wiped bed clean. Put clean linen. Patient care completed and put clean ariel. Put a bed sheet on patient.
[2023-05-05 22:06] LABS: D Dimer High Sensitivity 1660 NG/ML
[2023-05-05 22:08] LABS: ~Lactic Acid-LAB USE ONLY 3.5 mmol/L (0.5-2.0)
[2023-05-05 22:12] LABS: Glucose, Whole Blood 466 mg/dL (60-115)
[2023-05-05] MEDS: traZODone HCL 25 MG HALFTAB PO (22:23)
[2023-05-05] MEDS: Pregabalin 75 MG CAPSULE PO (22:23)
[2023-05-05] MEDS: Magnesium Oxide 400 MG TABLET PO (22:23)
[2023-05-05] MEDS: traZODone HCL 50 MG TABLET PO (22:23)
[2023-05-05] MEDS: Insulin Lispro 100 UNIT/ML 3 ML VIAL SUBCUT (22:23)
[2023-05-05] MEDS: LORazepam 0.5 MG TABLET PO (22:24)
[2023-05-05] MEDS: Atorvastatin Calcium 20 MG TABLET PO (22:24)
[2023-05-05] MEDS: Acetaminophen 325 MG TABLET 650 MG PO (22:40)
[2023-05-05] MEDS: Insulin Lispro 100 UNIT/ML 3 ML VIAL 10 UNIT SUBCUT (22:47)
[2023-05-05] MEDS: Lactated Ringers 1,000 ML 100 ML IVCONT (22:49)
[2023-05-05] MEDS: medroxyPROGESTERone Acetate 5 MG TABLET 20 MG PO (22:52)
[2023-05-05 23:40] LABS: Reflex Lactate? 2 Y
--- NOTE | 2023-05-05 23:45 | PC.NURSE ---
pt assessed during the shift, pc 466, medicated with 20 units of lispro per MD
[2023-05-06] VITALS (7 sets, daily range): BP systolic 144–174; BP diastolic 60–74; PULSE 97–113; RESP 14–29; TEMP 36.1–37.1; O2SAT 97–99
[2023-05-06 00:06] LABS: Glucose, Whole Blood 425 mg/dL (60-115)
[2023-05-06] MEDS: Piperacillin Sodium/Tazobactam 3.375 GM in 0.9 % Sodium Chloride 50 ML IV ×4 (00:22→21:15)
[2023-05-06] MEDS: 0.9 % Sodium Chloride Flush 3 ML SYRINGE IVFLUSH ×4 (00:23→21:17)
[2023-05-06 00:53] LABS: ~Lactic Acid-LAB USE ONLY 3.8 mmol/L (0.5-2.0)
[2023-05-06] MEDS: Insulin Lispro 100 UNIT/ML 3 ML VIAL 10 UNIT SUBCUT (01:37)
[2023-05-06] MEDS: Lactated Ringers 1,000 ML 100 ML IVCONT ×4 (01:38→21:16)
--- NOTE | 2023-05-06 01:49 | PC.NURSE ---
Addendum entered by Elisa Gramajo RN 05/06/23 03:22: poc 292 correction Original Note: pt medicated with 10 units of lispro im for poc 425
[2023-05-06] MEDS: vancomycin/NS 2,000 MG/500 ML PLAST..BAG 250 MG IV (02:02)
[2023-05-06 02:05] LABS: INTERNATIONAL NORM RATIO 1.2 (0.9-1.1); Prothrombin Time 14.7 SEC (11.1-13.3)
[2023-05-06] MEDS: Lactated Ringers 1,000 ML 999 ML IV ×2 (02:49→04:38)
[2023-05-06] MEDS: 0.9 % Sodium Chloride 1,917 ML 1917 ML IV (02:55)
[2023-05-06 03:01] LABS: Partial Thromboplastin Time 22.1 SEC (26.0-36.4)
[2023-05-06] MEDS: Enoxaparin Sodium 120 MG/0.8 ML SYRINGE SUBCUT (03:12)
[2023-05-06 03:15] LABS: Glucose, Whole Blood 369 mg/dL (60-115)
--- NOTE | 2023-05-06 06:48 | PC.NURSE ---
ADMIT TO 485-1 APPROX 0545..AWAKE..ALERT..ORIENTED X2..VAGUE RESPONSES TO QUESTIONS...RESPIRATIONS EASY WITH O2 3 L/M..BP STABLE...NSR..NO ECTOPY...COCCYX REDDENED WITH OLD HEALING WOUNDS...RIGHT FOREARM WITH FREDERIC WRAP..STATED I HAVE CARPAL TUNNEL SYNDROME...DENIES NAUSEA OR ABDOMINAL PAIN...RESPIRATORY PANEL AND COVID SWAb obtained and pending
--- NOTE | 2023-05-06 06:52 | PM.EVENT ---
Event Note Date of Service: 05/06/23 Event Note: patient continued to be tachycardic, a D-dimer was obtained which was significantly elevated, patient was started prophylactically on therapeutic Lovenox, unable to obtain CT angiogram for PE protocol as patient was injected with contrast earlier in the day, will treat with Lovenox given my high suspicion, monitor closely Time Spent With Patient Time: Total time managing care of this patient today ____ minutes.
[2023-05-06 06:55] LABS: COVID-19 Test Negative (Negative); IDNOW Serial# 6674DD1D
[2023-05-06 07:32] LABS: Glucose, Whole Blood 295 mg/dL (60-115)
[2023-05-06 07:35] LABS: Hematocrit 39.9 % (37.0-47.0); Hemoglobin 12.9 g/dl (12.0-16.0); Mean Corpuscular HGB Conc 32.3 g/dl (31.0-35.0); Mean Corpuscular Hemoglobin 27.4 pg (27.0-33.0); Mean Corpuscular Volume 84.7 fL (80.0-98.0); Mean Platelet Volume 11.3 fL (9.4-12.3); Platelet Count 187 X10*3/uL (160-400); Red Blood Count 4.71 X10*6/uL (4.20-5.50); Red Cell Distribution Width 12.6 % (11.0-16.0); White Blood Count 13.5 X10*3/uL (4.8-10.8)
--- NOTE | 2023-05-06 07:37 | PHA.PROG ---
Admission Date/Time: May 05, 2023 17:30 Indication:SEPSIS Weight in k.6 kg Adjusted body weight in K.18 Severance body weight in K.9 Obesity Dosing Indication % IBW: 40.1 Serum Creatinine - Last 168 Hours 05/05/23 09:43 Creatinine 0.96 Estimated CrCl and GFR - Last 168 Hours 05/05/23 09:43 Estim Creat Clear Calc 75.2 Estimated GFR 58 Vancomycin Loading Dose: 2000 MG Current Vancomycin Dosing Regimen: 750 Q12H Vancomycin Monitoring using AUC goal of 400 - 600 range with trough as surrogate marker:522 Date and Time for next Vancomycin Level to be drawn: 05/07 @0900 Pharmacist Comments on Vancomycin Plan: Loading dose given overnight was appropriate. Pt is obese but has good renal function. Obese model used in insight shows trough should reach 16.7. Vancomycin dosing will take advantage of [employer] as a clinical decision support tool that uses Bayesian modeling to calculate individual patient's pharmacokinetic parameters and forecast the patient's drug concentration time course with the target goal AUC 24 range of 400 - 600 mg/L/hr.
[2023-05-06] MEDS: DULoxetine HCl 60 MG CAPSULE.DR PO (07:49)
[2023-05-06] MEDS: DULoxetine HCl 20 MG CAPSULE.DR PO (07:49)
[2023-05-06] MEDS: Insulin Lispro 100 UNIT/ML 3 ML VIAL SUBCUT ×4 (07:49→21:16)
[2023-05-06] MEDS: Furosemide 20 MG TABLET PO (07:49)
[2023-05-06] MEDS: Metoprolol Succinate ER 50 MG TAB.ER.24H PO (07:49)
[2023-05-06] MEDS: Magnesium Oxide 400 MG TABLET PO ×2 (07:49→21:16)
[2023-05-06] MEDS: Pregabalin 75 MG CAPSULE PO ×2 (07:50→21:16)
[2023-05-06] MEDS: traZODone HCL 25 MG HALFTAB PO ×2 (07:50→21:16)
[2023-05-06] MEDS: medroxyPROGESTERone Acetate 5 MG TABLET 20 MG PO ×2 (07:50→21:15)
[2023-05-06 08:04] LABS: Alanine Aminotransferase 49 U/L (0-31); Albumin Level 2.6 g/dL (3.5-5.0); Alkaline Phosphatase 63 U/L (39-117); Anion Gap 12 (12-20); Aspartate Amino Transferase 18 U/L (5-31); Bilirubin Direct 0.3 mg/dL (0.0-0.5); Bilirubin Total 0.7 mg/dL (0.0-1.0); Blood Urea Nitrogen 12 mg/dL (9-16); Calcium 9.3 mg/dL (8.4-10.2); Carbon Dioxide 24 mmol/L (22-29); Chloride 104 mmol/L (96-108); Creatinine Clr Calc Pharmacy 100.3; Estimated Glomerular Filt Rate > 60; Glucose Random 334 mg/dL (60-115); Potassium 3.2 mmol/L (3.3-5.1); Sodium 137 mmol/L (135-145); Total Protein 5.4 g/dL (6.5-8.0)
--- NOTE | 2023-05-06 08:58 | P.PNGS_ITS ---
Subjective Subjective Date of Service: 05/06/23 Interval history: Feels worse overall this morning, tired. Denies abdominal pain or further nausea/vomiting. Reports some difficulty breathing. Physical Exam Vital Signs: Vital Signs: Last Vital Signs Temp 98.7 F 05/06/23 07:20 Pulse 98 05/06/23 07:20 Resp 20 05/06/23 07:20 BP 150/67 H 05/06/23 07:20 Pulse Ox 97 05/06/23 07:20 O2 Del Method Nasal Cannula 05/06/23 07:20 O2 Flow Rate 3 05/06/23 07:20 Oxygen Flow Rate 4 05/05/23 09:31 BMI result Body Mass Index 40.1 Const: General: ill appearing and tired appearing Orientation/consciousness: patient oriented x3 Resp: Effort & Inspection: tachypneic GI: Inspection: Yes obesity Palpation (GI): Soft to palpation, Tenderness to palpation present (GI) in the RUQ (mild); Pena's sign negative, no guarding and not rigid Skin: General skin exam: no rashes or lesions noted and no jaundice Neuro: General: patient oriented x3 and moves all extremities Objective Data Active Medications Acetaminophen (Acetaminophen 325 Mg Tablet) 650 mg PO Q6H PRN PRN Reason: Pain, Mild (Pain Scale 1-3) Last Admin: 05/05/23 22:40 Dose: 650 mg Documented By: ANGEL Al Hydroxide/Mg Hydroxide (Magnesium Hydrox/Alum Hydrox 30 Ml Oral.Susp) 30 ml PO Q6H PRN PRN Reason: Heartburn Albuterol Sulfate (Albuterol Sulfate (0.042%) 1.25 Mg/3 Ml Vial.Neb) 0.63 mg INHALE Q4H PRN PRN Reason: Congestion Atorvastatin Calcium (Atorvastatin Calcium 20 Mg Tablet) 20 mg PO BEDTIME SUSAN Last Admin: 05/05/23 22:24 Dose: 20 mg Documented By: ANGEL Bisacodyl (Bisacodyl 10 Mg Supp.Rect) 10 mg [place] DAILY PRN PRN Reason: Constipation Dextrose (Dextrose 50 % 25 Gm/50 Ml Syringe) 25 gm IVPUSH Q15M PRN; Protocol PRN Reason: per Hypoglycemia Standing Ord. Docusate Sodium (Docusate Sodium 100 Mg Capsule) 100 mg PO DAILY PRN PRN Reason: Constipation Duloxetine HCl (Duloxetine Hcl 20 Mg Capsule.) 20 mg PO DAILY [facility] Last Admin: 05/06/23 07:49 Dose: 20 mg Documented By: SALEEM Duloxetine HCl (Duloxetine Hcl 60 Mg Capsule.) 60 mg PO DAILY [facility] Last Admin: 05/06/23 07:49 Dose: 60 mg Documented By: SALEEM Enoxaparin Sodium (Enoxaparin Sodium 40 Mg/0.4 Ml Syringe) 40 mg SUBCUT Q24H [facility] Last Admin: 05/05/23 19:00 Dose: 40 mg Documented By: DARYL Furosemide (Furosemide 20 Mg Tablet) 20 mg PO DAILY [facility]; Protocol Last Admin: 05/06/23 07:49 Dose: 20 mg Documented By: SALEEM Glucose (Glucose Gel 15 Gm Gel..Gram.) 15 gm PO Q15M PRN; Protocol PRN Reason: per Hypoglycemia Standing Ord. Lactated Ringer's (Lr) 1,000 mls @ 100 mls/hr IVCONT .Q10H [facility] Last Admin: 05/06/23 06:22 Dose: 100 mls/hr Documented By: ZARA Piperacillin Sod/Tazobactam (Sod 3.375 gm/ Sodium Chloride) 50 mls @ 100 mls/hr IV Q6H [facility] Last Infusion: 05/06/23 07:27 Dose: 0 mls/hr Documented By: SALEEM Vancomycin HCl 750 mg/ Sodium (Chloride) 265 mls @ 265 mls/hr IV Q12H [facility] Insulin Glargine (Insulin Glargine,Hum.Rec.Anlog 100 Unit/Ml 10 Ml Vial) 50 unit SUBCUT BEDTIME [facility] Last Admin: 05/05/23 19:01 Dose: 50 unit Documented By: DARYL Insulin Glargine (Insulin Glargine,Hum.Rec.Anlog 100 Unit/Ml 10 Ml Vial) 50 unit SUBCUT DAILY [facility] Insulin Human Lispro (Insulin Lispro 100 Unit/Ml 3 Ml Vial) 0 unit SUBCUT QIDACHS [facility]; Protocol Last Admin: 05/06/23 07:49 Dose: 6 unit Documented By: SALEEM Lorazepam (Lorazepam 0.5 Mg Tablet) 0.5 mg PO DAILY PRN PRN Reason: Anxiety Lorazepam (Lorazepam 0.5 Mg Tablet) 0.5 mg PO BEDTIME [facility] Last Admin: 05/05/23 22:24 Dose: 0.5 mg Documented By: ANGEL Magnesium Oxide (Magnesium Oxide 400 Mg Tablet) 400 mg PO BID [facility] Last Admin: 05/06/23 07:49 Dose: 400 mg Documented By: SALEEM Medroxyprogesterone Acetate (Medroxyprogesterone Acetate 5 Mg Tablet) 20 mg PO BID [facility] Last Admin: 05/06/23 07:50 Dose: 20 mg Documented By: SALEEM Metoprolol Succinate (Metoprolol Succinate Er 50 Mg Tab.Er.24h) 50 mg PO DAILY [facility]; Protocol Last Admin: 05/06/23 07:49 Dose: 50 mg Documented By: SALEEM Morphine Sulfate (Morphine Sulfate Immed Release 15 Mg Tablet) 15 mg PO Q4H PRN PRN Reason: Pain, Moderate(Pain Scale 4-6) Ondansetron HCl (Ondansetron Hcl 4 Mg/2 Ml Vial) 4 mg IVPUSH Q8H PRN PRN Reason: Nausea and Vomiting Pharmacy Consult (Consult Rx Perform Med Rec) 1 each MISCELLANE ONCE PRN PRN Reason: Consult order Pharmacy Consult (Consult Rx Vancomycin Dosing) 1 each MISCELLANE DAILY PRN PRN Reason: Consult order Polyethylene Glycol (Polyethylene Glycol 3350 17 Gm Powd.Pack) 17 gm PO DAILY PRN PRN Reason: Constipation Pregabalin (Pregabalin 75 Mg Capsule) 75 mg PO BID [facility] Last Admin: 05/06/23 07:50 Dose: 75 mg Documented By: SALEEM Sodium Chloride (0.9 % Sodium Chloride Flush 3 Ml Syringe) 3 ml IVFLUSH QSHIFT [facility] Last Admin: 05/06/23 07:50 Dose: 3 ml Documented By: SALEEM Sumatriptan Succinate (Sumatriptan Succinate 25 Mg Tablet) 25 mg PO DAILY MRX1 PRN PRN Reason: Migraine Headache Trazodone HCl (Trazodone Hcl 25 Mg Halftab) 25 mg PO BID [facility] Last Admin: 05/06/23 07:50 Dose: 25 mg Documented By: SALEEM Trazodone HCl (Trazodone Hcl 50 Mg Tablet) 50 mg PO BEDTIME [facility] Last Admin: 05/05/23 22:23 Dose: 50 mg Documented By: ANGEL Labs 05/06/23 06:58 05/06/23 06:58 Labs: Laboratory Results - last 24 hr 05/05/23 05/05/23 05/05/23 09:43 09:43 09:43 MCV 82.1 MCH 27.7 MCHC 33.8 RDW 12.4 Plt Count 256 D MPV 10.1 Immature Gran % (Auto) 0.7 H Neut % (Auto) 88.6 H Lymph % (Auto) 4.2 L Gage % (Auto) 6.4 Eos % (Auto) 0.0 Baso % (Auto) 0.1 Lymph # (Auto) 0.7 L Gage # (Auto) 1.1 Eos # (Auto) 0.0 Baso # (Auto) 0.0 Abs Immat Gran (auto) 0.12 H Absolute Neuts (auto) 15.5 H Absolute Nucleated RBC 0.000 Nucleated RBC % (auto) 0.0 PT 13.6 H INR 1.1 APTT D-Dimer High Sensitivty Anion Gap 17 Estim Creat Clear Calc 75.2 Estimated GFR 58 POC Glucose Random Glucose 482 H* Lactic Acid Lactic Acid F/U @ 2Hr Lactic Acid F/U @ 4Hr Calcium 10.7 H D Total Bilirubin 1.3 H Direct Bilirubin AST 63 H ALT 95 H Alkaline Phosphatase 96 Total Protein 7.1 Albumin 3.6 Urine Color Urine Appearance Urine pH Ur Specific [place] Urine Protein Urine Glucose (UA) Urine Ketones Urine Blood Urine Nitrite Ur Leukocyte Esterase Urine RBC Urine WBC Ur Squamous Epith Cells Urine Bacteria Hyaline Casts COVID-19 ([facility]) COVID-19 Clin Com 05/05/23 05/05/23 05/05/23 09:43 09:57 12:26 MCV MCH MCHC RDW Plt Count MPV Immature Gran % (Auto) Neut % (Auto) Lymph % (Auto) Gage % (Auto) Eos % (Auto) Baso % (Auto) Lymph # (Auto) Gage # (Auto) Eos # (Auto) Baso # (Auto) Abs Immat Gran (auto) Absolute Neuts (auto) Absolute Nucleated RBC Nucleated RBC % (auto) PT INR APTT D-Dimer High Sensitivty Anion Gap Estim Creat Clear Calc Estimated GFR POC Glucose Random Glucose Lactic Acid 2.4 H* Lactic Acid F/U @ 2Hr 2.7 H* Lactic Acid F/U @ 4Hr Calcium Total Bilirubin Direct Bilirubin AST ALT Alkaline Phosphatase Total Protein Albumin Urine Color Yellow Urine Appearance Clear Urine pH 6.5 Ur Specific [place] >= 1.030 H Urine Protein 300 (3+) H Urine Glucose (UA) >=1000 H Urine Ketones 80 Urine Blood Moderate (2+) H Urine Nitrite Negative Ur Leukocyte Esterase Negative Urine RBC 6-10 H Urine WBC 0-5 Ur Squamous Epith Cells 0-2 Urine Bacteria None Seen Hyaline Casts 0-2 COVID-19 ([facility]) COVID-19 Clin Com 05/05/23 05/05/23 05/05/23 15:24 16:57 18:14 MCV MCH MCHC RDW Plt Count MPV Immature Gran % (Auto) Neut % (Auto) Lymph % (Auto) Gage % (Auto) Eos % (Auto) Baso % (Auto) Lymph # (Auto) Gage # (Auto) Eos # (Auto) Baso # (Auto) Abs Immat Gran (auto) Absolute Neuts (auto) Absolute Nucleated RBC Nucleated RBC % (auto) PT INR APTT D-Dimer High Sensitivty Anion Gap Estim Creat Clear Calc Estimated GFR POC Glucose 465 H* 422 H* 409 H* Random Glucose Lactic Acid Lactic Acid F/U @ 2Hr Lactic Acid F/U @ 4Hr Calcium Total Bilirubin Direct Bilirubin AST ALT Alkaline Phosphatase Total Protein Albumin Urine Color Urine Appearance Urine pH Ur Specific [place] Urine Protein Urine Glucose (UA) Urine Ketones Urine Blood Urine Nitrite Ur Leukocyte Esterase Urine RBC Urine WBC Ur Squamous Epith Cells Urine Bacteria Hyaline Casts COVID-19 ([facility]) COVID-19 Clin Com 05/05/23 05/05/23 05/05/23 19:27 21:35 21:35 MCV MCH MCHC RDW Plt Count MPV Immature Gran % (Auto) Neut % (Auto) Lymph % (Auto) Gage % (Auto) Eos % (Auto) Baso % (Auto) Lymph # (Auto) Gage # (Auto) Eos # (Auto) Baso # (Auto) Abs Immat Gran (auto) Absolute Neuts (auto) Absolute Nucleated RBC Nucleated RBC % (auto) PT INR APTT D-Dimer High Sensitivty 1660 Anion Gap Estim Creat Clear Calc Estimated GFR POC Glucose Random Glucose Lactic Acid 2.8 H* Lactic Acid F/U @ 2Hr 3.5 H* Lactic Acid F/U @ 4Hr Calcium Total Bilirubin Direct Bilirubin AST ALT Alkaline Phosphatase Total Protein Albumin Urine Color Urine Appearance Urine pH Ur Specific [place] Urine Protein Urine Glucose (UA) Urine Ketones Urine Blood Urine Nitrite Ur Leukocyte Esterase Urine RBC Urine WBC Ur Squamous Epith Cells Urine Bacteria Hyaline Casts COVID-19 ([facility]) COVID-19 Clin Com 05/05/23 05/05/23 05/06/23 22:08 23:59 00:02 MCV MCH MCHC RDW Plt Count MPV Immature Gran % (Auto) Neut % (Auto) Lymph % (Auto) Gage % (Auto) Eos % (Auto) Baso % (Auto) Lymph # (Auto) Gage # (Auto) Eos # (Auto) Baso # (Auto) Abs Immat Gran (auto) Absolute Neuts (auto) Absolute Nucleated RBC Nucleated RBC % (auto) PT INR APTT D-Dimer High Sensitivty Anion Gap Estim Creat Clear Calc Estimated GFR POC Glucose 466 H* 425 H* Random Glucose Lactic Acid Lactic Acid F/U @ 2Hr Lactic Acid F/U @ 4Hr 3.8 H* Calcium Total Bilirubin Direct Bilirubin AST ALT Alkaline Phosphatase Total Protein Albumin Urine Color Urine Appearance Urine pH Ur Specific [place] Urine Protein Urine Glucose (UA) Urine Ketones Urine Blood Urine Nitrite Ur Leukocyte Esterase Urine RBC Urine WBC Ur Squamous Epith Cells Urine Bacteria Hyaline Casts COVID-19 ([facility]) COVID-19 Clin Com 05/06/23 05/06/23 05/06/23 01:54 03:09 06:00 MCV MCH MCHC RDW Plt Count MPV Immature Gran % (Auto) Neut % (Auto) Lymph % (Auto) Gage % (Auto) Eos % (Auto) Baso % (Auto) Lymph # (Auto) Gage # (Auto) Eos # (Auto) Baso # (Auto) Abs Immat Gran (auto) Absolute Neuts (auto) Absolute Nucleated RBC Nucleated RBC % (auto) PT 14.7 H INR 1.2 H APTT 22.1 L D-Dimer High Sensitivty Anion Gap Estim Creat Clear Calc Estimated GFR POC Glucose 369 H* Random Glucose Lactic Acid Lactic Acid F/U @ 2Hr Lactic Acid F/U @ 4Hr Calcium Total Bilirubin Direct Bilirubin AST ALT Alkaline Phosphatase Total Protein Albumin Urine Color Urine Appearance Urine pH Ur Specific [place] Urine Protein Urine Glucose (UA) Urine Ketones Urine Blood Urine Nitrite Ur Leukocyte Esterase Urine RBC Urine WBC Ur Squamous Epith Cells Urine Bacteria Hyaline Casts COVID-19 ([facility]) Negative COVID-19 Clin Com See Note 05/06/23 05/06/23 05/06/23 06:58 06:58 07:24 MCV 84.7 MCH 27.4 MCHC 32.3 RDW 12.6 Plt Count 187 D MPV 11.3 Immature Gran % (Auto) Neut % (Auto) Lymph % (Auto) Gage % (Auto) Eos % (Auto) Baso % (Auto) Lymph # (Auto) Gage # (Auto) Eos # (Auto) Baso # (Auto) Abs Immat Gran (auto) Absolute Neuts (auto) Absolute Nucleated RBC 0.000 Nucleated RBC % (auto) 0.0 PT INR APTT D-Dimer High Sensitivty Anion Gap 12 Estim Creat Clear Calc 100.3 Estimated GFR > 60 POC Glucose 295 H Random Glucose 334 H Lactic Acid Lactic Acid F/U @ 2Hr Lactic Acid F/U @ 4Hr Calcium 9.3 D Total Bilirubin 0.7 Direct Bilirubin 0.3 AST 18 ALT 49 H Alkaline Phosphatase 63 Total Protein 5.4 L Albumin 2.6 L Urine Color Urine Appearance Urine pH Ur Specific [place] Urine Protein Urine Glucose (UA) Urine Ketones Urine Blood Urine Nitrite Ur Leukocyte Esterase Urine RBC Urine WBC Ur Squamous Epith Cells Urine Bacteria Hyaline Casts COVID-19 ([facility]) COVID-19 Clin Com Procedures Date of Service Date of Service: 05/06/23 Progress Note: A&P Assessment and plan (1) Acute cholecystitis: Status: Acute (2) Sepsis: Status: Acute Plan 68 year old female with extensive PMH admitted for sepsis, likely early acute cholecystitis. She however was persistently tachycardic and tachypneic overnight, Ddimer obtained and elevated. Therefore started on therapeutic lovenox while awaiting CTA for PE. Her abdomen remains benign with very mild RUQ tenderness, WBC improved. Can continue conservative management of the acute cholecystitis and hold off on IR drainage. Will continue to follow. Time Spent With Patient Time: Total time managing care of this patient today ____ minutes. Quality Stroke Does the patient have a stroke diagnosis?: No VTE Prior VTE?: No VTE Risk Level:: Medical - moderate - high VTE Device Contraindication: Treatment Not Indicated VTE Drug Contraindication: N/A - Med Ordered
--- NOTE | 2023-05-06 09:05 | MHC.CM.PN ---
CM ATTMEPTED TO CONTACT PT'S /HCP HERMILO AT 9:02AM [phone] AND RECEIVED MESSAGE THAT IT IS NOT A WORKING NUMBER, CM ALSO ATTMEPTED TO CONTACT PT'S DTR RIA WILKINSON [phone] AND NO ANSWER, MESSAGE LEFT W/CM CONTACT INFO AND REQUEST FOR RETURN CALL. IMM 05/06/23 DELIVERED TO BEDSIDE, PT RESIDES AT [facility], PLAN WILL BE FOR RETURN ONCE MEDICALLY CLEARED, PCP ON FILE VERIFIED AND HCP/MOLST ON FILE FROM PREVIOUS VISIT.
[2023-05-06] MEDS: Potassium Chloride/H20 10 MEQ/100 ML PIGGYBACK 100 MEQ IV ×4 (10:24→16:08)
[2023-05-06 11:18] LABS: Glucose, Whole Blood 250 mg/dL (60-115)
[2023-05-06] MEDS: vancomycin HCL 750 MG in 0.9 % Sodium Chloride 250 ML 265 MG IV ×2 (11:29→23:16)
[2023-05-06 11:32] LABS: Adenovirus PCR Not Detected (Not Detect.); Bordetella parapertussis PCR Not Detected (Not Detect.); Bordetella pertussis PCR Not Detected (Not Detect.); Chlamydia pneumoniae PCR Not Detected (Not Detect.); Coronavirus 229E PCR Not Detected (Not Detect.); Coronavirus HKU1 PCR Not Detected (Not Detect.); Coronavirus NL63 PCR Not Detected (Not Detect.); Coronavirus OC43 PCR Not Detected (Not Detect.); Human metapneumovirus PCR Not Detected (Not Detect.); Influenza A PCR Not Detected (Not Detect.); Influenza B PCR Not Detected (Not Detect.); Mycoplasma pneumoniae PCR Not Detected (Not Detect.); Parainfluenza 1 PCR Not Detected (Not Detect.); Parainfluenza 2 PCR Not Detected (Not Detect.); Parainfluenza 3 PCR Not Detected (Not Detect.); Parainfluenza 4 PCR Not Detected (Not Detect.); RSV PCR Not Detected (Not Detect.); Resp Panel NA Note ND; Rhino/Enterovirus PCR Not Detected (Not Detect.); SARS-CoV-2 PCR Not Detected (Not Detect.)
[2023-05-06] MEDS: iohexoL 350 MG/ML 100 ML INFUS..BTL IV (14:49)
--- NOTE | 2023-05-06 15:40 | MHC.CM.PN ---
Cm received copy of new HCP as pt's has been unreachable for months, pt's dtr Pallavi Mcbride [phone], [facility] chart.
[2023-05-06 15:55] LABS: Glucose, Whole Blood 233 mg/dL (60-115)
--- NOTE | 2023-05-06 17:17 | P.PNIM_ITS ---
Subjective Subjective Date of Service: 05/06/23 Interval History: Nausea, vomiting Review of Systems This morning patient denies any nausea vomiting or abdominal pain Overnight was tachycardic Physical Exam Vital Signs: Vital Signs: Last Vital Signs Temp 97.0 F 05/06/23 15:20 Pulse 98 05/06/23 15:20 Resp 15 05/06/23 15:20 BP 168/74 H 05/06/23 15:20 Pulse Ox 99 05/06/23 15:20 O2 Del Method Nasal Cannula 05/06/23 15:20 O2 Flow Rate 2 05/06/23 15:20 Oxygen Flow Rate 4 05/05/23 09:31 BMI result Body Mass Index 40.1 Appearance: Alert.? Oriented X3.? not in distress.? cvs: rrr, [id number] . res: clear to auscultation ,no rhonchii or wheezing abd: no rebound or guarding ,nt, bs present. ext pulses present , no cyanosis. neuro: axo3 , nonfocal. Objective Data Active Medications Acetaminophen (Acetaminophen 325 Mg Tablet) 650 mg PO Q6H PRN PRN Reason: Pain, Mild (Pain Scale 1-3) Last Admin: 05/05/23 22:40 Dose: 650 mg Documented By: ANGEL Al Hydroxide/Mg Hydroxide (Magnesium Hydrox/Alum Hydrox 30 Ml Oral.Susp) 30 ml PO Q6H PRN PRN Reason: Heartburn Albuterol Sulfate (Albuterol Sulfate (0.042%) 1.25 Mg/3 Ml Vial.Neb) 0.63 mg INHALE Q4H PRN PRN Reason: Congestion Atorvastatin Calcium (Atorvastatin Calcium 20 Mg Tablet) 20 mg PO BEDTIME [facility] Last Admin: 05/05/23 22:24 Dose: 20 mg Documented By: ANGEL Bisacodyl (Bisacodyl 10 Mg Supp.Rect) 10 mg PA DAILY PRN PRN Reason: Constipation Dextrose (Dextrose 50 % 25 Gm/50 Ml Syringe) 25 gm IVPUSH Q15M PRN; Protocol PRN Reason: per Hypoglycemia Standing Ord. Docusate Sodium (Docusate Sodium 100 Mg Capsule) 100 mg PO DAILY PRN PRN Reason: Constipation Duloxetine HCl (Duloxetine Hcl 20 Mg Capsule.) 20 mg PO DAILY [facility] Last Admin: 05/06/23 07:49 Dose: 20 mg Documented By: SALEEM Duloxetine HCl (Duloxetine Hcl 60 Mg Capsule.Dr) 60 mg PO DAILY [facility] Last Admin: 05/06/23 07:49 Dose: 60 mg Documented By: SALEEM Enoxaparin Sodium (Enoxaparin Sodium 40 Mg/0.4 Ml Syringe) 40 mg SUBCUT Q24H [facility] Last Admin: 05/05/23 19:00 Dose: 40 mg Documented By: DARYL Furosemide (Furosemide 20 Mg Tablet) 20 mg PO DAILY [facility]; Protocol Last Admin: 05/06/23 07:49 Dose: 20 mg Documented By: SALEEM Glucose (Glucose Gel 15 Gm Gel..Gram.) 15 gm PO Q15M PRN; Protocol PRN Reason: per Hypoglycemia Standing Ord. Lactated Ringer's (Lr) 1,000 mls @ 100 mls/hr IVCONT .Q10H [facility] Last Admin: 05/06/23 06:22 Dose: 100 mls/hr Documented By: ZARA Vancomycin HCl 750 mg/ Sodium (Chloride) 265 mls @ 265 mls/hr IV Q12H [facility] Last Infusion: 05/06/23 14:59 Dose: 0 mls/hr Documented By: SALEEM Piperacillin Sod/Tazobactam (Sod 3.375 gm/ Sodium Chloride) 50 mls @ 100 mls/hr IV Q6H [facility] Last Infusion: 05/06/23 15:54 Dose: 0 mls/hr Documented By: SALEEM Insulin Glargine (Insulin Glargine,Hum.Rec.Anlog 100 Unit/Ml 10 Ml Vial) 50 unit SUBCUT BEDTIME [facility] Last Admin: 05/05/23 19:01 Dose: 50 unit Documented By: DARYL Insulin Glargine (Insulin Glargine,Hum.Rec.Anlog 100 Unit/Ml 10 Ml Vial) 50 unit SUBCUT DAILY [facility] Last Admin: 05/06/23 09:01 Dose: Not Given Documented By: SALEEM Non-Admin Reason: Physician Held Med Insulin Human Lispro (Insulin Lispro 100 Unit/Ml 3 Ml Vial) 0 unit SUBCUT QIDACHS [facility]; Protocol Last Admin: 05/06/23 16:13 Dose: 4 unit Documented By: SALEEM Lorazepam (Lorazepam 0.5 Mg Tablet) 0.5 mg PO DAILY PRN PRN Reason: Anxiety Lorazepam (Lorazepam 0.5 Mg Tablet) 0.5 mg PO BEDTIME [facility] Last Admin: 05/05/23 22:24 Dose: 0.5 mg Documented By: ANGEL Magnesium Oxide (Magnesium Oxide 400 Mg Tablet) 400 mg PO BID [facility] Last Admin: 05/06/23 07:49 Dose: 400 mg Documented By: SALEEM Medroxyprogesterone Acetate (Medroxyprogesterone Acetate 5 Mg Tablet) 20 mg PO BID [facility] Last Admin: 05/06/23 07:50 Dose: 20 mg Documented By: SALEEM Metoprolol Succinate (Metoprolol Succinate Er 50 Mg Tab.Er.24h) 50 mg PO DAILY [facility]; Protocol Last Admin: 05/06/23 07:49 Dose: 50 mg Documented By: SALEEM Morphine Sulfate (Morphine Sulfate Immed Release 15 Mg Tablet) 15 mg PO Q4H PRN PRN Reason: Pain, Moderate(Pain Scale 4-6) Ondansetron HCl (Ondansetron Hcl 4 Mg/2 Ml Vial) 4 mg IVPUSH Q8H PRN PRN Reason: Nausea and Vomiting Pharmacy Consult (Consult Rx Perform Med Rec) 1 each MISCELLANE ONCE PRN PRN Reason: Consult order Pharmacy Consult (Consult Rx Vancomycin Dosing) 1 each MISCELLANE DAILY PRN PRN Reason: Consult order Polyethylene Glycol (Polyethylene Glycol 3350 17 Gm Powd.Pack) 17 gm PO DAILY PRN PRN Reason: Constipation Pregabalin (Pregabalin 75 Mg Capsule) 75 mg PO BID [facility] Last Admin: 05/06/23 07:50 Dose: 75 mg Documented By: SALEEM Sodium Chloride (0.9 % Sodium Chloride Flush 3 Ml Syringe) 3 ml IVFLUSH QSHIFT [facility] Last Admin: 05/06/23 15:19 Dose: 3 ml Documented By: SALEEM Sumatriptan Succinate (Sumatriptan Succinate 25 Mg Tablet) 25 mg PO DAILY MRX1 PRN PRN Reason: Migraine Headache Trazodone HCl (Trazodone Hcl 25 Mg Halftab) 25 mg PO BID [facility] Last Admin: 05/06/23 07:50 Dose: 25 mg Documented By: SALEEM Trazodone HCl (Trazodone Hcl 50 Mg Tablet) 50 mg PO BEDTIME [facility] Last Admin: 05/05/23 22:23 Dose: 50 mg Documented By: ANGEL Labs 05/06/23 06:58 05/06/23 06:58 Labs: Laboratory Results - last 24 hr 05/05/23 05/05/23 05/05/23 18:14 19:27 21:35 MCV MCH MCHC RDW Plt Count MPV Absolute Nucleated RBC Nucleated RBC % (auto) PT INR APTT D-Dimer High Sensitivty 1660 Anion Gap Estim Creat Clear Calc Estimated GFR POC Glucose 409 H* Random Glucose Lactic Acid 2.8 H* Lactic Acid F/U @ 2Hr Lactic Acid F/U @ 4Hr Calcium Total Bilirubin Direct Bilirubin AST ALT Alkaline Phosphatase Total Protein Albumin Respiratory Panel [place] Adenovirus (Rapid PCR) B.pert (TEM-PCR) B.parapertussis DNA PCR C. pneumoniae DNA (PCR) Coronavirus OC43 (PCR) Coronavirus HKU1 (PCR) Coronavirus 229E (PCR) COVID-19 ([facility]) COVID-19 Clin Com Coronavirus NL63 (PCR) Human Metapneumovir PCR Influenza A (RT-PCR) Influenza B (RT-PCR) M. pneumoniae (PCR) Parainfluenza 1 (PCR) Parainfluenza 2 (PCR) Parainfluenza 3 (PCR) Parainfluenza 4 (PCR) RSV (PCR) Entero/Rhino (PCR) SARS-CoV-2 RNA (RT-PCR) 05/05/23 05/05/23 05/05/23 21:35 22:08 23:59 MCV MCH MCHC RDW Plt Count MPV Absolute Nucleated RBC Nucleated RBC % (auto) PT INR APTT D-Dimer High Sensitivty Anion Gap Estim Creat Clear Calc Estimated GFR POC Glucose 466 H* Random Glucose Lactic Acid Lactic Acid F/U @ 2Hr 3.5 H* Lactic Acid F/U @ 4Hr 3.8 H* Calcium Total Bilirubin Direct Bilirubin AST ALT Alkaline Phosphatase Total Protein Albumin Respiratory Panel [place] Adenovirus (Rapid PCR) B.pert (TEM-PCR) B.parapertussis DNA PCR C. pneumoniae DNA (PCR) Coronavirus OC43 (PCR) Coronavirus HKU1 (PCR) Coronavirus 229E (PCR) COVID-19 ([facility]) COVID-19 Clin Com Coronavirus NL63 (PCR) Human Metapneumovir PCR Influenza A (RT-PCR) Influenza B (RT-PCR) M. pneumoniae (PCR) Parainfluenza 1 (PCR) Parainfluenza 2 (PCR) Parainfluenza 3 (PCR) Parainfluenza 4 (PCR) RSV (PCR) Entero/Rhino (PCR) SARS-CoV-2 RNA (RT-PCR) 05/06/23 05/06/23 05/06/23 00:02 01:54 03:09 MCV MCH MCHC RDW Plt Count MPV Absolute Nucleated RBC Nucleated RBC % (auto) PT 14.7 H INR 1.2 H APTT 22.1 L D-Dimer High Sensitivty Anion Gap Estim Creat Clear Calc Estimated GFR POC Glucose 425 H* 369 H* Random Glucose Lactic Acid Lactic Acid F/U @ 2Hr Lactic Acid F/U @ 4Hr Calcium Total Bilirubin Direct Bilirubin AST ALT Alkaline Phosphatase Total Protein Albumin Respiratory Panel [place] Adenovirus (Rapid PCR) B.pert (TEM-PCR) B.parapertussis DNA PCR C. pneumoniae DNA (PCR) Coronavirus OC43 (PCR) Coronavirus HKU1 (PCR) Coronavirus 229E (PCR) COVID-19 ([facility]) COVID-19 Clin Com Coronavirus NL63 (PCR) Human Metapneumovir PCR Influenza A (RT-PCR) Influenza B (RT-PCR) M. pneumoniae (PCR) Parainfluenza 1 (PCR) Parainfluenza 2 (PCR) Parainfluenza 3 (PCR) Parainfluenza 4 (PCR) RSV (PCR) Entero/Rhino (PCR) SARS-CoV-2 RNA (RT-PCR) 05/06/23 05/06/23 05/06/23 06:00 06:00 06:58 MCV 84.7 MCH 27.4 MCHC 32.3 RDW 12.6 Plt Count 187 D MPV 11.3 Absolute Nucleated RBC 0.000 Nucleated RBC % (auto) 0.0 PT INR APTT D-Dimer High Sensitivty Anion Gap Estim Creat Clear Calc Estimated GFR POC Glucose Random Glucose Lactic Acid Lactic Acid F/U @ 2Hr Lactic Acid F/U @ 4Hr Calcium Total Bilirubin Direct Bilirubin AST ALT Alkaline Phosphatase Total Protein Albumin Respiratory Panel [place] Adenovirus (Rapid PCR) Not Detected B.pert (TEM-PCR) Not Detected B.parapertussis DNA PCR Not Detected C. pneumoniae DNA (PCR) Not Detected Coronavirus OC43 (PCR) Not Detected Coronavirus HKU1 (PCR) Not Detected Coronavirus 229E (PCR) Not Detected COVID-19 ([facility]) Negative COVID-19 Clin Com See Note Coronavirus NL63 (PCR) Not Detected Human Metapneumovir PCR Not Detected Influenza A (RT-PCR) Not Detected Influenza B (RT-PCR) Not Detected M. pneumoniae (PCR) Not Detected Parainfluenza 1 (PCR) Not Detected Parainfluenza 2 (PCR) Not Detected Parainfluenza 3 (PCR) Not Detected Parainfluenza 4 (PCR) Not Detected RSV (PCR) Not Detected Entero/Rhino (PCR) Not Detected SARS-CoV-2 RNA (RT-PCR) Not Detected 05/06/23 05/06/23 05/06/23 06:58 07:24 11:14 MCV MCH MCHC RDW Plt Count MPV Absolute Nucleated RBC Nucleated RBC % (auto) PT INR APTT D-Dimer High Sensitivty Anion Gap 12 Estim Creat Clear Calc 100.3 Estimated GFR > 60 POC Glucose 295 H 250 H Random Glucose 334 H Lactic Acid Lactic Acid F/U @ 2Hr Lactic Acid F/U @ 4Hr Calcium 9.3 D Total Bilirubin 0.7 Direct Bilirubin 0.3 AST 18 ALT 49 H Alkaline Phosphatase 63 Total Protein 5.4 L Albumin 2.6 L Respiratory Panel [place] Adenovirus (Rapid PCR) B.pert (TEM-PCR) B.parapertussis DNA PCR C. pneumoniae DNA (PCR) Coronavirus OC43 (PCR) Coronavirus HKU1 (PCR) Coronavirus 229E (PCR) COVID-19 ([facility]) COVID-19 Clin Com Coronavirus NL63 (PCR) Human Metapneumovir PCR Influenza A (RT-PCR) Influenza B (RT-PCR) M. pneumoniae (PCR) Parainfluenza 1 (PCR) Parainfluenza 2 (PCR) Parainfluenza 3 (PCR) Parainfluenza 4 (PCR) RSV (PCR) Entero/Rhino (PCR) SARS-CoV-2 RNA (RT-PCR) 05/06/23 15:51 MCV MCH MCHC RDW Plt Count MPV Absolute Nucleated RBC Nucleated RBC % (auto) PT INR APTT D-Dimer High Sensitivty Anion Gap Estim Creat Clear Calc Estimated GFR POC Glucose 233 H Random Glucose Lactic Acid Lactic Acid F/U @ 2Hr Lactic Acid F/U @ 4Hr Calcium Total Bilirubin Direct Bilirubin AST ALT Alkaline Phosphatase Total Protein Albumin Respiratory Panel [place] Adenovirus (Rapid PCR) B.pert (TEM-PCR) B.parapertussis DNA PCR C. pneumoniae DNA (PCR) Coronavirus OC43 (PCR) Coronavirus HKU1 (PCR) Coronavirus 229E (PCR) COVID-19 ([facility]) COVID-19 Clin Com Coronavirus NL63 (PCR) Human Metapneumovir PCR Influenza A (RT-PCR) Influenza B (RT-PCR) M. pneumoniae (PCR) Parainfluenza 1 (PCR) Parainfluenza 2 (PCR) Parainfluenza 3 (PCR) Parainfluenza 4 (PCR) RSV (PCR) Entero/Rhino (PCR) SARS-CoV-2 RNA (RT-PCR) Microbiology Microbiology Results: Microbiology 05/05/23 09:57 Blood Culture - Preliminary Blood - Venous No growth after 24 hours. 05/05/23 09:43 Blood Culture - Preliminary Blood - Venous No growth after 24 hours. Assessment and Plan (1) Acute cholecystitis: Status: Acute (2) Sepsis: Status: Acute Plan 68-year-old female with a PMH significant for?CAD s/p stents, insulin-dependent diabetes type 2, HTN, HLD, osteoarthritis, home O2, and mood disorder who presents to the ED from SNF with nausea and vomiting x2 days.? Patient met in the hospital for treatment and further evaluation of sepsis in setting of gastroparesis versus acute cholecystitis. Sepsis Patient meets sepsis criteria:? WBC, tachycardia, tachypnea, lactic acidosis Unclear etiology: Gastroparesis versus acute cholecystitis, less likely viral gastritis CT of abdomen and pelvis showed cholelithiasis with prominent fundal gallbladder folds with patchy stranding of the pericholecystic fat with small perihepatic ascites Abdominal ultrasound found cholelithiasis without evidence for acute cholecystitis plan: res panel neg,send gi panel General surgery following-recommended IV abx and IVF, and NGT if N/V persists, will reassess in morning for possible cholecystectomy tube ABX:? Zosyn, started 05/05/2023,IVF: Lactated Ringer's,npo Tachycardia improving cta -neg Pulm embolism Continue metoprolol 50 mg ER p.o. Will monitor on telemetry acute Lactic acidosis-likely multifactorial( dehydration,hyperglycemia ) not due to sepsis Patient given IVF Insulin-dependent Diabetes type 2 Patient hypoglycemic at time of presentation:? POCs in the 400s Hold home meds Sliding-scale insulin,hold Lantus. Chronic back pain Continue home morphine Abnormal uterine bleeding Continue medroxyprogesterone Anxiety/depression Continue home meds Obesity class III possible due to calorie excess : Weight loss encouraged Full Code DVT Prophylaxis: Lovenox inpatient need :sepsis in the setting of gastroparesis versus acute cholecystitis- iv antiobiotics ,blood cultures pending Time Spent With Patient Time: Total time managing care of this patient today ____ minutes. Quality Stroke Does the patient have a stroke diagnosis?: No VTE Prior VTE?: No VTE Risk Level:: Medical - moderate - high VTE Device Contraindication: Treatment Not Indicated VTE Drug Contraindication: N/A - Med Ordered
[2023-05-06] MEDS: Enoxaparin Sodium 40 MG/0.4 ML SYRINGE SUBCUT (17:41)
--- NOTE | 2023-05-06 19:25 | PC.NURSE ---
IV R AC noted to be infiltrated. Unclear at what time IV infiltrated. Patient has gotten K+ and LR through IV. Area noted to be swollen, mild redness, and tender. IV removed, ice pack applied. Dr. Ruiz made aware. 1 hour post IV removal, area noted to have reduce swelling. Will continue to monitor.
[2023-05-06 19:56] LABS: Glucose, Whole Blood 210 mg/dL (60-115)
[2023-05-06] MEDS: traZODone HCL 50 MG TABLET PO (21:16)
[2023-05-06] MEDS: Atorvastatin Calcium 20 MG TABLET PO (21:16)
[2023-05-06] MEDS: LORazepam 0.5 MG TABLET PO (21:16)
[2023-05-07] VITALS (7 sets, daily range): BP systolic 148–184; BP diastolic 58–92; PULSE 89–112; RESP 17–20; TEMP 36.1–37.4; O2SAT 98–100
[2023-05-07] MEDS: Piperacillin Sodium/Tazobactam 3.375 GM in 0.9 % Sodium Chloride 50 ML IV ×4 (03:11→21:43)
[2023-05-07 07:22] LABS: Glucose, Whole Blood 222 mg/dL (60-115)
--- NOTE | 2023-05-07 08:03 | PM.PNGS ---
Subjective Subjective Date of Service: 05/07/23 Interval history: Continues to feel lousy . Tired. Does not think she has improved since admission. Denies further nausea or any abdominal pain. Physical Exam Vital Signs: Vital Signs: Last Vital Signs Temp 97.4 F 05/07/23 07:19 Pulse 109 H 05/07/23 07:19 Resp 20 05/07/23 07:19 BP 175/80 H 05/07/23 07:19 Pulse Ox 98 05/07/23 07:19 O2 Del Method Nasal Cannula 05/07/23 07:19 O2 Flow Rate 2 05/07/23 07:19 Oxygen Flow Rate 4 05/05/23 09:31 BMI result Body Mass Index 40.1 Const: General: comfortable, no acute distress and alert Orientation/consciousness: patient oriented x3 Resp: Effort & Inspection: normal respiratory effort GI: Inspection: No distended and Yes obesity Palpation (GI): Soft to palpation and Tenderness to palpation present (GI) in the epigastrum and in the RUQ; Pena's sign negative Skin: General skin exam: no rashes or lesions noted and no jaundice Neuro: General: patient oriented x3 and moves all extremities Objective Data Active Medications Acetaminophen (Acetaminophen 325 Mg Tablet) 650 mg PO Q6H PRN PRN Reason: Pain, Mild (Pain Scale 1-3) Last Admin: 05/05/23 22:40 Dose: 650 mg Documented By: ANGEL Al Hydroxide/Mg Hydroxide (Magnesium Hydrox/Alum Hydrox 30 Ml Oral.Susp) 30 ml PO Q6H PRN PRN Reason: Heartburn Albuterol Sulfate (Albuterol Sulfate (0.042%) 1.25 Mg/3 Ml Vial.Neb) 0.63 mg INHALE Q4H PRN PRN Reason: Congestion Atorvastatin Calcium (Atorvastatin Calcium 20 Mg Tablet) 20 mg PO BEDTIME [facility] Last Admin: 05/06/23 21:16 Dose: 20 mg Documented By: BOB Bisacodyl (Bisacodyl 10 Mg Supp.Rect) 10 mg MD DAILY PRN PRN Reason: Constipation Dextrose (Dextrose 50 % 25 Gm/50 Ml Syringe) 25 gm IVPUSH Q15M PRN; Protocol PRN Reason: per Hypoglycemia Standing Ord. Docusate Sodium (Docusate Sodium 100 Mg Capsule) 100 mg PO DAILY PRN PRN Reason: Constipation Duloxetine HCl (Duloxetine Hcl 20 Mg Capsule.) 20 mg PO DAILY ON [facility] OF [facility] Last Admin: 05/06/23 07:49 Dose: 20 mg Documented By: SALEEM Duloxetine HCl (Duloxetine Hcl 60 Mg Capsule.) 60 mg PO DAILY ON [facility] OF [facility] Last Admin: 05/06/23 07:49 Dose: 60 mg Documented By: SALEEM Enoxaparin Sodium (Enoxaparin Sodium 40 Mg/0.4 Ml Syringe) 40 mg SUBCUT Q24H [facility] Last Admin: 05/06/23 17:41 Dose: 40 mg Documented By: SALEEM Furosemide (Furosemide 20 Mg Tablet) 20 mg PO DAILY [facility]; Protocol Last Admin: 05/06/23 07:49 Dose: 20 mg Documented By: SALEEM Glucose (Glucose Gel 15 Gm Gel..Gram.) 15 gm PO Q15M PRN; Protocol PRN Reason: per Hypoglycemia Standing Ord. Lactated Ringer's (Lr) 1,000 mls @ 100 mls/hr IVCONT .Q10H ON LICENSE OF [facility] Last Admin: 05/06/23 21:16 Dose: 100 mls/hr Documented By: BOB Vancomycin HCl 750 mg/ Sodium (Chloride) 265 mls @ 265 mls/hr IV Q12H ON [facility] OF [facility] Last Infusion: 05/07/23 00:49 Dose: 0 mls/hr Documented By: BOB Piperacillin Sod/Tazobactam (Sod 3.375 gm/ Sodium Chloride) 50 mls @ 100 mls/hr IV Q6H ON [facility] OF [facility] Last Infusion: 05/07/23 03:47 Dose: 0 mls/hr Documented By: BOB Insulin Glargine (Insulin Glargine,Hum.Rec.Anlog 100 Unit/Ml 10 Ml Vial) 50 unit SUBCUT BEDTIME ON [facility] OF [facility] Last Admin: 05/05/23 19:01 Dose: 50 unit Documented By: DARYL Insulin Glargine (Insulin Glargine,Hum.Rec.Anlog 100 Unit/Ml 10 Ml Vial) 50 unit SUBCUT DAILY ON [facility] OF [facility] Last Admin: 05/06/23 09:01 Dose: Not Given Documented By: SALEEM Non-Admin Reason: Physician Held Med Insulin Human Lispro (Insulin Lispro 100 Unit/Ml 3 Ml Vial) 0 unit SUBCUT QIDACHS ON LICENSE OF [facility]; Protocol Last Admin: 05/06/23 21:16 Dose: 4 unit Documented By: BOB Lorazepam (Lorazepam 0.5 Mg Tablet) 0.5 mg PO DAILY PRN PRN Reason: Anxiety Lorazepam (Lorazepam 0.5 Mg Tablet) 0.5 mg PO BEDTIME ON [facility] Last Admin: 05/06/23 21:16 Dose: 0.5 mg Documented By: BOB Magnesium Oxide (Magnesium Oxide 400 Mg Tablet) 400 mg PO BID ON [facility] OF [facility] Last Admin: 05/06/23 21:16 Dose: 400 mg Documented By: BOB Medroxyprogesterone Acetate (Medroxyprogesterone Acetate 5 Mg Tablet) 20 mg PO BID ON [facility] OF [facility] Last Admin: 05/06/23 21:15 Dose: 20 mg Documented By: BOB Metoprolol Succinate (Metoprolol Succinate Er 50 Mg Tab.Er.24h) 50 mg PO DAILY [facility]; Protocol Last Admin: 05/06/23 07:49 Dose: 50 mg Documented By: SALEEM Morphine Sulfate (Morphine Sulfate Immed Release 15 Mg Tablet) 15 mg PO Q4H PRN PRN Reason: Pain, Moderate(Pain Scale 4-6) Ondansetron HCl (Ondansetron Hcl 4 Mg/2 Ml Vial) 4 mg IVPUSH Q8H PRN PRN Reason: Nausea and Vomiting Pharmacy Consult (Consult Rx Perform Med Rec) 1 each MISCELLANE ONCE PRN PRN Reason: Consult order Pharmacy Consult (Consult Rx Vancomycin Dosing) 1 each MISCELLANE DAILY PRN PRN Reason: Consult order Polyethylene Glycol (Polyethylene Glycol 3350 17 Gm Powd.Pack) 17 gm PO DAILY PRN PRN Reason: Constipation Pregabalin (Pregabalin 75 Mg Capsule) 75 mg PO BID ON LICENSE OF [facility] Last Admin: 05/06/23 21:16 Dose: 75 mg Documented By: BOB Sodium Chloride (0.9 % Sodium Chloride Flush 3 Ml Syringe) 3 ml IVFLUSH QSHIFT ON LICENSE OF [facility] Last Admin: 05/06/23 21:17 Dose: 3 ml Documented By: BOB Sumatriptan Succinate (Sumatriptan Succinate 25 Mg Tablet) 25 mg PO DAILY MRX1 PRN PRN Reason: Migraine Headache Trazodone HCl (Trazodone Hcl 25 Mg Halftab) 25 mg PO BID ON LICENSE OF [facility] Last Admin: 05/06/23 21:16 Dose: 25 mg Documented By: BOB Trazodone HCl (Trazodone Hcl 50 Mg Tablet) 50 mg PO BEDTIME ON LICENSE OF [facility] Last Admin: 05/06/23 21:16 Dose: 50 mg Documented By: BOB Labs 05/06/23 06:58 05/06/23 06:58 Labs: Laboratory Results - last 24 hr 05/06/23 05/06/23 05/06/23 06:00 06:58 11:14 Anion Gap 12 Estim Creat Clear Calc 100.3 Estimated GFR > 60 POC Glucose 250 H Random Glucose 334 H Calcium 9.3 D Total Bilirubin 0.7 Direct Bilirubin 0.3 AST 18 ALT 49 H Alkaline Phosphatase 63 Total Protein 5.4 L Albumin 2.6 L Respiratory Panel [place] Adenovirus (Rapid PCR) Not Detected B.pert (TEM-PCR) Not Detected B.parapertussis DNA PCR Not Detected C. pneumoniae DNA (PCR) Not Detected Coronavirus OC43 (PCR) Not Detected Coronavirus HKU1 (PCR) Not Detected Coronavirus 229E (PCR) Not Detected Coronavirus NL63 (PCR) Not Detected Human Metapneumovir PCR Not Detected Influenza A (RT-PCR) Not Detected Influenza B (RT-PCR) Not Detected M. pneumoniae (PCR) Not Detected Parainfluenza 1 (PCR) Not Detected Parainfluenza 2 (PCR) Not Detected Parainfluenza 3 (PCR) Not Detected Parainfluenza 4 (PCR) Not Detected RSV (PCR) Not Detected Entero/Rhino (PCR) Not Detected SARS-CoV-2 RNA (RT-PCR) Not Detected 05/06/23 05/06/23 05/07/23 15:51 19:48 07:18 Anion Gap Estim Creat Clear Calc Estimated GFR POC Glucose 233 H 210 H 222 H Random Glucose Calcium Total Bilirubin Direct Bilirubin AST ALT Alkaline Phosphatase Total Protein Albumin Respiratory Panel [place] Adenovirus (Rapid PCR) B.pert (TEM-PCR) B.parapertussis DNA PCR C. pneumoniae DNA (PCR) Coronavirus OC43 (PCR) Coronavirus HKU1 (PCR) Coronavirus 229E (PCR) Coronavirus NL63 (PCR) Human Metapneumovir PCR Influenza A (RT-PCR) Influenza B (RT-PCR) M. pneumoniae (PCR) Parainfluenza 1 (PCR) Parainfluenza 2 (PCR) Parainfluenza 3 (PCR) Parainfluenza 4 (PCR) RSV (PCR) Entero/Rhino (PCR) SARS-CoV-2 RNA (RT-PCR) Microbiology Microbiology Results: Microbiology 05/05/23 09:57 Blood Culture - Preliminary Blood - Venous No growth after 24 hours. 05/05/23 09:43 Blood Culture - Preliminary Blood - Venous No growth after 24 hours. Procedures Date of Service Date of Service: 05/07/23 Progress Note: A&P Assessment and plan (1) Acute cholecystitis: Status: Acute Plan Persistently tachycardic, remains tender in the RUQ without improvement. Will order CT guided drainage for cholecystostomy tube today. Cont IV abx. Time Spent With Patient Time: Total time managing care of this patient today ____ minutes. Quality Stroke Does the patient have a stroke diagnosis?: No VTE Prior VTE?: No VTE Risk Level:: Medical - moderate - high VTE Device Contraindication: Treatment Not Indicated VTE Drug Contraindication: N/A - Med Ordered
[2023-05-07] MEDS: DULoxetine HCl 20 MG CAPSULE.DR PO (08:22)
[2023-05-07] MEDS: Acetaminophen 325 MG TABLET 650 MG PO (08:22)
[2023-05-07] MEDS: medroxyPROGESTERone Acetate 5 MG TABLET 20 MG PO ×2 (08:22→21:44)
[2023-05-07] MEDS: Pregabalin 75 MG CAPSULE PO ×2 (08:23→21:45)
[2023-05-07] MEDS: Furosemide 20 MG TABLET PO (08:23)
[2023-05-07] MEDS: traZODone HCL 25 MG HALFTAB PO ×2 (08:23→21:45)
[2023-05-07] MEDS: DULoxetine HCl 60 MG CAPSULE.DR PO (08:23)
[2023-05-07] MEDS: 0.9 % Sodium Chloride Flush 3 ML SYRINGE IVFLUSH ×3 (08:23→21:45)
[2023-05-07] MEDS: Magnesium Oxide 400 MG TABLET PO ×2 (08:23→21:45)
[2023-05-07] MEDS: Insulin Lispro 100 UNIT/ML 3 ML VIAL SUBCUT ×3 (08:26→21:44)
[2023-05-07] MEDS: Lactated Ringers 1,000 ML 80 ML IVCONT (08:26)
[2023-05-07] MEDS: carvediloL 12.5 MG TABLET PO ×2 (08:38→21:45)
[2023-05-07 09:46] LABS: Hematocrit 36.6 % (37.0-47.0); Hemoglobin 12.3 g/dl (12.0-16.0); Mean Corpuscular HGB Conc 33.6 g/dl (31.0-35.0); Mean Corpuscular Hemoglobin 27.5 pg (27.0-33.0); Mean Corpuscular Volume 81.7 fL (80.0-98.0); Mean Platelet Volume 10.7 fL (9.4-12.3); Platelet Count 182 X10*3/uL (160-400); Red Blood Count 4.48 X10*6/uL (4.20-5.50); Red Cell Distribution Width 12.1 % (11.0-16.0); White Blood Count 10.1 X10*3/uL (4.8-10.8)
[2023-05-07 09:51] LABS: INTERNATIONAL NORM RATIO 1.2 (0.9-1.1)
[2023-05-07 10:06] LABS: Creatinine Clr Calc Pharmacy 114.6; Estimated Glomerular Filt Rate > 60
[2023-05-07 10:12] LABS: Vancomycin Trough 7.3 mcg/mL (10.0-20.0)
[2023-05-07 10:13] LABS: Anion Gap 11 (12-20); Blood Urea Nitrogen 9 mg/dL (9-16); Calcium 9.4 mg/dL (8.4-10.2); Carbon Dioxide 25 mmol/L (22-29); Chloride 101 mmol/L (96-108); Creatinine Clr Calc Pharmacy 116.5; Estimated Glomerular Filt Rate > 60; Glucose Random 255 mg/dL (60-115); Potassium 3.4 mmol/L (3.3-5.1); Sodium 134 mmol/L (135-145)
--- NOTE | 2023-05-07 10:26 | PC.NURSE ---
patient down to IR at this time with civil transportation engineer
--- NOTE | 2023-05-07 10:59 | HE.PHANOTE ---
Addendum entered by Julia Hinojosa [facility] 05/07/23 11:03: RXinisight was missing some information. Dose now changed to 1000 Q8H. next level remains the same. PRedicted AUC 502 Original Note: RE: VANCO Patients level came back this morning at 7.3. Will increase dose to 1000 Q12H. Next level 05/08 @0900. Predicted AUC 540
[2023-05-07 11:57] LABS: Glucose, Whole Blood 241 mg/dL (60-115)
--- NOTE | 2023-05-07 12:36 | MHC.CM.PN ---
EMR reviewed and per MD rounds, pt is not medically cleared for D/C today and is awaiting a CT guided drainage for cholecystostomy tube today. CM will continue to follow.
--- NOTE | 2023-05-07 14:01 | P.CDIM_ITS ---
PROVIDER RESPONSE TEXT: To clarify, the appropriate diagnosis supported by the clinical indicators: Chronic respiratory failure O2 dependent QUERY TEXT: PHYSICIAN'S DOCUMENTATION REQUEST Date of Query: 05/07/2023 08:32 AM EDT Patient Name: Talya Emanuel Admit Date: 05/05/2023 Dear Mily Ruiz, A review of the medical record indicates additional documentation may be needed. Please review below and update the documentation accordingly. Clinical Indicators: ED: PMH- Chronic respiratory disease H&P: Home oxygen RR 21 on 4 liters [place] Possible options might include: Chronic respiratory failure O2 dependent Acute on chronic respiratory failure Other please specify Other (explain)Clinically unable to determine (explain)Thank you, Trudy Almanza, CCS, CDIS Use of terms such as suspected, likely, concern for, or probable (associated with a specific diagnosi s that is being evaluated, monitored, or treated as if it exists) are acceptable and can be coded in the inpatient se tting, when documented at the time of discharge. Please use your independent medical judgment in providing your response. THIS QUERY IS PART OF THE PERMANENT MEDICAL RECORD
--- NOTE | 2023-05-07 15:10 | P.PNIM_ITS ---
Subjective Subjective Date of Service: 05/07/23 Interval History: choleycystitis Review of Systems has one episode of nausea/vomitin no fevers tachycardia improving Physical Exam Vital Signs: Vital Signs: Last Vital Signs Temp 97.0 F 05/07/23 11:58 Pulse 100 05/07/23 11:58 Resp 20 05/07/23 11:58 BP 180/92 H 05/07/23 11:58 Pulse Ox 100 05/07/23 11:58 O2 Del Method Nasal Cannula 05/07/23 11:58 O2 Flow Rate 2 05/07/23 11:58 Oxygen Flow Rate 4 05/05/23 09:31 BMI result Body Mass Index 40.1 Appearance: Alert.? Oriented X3.? not in distress.? cvs: rrr, [id number] . res: clear to auscultation ,no rhonchii or wheezing abd: no rebound or guarding ,mild discomfort in epigastric/ruq area, bs present. ext pulses present , no cyanosis. neuro: axo3 , nonfocal. Objective Data Active Medications Acetaminophen (Acetaminophen 325 Mg Tablet) 650 mg PO Q6H PRN PRN Reason: Pain, Mild (Pain Scale 1-3) Last Admin: 05/07/23 08:22 Dose: 650 mg Documented By: VALERIE Al Hydroxide/Mg Hydroxide (Magnesium Hydrox/Alum Hydrox 30 Ml Oral.Susp) 30 ml PO Q6H PRN PRN Reason: Heartburn Albuterol Sulfate (Albuterol Sulfate (0.042%) 1.25 Mg/3 Ml Vial.Neb) 0.63 mg INHALE Q4H PRN PRN Reason: Congestion Atorvastatin Calcium (Atorvastatin Calcium 20 Mg Tablet) 20 mg PO BEDTIME [facility] Last Admin: 05/06/23 21:16 Dose: 20 mg Documented By: BOB Bisacodyl (Bisacodyl 10 Mg Supp.Rect) 10 mg [place] DAILY PRN PRN Reason: Constipation Carvedilol (Carvedilol 12.5 Mg Tablet) 12.5 mg PO BID [facility]; Protocol Last Admin: 05/07/23 08:38 Dose: 12.5 mg Documented By: VALERIE Dextrose (Dextrose 50 % 25 Gm/50 Ml Syringe) 25 gm IVPUSH Q15M PRN; Protocol PRN Reason: per Hypoglycemia Standing Ord. Docusate Sodium (Docusate Sodium 100 Mg Capsule) 100 mg PO DAILY PRN PRN Reason: Constipation Duloxetine HCl (Duloxetine Hcl 20 Mg Capsule.) 20 mg PO DAILY [facility] Last Admin: 05/07/23 08:22 Dose: 20 mg Documented By: VALERIE Duloxetine HCl (Duloxetine Hcl 60 Mg Capsule.) 60 mg PO DAILY [facility] Last Admin: 05/07/23 08:23 Dose: 60 mg Documented By: VALERIE Enoxaparin Sodium (Enoxaparin Sodium 40 Mg/0.4 Ml Syringe) 40 mg SUBCUT Q24H [facility] Last Admin: 05/06/23 17:41 Dose: 40 mg Documented By: SALEEM Furosemide (Furosemide 20 Mg Tablet) 20 mg PO DAILY [facility]; Protocol Last Admin: 05/07/23 08:23 Dose: 20 mg Documented By: VALERIE Glucose (Glucose Gel 15 Gm Gel..Gram.) 15 gm PO Q15M PRN; Protocol PRN Reason: per Hypoglycemia Standing Ord. Lactated Ringer's (Lr) 1,000 mls @ 80 mls/hr IVCONT .[id number] [facility] Last Infusion: 05/07/23 08:21 Dose: 0 mls/hr Documented By: VALERIE Piperacillin Sod/Tazobactam (Sod 3.375 gm/ Sodium Chloride) 50 mls @ 100 mls/hr IV Q6H [facility] Last Infusion: 05/07/23 10:26 Dose: 0 mls/hr Documented By: VALERIE Vancomycin HCl 1,000 mg/ (Sodium Chloride) 270 mls @ 270 mls/hr IV Q8H [facility] Insulin Glargine (Insulin Glargine,Hum.Rec.Anlog 100 Unit/Ml 10 Ml Vial) 50 unit SUBCUT BEDTIME [facility] Last Admin: 05/05/23 19:01 Dose: 50 unit Documented By: DARYL Insulin Glargine (Insulin Glargine,Hum.Rec.Anlog 100 Unit/Ml 10 Ml Vial) 50 unit SUBCUT DAILY [facility] Last Admin: 05/06/23 09:01 Dose: Not Given Documented By: SALEEM Non-Admin Reason: Physician Held Med Insulin Human Lispro (Insulin Lispro 100 Unit/Ml 3 Ml Vial) 0 unit SUBCUT QIDACHS [facility]; Protocol Last Admin: 05/07/23 12:11 Dose: Not Given Documented By: VALERIE Non-Admin Reason: NPO Lorazepam (Lorazepam 0.5 Mg Tablet) 0.5 mg PO DAILY PRN PRN Reason: Anxiety Lorazepam (Lorazepam 0.5 Mg Tablet) 0.5 mg PO BEDTIME [facility] Last Admin: 05/06/23 21:16 Dose: 0.5 mg Documented By: BOB Magnesium Oxide (Magnesium Oxide 400 Mg Tablet) 400 mg PO BID [facility] Last Admin: 05/07/23 08:23 Dose: 400 mg Documented By: VALERIE Medroxyprogesterone Acetate (Medroxyprogesterone Acetate 5 Mg Tablet) 20 mg PO BID [facility] Last Admin: 05/07/23 08:22 Dose: 20 mg Documented By: VALERIE Morphine Sulfate (Morphine Sulfate Immed Release 15 Mg Tablet) 15 mg PO Q4H PRN PRN Reason: Pain, Moderate(Pain Scale 4-6) Ondansetron HCl (Ondansetron Hcl 4 Mg/2 Ml Vial) 4 mg IVPUSH Q8H PRN PRN Reason: Nausea and Vomiting Pharmacy Consult (Consult Rx Perform Med Rec) 1 each MISCELLANE ONCE PRN PRN Reason: Consult order Pharmacy Consult (Consult Rx Vancomycin Dosing) 1 each MISCELLANE DAILY PRN PRN Reason: Consult order Polyethylene Glycol (Polyethylene Glycol 3350 17 Gm Powd.Pack) 17 gm PO DAILY PRN PRN Reason: Constipation Pregabalin (Pregabalin 75 Mg Capsule) 75 mg PO BID [facility] Last Admin: 05/07/23 08:23 Dose: 75 mg Documented By: VALERIE Sodium Chloride (0.9 % Sodium Chloride Flush 3 Ml Syringe) 3 ml IVFLUSH QSHIFT [facility] Last Admin: 05/07/23 08:23 Dose: 3 ml Documented By: VALERIE Sumatriptan Succinate (Sumatriptan Succinate 25 Mg Tablet) 25 mg PO DAILY MRX1 PRN PRN Reason: Migraine Headache Trazodone HCl (Trazodone Hcl 25 Mg Halftab) 25 mg PO BID [facility] Last Admin: 05/07/23 08:23 Dose: 25 mg Documented By: HO.N-RIVLA Trazodone HCl (Trazodone Hcl 50 Mg Tablet) 50 mg PO BEDTIME [facility] Last Admin: 05/06/23 21:16 Dose: 50 mg Documented By: BOB Labs 05/07/23 09:18 05/07/23 09:18 Labs: Laboratory Results - last 24 hr 05/06/23 05/06/23 05/07/23 15:51 19:48 07:18 MCV MCH MCHC RDW Plt Count MPV Absolute Nucleated RBC Nucleated RBC % (auto) PT INR Anion Gap Estim Creat Clear Calc Estimated GFR POC Glucose 233 H 210 H 222 H Random Glucose Calcium Vancomycin Trough 05/07/23 05/07/23 05/07/23 09:18 09:18 09:18 MCV 81.7 MCH 27.5 MCHC 33.6 RDW 12.1 Plt Count 182 MPV 10.7 Absolute Nucleated RBC 0.000 Nucleated RBC % (auto) 0.0 PT INR Anion Gap 11 L Estim Creat Clear Calc 116.5 Estimated GFR > 60 POC Glucose Random Glucose 255 H Calcium 9.4 Vancomycin Trough 7.3 L 05/07/23 05/07/23 05/07/23 09:18 09:18 11:53 MCV MCH MCHC RDW Plt Count MPV Absolute Nucleated RBC Nucleated RBC % (auto) PT 14.0 H INR 1.2 H Anion Gap Estim Creat Clear Calc 114.6 Estimated GFR > 60 POC Glucose 241 H Random Glucose Calcium Vancomycin Trough Microbiology Microbiology Results: Microbiology 05/05/23 09:57 Blood Culture - Preliminary Blood - Venous No growth after 48 hours. 05/05/23 09:43 Blood Culture - Preliminary Blood - Venous No growth after 48 hours. Assessment and Plan (1) Acute cholecystitis: Status: Acute (2) Sepsis: Status: Acute Plan 68-year-old female with a PMH significant for?CAD s/p stents, insulin-dependent diabetes type 2, HTN, HLD, osteoarthritis, home O2, and mood disorder who presents to the ED from SNF with nausea and vomiting x2 days.? Patient met in the hospital for treatment and further evaluation of sepsis in setting of gastr oparesis versus acute cholecystitis. Sepsis Unclear etiology: possible acute cholecystitis sepsis criteria:? WBC, tachycardia, tachypnea improving CT of abdomen and pelvis showed cholelithiasis with prominent fundal gallbladder folds with patchy stranding of the pericholecystic fat with small perihepatic ascites Abdominal ultrasound found cholelithiasis without evidence for acute cho lecystitis plan: res panel neg,send gi panel once have stool available General surgery following-recommended IV abx and IVF, and NGT if N/V persists, sepsis criteria:? WBC, tachycardia, tachypnea improving tube-still has ruq pain/nausea /vomitin. ct abd and hida scan done-reviewed by surgery -recomended to start clear liquids and moniter since patient symptoms improving,hence cholecystostomy ca ncelled . ABX:? Zosyn, started 05/05/2023,IVF: Lactated Ringer's,npo,will add prn reglan if needed. Tachycardia improving with bb and hydration cta -neg Pulm embolism metoprolol switched to coreg due to elevated bp/tachycarbia. Will monitor on telemetry acute Lactic acidosis-likely multifactorial( dehydration,hyperglycemia ) not due to sepsis Patient given IVF Insulin-dependent Diabetes type 2 Patient hypoglycemic at time of presentation:? POCs in the 400s Hold home meds Sliding-scale insulin,hold Lantus. Chronic back pain Continue home morphine Abnormal uterine bleeding Continue medroxyprogesterone Anxiety/depression Continue home meds Obesity class III possible due to calorie excess : Weight loss encouraged ch respiratory failure :on oxygen as per NH. Full Code DVT Prophylaxis: Lovenox inpatient need :sepsis in the setting of gastroparesis versus acute cholecystiti s- iv antiobiotics ,blood cultures pending Time Spent With Patient Time: Total time managing care of this patient today ____ minutes. Quality Stroke Does the patient have a stroke diagnosis?: No VTE Prior VTE?: No VTE Risk Level:: Medical - moderate - high VTE Device Contraindication: Treatment Not Indicated VTE Drug Contraindication: N/A - Med Ordered
--- NOTE | 2023-05-07 15:34 | PM.EVENT ---
Event Note Date of Service: 05/07/23 Event Note: HIDA reviewed with Dr Alphonso PLAZA is visualizing alos, images show contracted not acute cholecysititis no need for cholecystostomy tube pt clinically doing well Time Spent With Patient Time: Total time managing care of this patient today ____ minutes.
[2023-05-07 15:48] LABS: Glucose, Whole Blood 250 mg/dL (60-115)
[2023-05-07] MEDS: Labetalol HCL 100 MG/20 ML VIAL 10 MG IVPUSH (16:08)
[2023-05-07] MEDS: Enoxaparin Sodium 40 MG/0.4 ML SYRINGE SUBCUT (16:10)
--- NOTE | 2023-05-07 18:57 | P.CDIM_ITS ---
PROVIDER RESPONSE TEXT: To clarify, the appropriate diagnosis supported by the clinical indicators: Morbid obesity QUERY TEXT: PHYSICIAN'S DOCUMENTATION REQUEST Date of Query: 05/07/2023 08:34 AM EDT Patient Name: Talya Emanuel Admit Date: 05/05/2023 Dear Mily Ruiz, A review of the medical record indicates additional documentation may be needed. Please review below and update the documentation accordingly. Clinical Indicators: PN: Obesity class III BMI 40.1 119.6kg If possible, please provide an associated diagnosis related to the abnormal BMI, such as: Morbid obesity Obesity Due to other cause Specify the other cause Other (explain)Clinically unable to determine (explain)Thank you, Trudy Almanza, CCS, CDIS Use of terms such as suspected, likely, concern for, or probable (associated with a specific diagnosi s that is being evaluated, monitored, or treated as if it exists) are acceptable and can be coded in the inpatient se tting, when documented at the time of discharge. Please use your independent medical judgment in providing your response. THIS QUERY IS PART OF THE PERMANENT MEDICAL RECORD
[2023-05-07 19:55] LABS: Glucose, Whole Blood 273 mg/dL (60-115)
[2023-05-07] MEDS: LORazepam 0.5 MG TABLET PO (21:44)
[2023-05-07] MEDS: Atorvastatin Calcium 20 MG TABLET PO (21:45)
[2023-05-07] MEDS: traZODone HCL 50 MG TABLET PO (21:45)
[2023-05-08] MEDS: Piperacillin Sodium/Tazobactam 3.375 GM in 0.9 % Sodium Chloride 50 ML IV ×2 (02:56→07:57)
[2023-05-08 03:03] VITALS: BP 168/75; PULSE 103; RESP 20; TEMP 36.9; O2SAT 99
[2023-05-08 06:56] LABS: Vancomycin Random 2.3 mcg/mL (15-20)
[2023-05-08 06:58] LABS: Anion Gap 11 (12-20); Blood Urea Nitrogen 8 mg/dL (9-16); Calcium 9.4 mg/dL (8.4-10.2); Carbon Dioxide 26 mmol/L (22-29); Chloride 99 mmol/L (96-108); Creatinine Clr Calc Pharmacy 122.4; Estimated Glomerular Filt Rate > 60; Glucose Random 288 mg/dL (60-115); Potassium 3.4 mmol/L (3.3-5.1); Sodium 133 mmol/L (135-145)
[2023-05-08 07:09] LABS: Glucose, Whole Blood 269 mg/dL (60-115)
[2023-05-08 07:30] VITALS: BP 180/80; PULSE 98; RESP 20; TEMP 36.8; O2SAT 98
[2023-05-08] MEDS: Pregabalin 75 MG CAPSULE PO ×2 (07:55→21:12)
[2023-05-08] MEDS: DULoxetine HCl 20 MG CAPSULE.DR PO (07:55)
[2023-05-08] MEDS: DULoxetine HCl 60 MG CAPSULE.DR PO (07:56)
[2023-05-08] MEDS: Furosemide 20 MG TABLET PO (07:56)
[2023-05-08] MEDS: traZODone HCL 25 MG HALFTAB PO ×2 (07:56→21:12)
[2023-05-08] MEDS: Insulin Lispro 100 UNIT/ML 3 ML VIAL SUBCUT ×4 (07:56→21:12)
[2023-05-08] MEDS: medroxyPROGESTERone Acetate 5 MG TABLET 20 MG PO ×2 (07:56→21:11)
[2023-05-08] MEDS: carvediloL 12.5 MG TABLET PO ×2 (07:56→13:32)
[2023-05-08] MEDS: Magnesium Oxide 400 MG TABLET PO ×2 (07:56→21:11)
[2023-05-08] MEDS: 0.9 % Sodium Chloride Flush 3 ML SYRINGE IVFLUSH ×3 (07:57→21:12)
[2023-05-08 10:57] LABS: Glucose, Whole Blood 252 mg/dL (60-115)
[2023-05-08 11:18] VITALS: BP 180/70; PULSE 102; RESP 20; TEMP 37.2; O2SAT 97
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
[2023-05-08 15:44] VITALS: BP 160/80; O2SAT 97
[2023-05-08 16:37] LABS: Glucose, Whole Blood 295 mg/dL (60-115)
[2023-05-08] MEDS: Enoxaparin Sodium 40 MG/0.4 ML SYRINGE SUBCUT (17:19)
[2023-05-08 19:45] VITALS: BP 180/80; PULSE 99; RESP 22; TEMP 37.6; O2SAT 98
[2023-05-08 19:59] LABS: Glucose, Whole Blood 342 mg/dL (60-115)
[2023-05-08] MEDS: Atorvastatin Calcium 20 MG TABLET PO (21:11)
[2023-05-08] MEDS: carvediloL 12.5 MG TABLET 25 MG PO (21:11)
[2023-05-08] MEDS: LORazepam 0.5 MG TABLET PO (21:12)
[2023-05-08] MEDS: traZODone HCL 50 MG TABLET PO (21:12)
[2023-05-09] VITALS: BP 164/40; PULSE 96; RESP 20; TEMP 36.9; O2SAT 97
[2023-05-09 04:00] VITALS: BP 168/72; PULSE 86; RESP 19; TEMP 36.4; O2SAT 96
[2023-05-09 07:04] LABS: Glucose, Whole Blood 334 mg/dL (60-115)
[2023-05-09 07:28] VITALS: BP 160/70; PULSE 82; RESP 20; TEMP 37.2; O2SAT 98
[2023-05-09 07:47] LABS: Creatinine Clr Calc Pharmacy 128.9; Estimated Glomerular Filt Rate > 60
[2023-05-09] MEDS: Pregabalin 75 MG CAPSULE PO (08:28)
[2023-05-09] MEDS: medroxyPROGESTERone Acetate 5 MG TABLET 20 MG PO (08:28)
[2023-05-09] MEDS: 0.9 % Sodium Chloride Flush 3 ML SYRINGE IVFLUSH (08:28)
[2023-05-09] MEDS: Magnesium Oxide 400 MG TABLET PO (08:29)
[2023-05-09] MEDS: DULoxetine HCl 20 MG CAPSULE.DR PO (08:29)
[2023-05-09] MEDS: DULoxetine HCl 60 MG CAPSULE.DR PO (08:29)
[2023-05-09] MEDS: Furosemide 20 MG TABLET PO (08:29)
[2023-05-09] MEDS: carvediloL 12.5 MG TABLET 25 MG PO (08:29)
[2023-05-09] MEDS: Insulin Lispro 100 UNIT/ML 3 ML VIAL SUBCUT ×3 (08:29→17:08)
[2023-05-09] MEDS: traZODone HCL 25 MG HALFTAB PO (08:29)
[2023-05-09] MEDS: Insulin Glargine,Hum.rec.anlog 100 UNIT/ML 10 ML VIAL 10 UNIT SUBCUT (08:31)
--- NOTE | 2023-05-09 10:49 | PM.GICN ---
History of Present Illness Data of Consult Service Date: 05/09/23 Requesting physician: Mily Ruiz Primary Care Provider: Lo Presley MD [facility] Reason for consult: ? gastroparesis, dilated stomach on CT scan 68 YF with CAD s/p stents, insulin-dependent diabetes type 2, HTN, HLD, osteoarthritis, chronic back pain, home O2, morbid obesity and mood disorder admitted to [facility] on 05/05/23 from SNF with 2 day hx of nausea and vomiting.? Patient has been a resident at an SNF for the past 7 years, though she is unsure why she initially went there.? Patient is nonambulatory at baseline. Pt denied any abdominal pain and reported having 2-3 bowel movements per week In the ED, labs were significant for leukocytosis of 17.5, POC glucose of 465, lactic acid 2.4 with repeat 2.7, bilirubin elevated at 1.3, AST 63, ALT 95.? Kidney function mildly elevated with creatinine 0.96. Electrolytes WNL.? UA negative for UTI. Pt was admitted for further evaluation of sepsis in the setting of gastroparesis versus acute cholecystitis.treated with Zosyn, IVF, acetaminophen, metoprolol 5 mg IV push and insulin. Pt was scheduled for coli cystostomy tube placement which was canceled since FU CT scan on 05/07/23 showed decrease in the size of the gallbladder without wall thickening. GI consulted for evaluated of a dilated stomach Pt denies nausea, vomiting or abdominal pain today. She has been tolerating a clear liquid diet and her diet was advanced to a regular diet today. Review of pt's records show that her stomach is chronically dilated on previous CT scans She was hospitalized at [facility] in Oct, [address] Parkinson. An UGI was performed which showed Patent GE junction, normal stomach and patent duodenum with contrast extending into proximal Jejunum A FU KUB showed oral contrast had reached the hepatic flexure of the colon and no obstruction was noted. Pt reports [place] - bed is broken and food is horrible She feels like she is in a fpc. Pt previously lived in a house with her . She has 2 daughters (47 and 49 yr old) Her eldest daughter is her HCP. 05/05/[address] SCAN SHOWED: Significantly decreased size of the gallbladder when compared to CT abdomen 05/05/2023. No wall thickening,, radiopaque stones or adjacent fluid collection. CT guided cholecystostomy tube placement was canceled. Patient white count is normal at this time. There is no right upper quadrant pain as well. 05/07/[address] SCAN SHOWED: Significantly decreased size of the gallbladder when compared to CT abdomen 05/05/2023. No wall thickening,, radiopaque stones or adjacent fluid collection. CT guided cholecystostomy tube placement was canceled. Patient white count is normal at this time. There is no right upper quadrant pain as well. Review of Systems Review of Systems: Nausea, vomiting on admission which has resolved Denies abdominal pain No fever, chills Denies constipation No chest pain/pressure, palpitations Denies shortness of breath Yes all other systems are reviewed and are negative [facility] Past Medical History Medical History Anxiety CAD (coronary artery disease) Chronic respiratory disease COVID-19 COVID-19 vaccine administered Depression Diabetes Foul smelling vaginal discharge HLD (hyperlipidemia) HTN (hypertension) Low back pain Osteoarthritis Personality disorder Thickened endometrium Venous (peripheral) insufficiency Surgical History Surgical History Hx of heart artery stent Social History Social History Housing: Retirement Are you a primary day care home provider to a significant other at home: No Do you presently have visiting nurse or other home services: Yes (resides at [facility]) Alcohol intake: never Patient Tobacco Use Status: Tobacco use Unknown Advance Directives Date on File: 01/16/21 service: No Current occupational status: disabled Meds Allergies Allergy/AdvReac Type Severity Reaction Status Date / Time No Known Allergies Allergy Verified 02/25/21 11:59 [No Known Allergies*] Active Medications: Current Medications Acetaminophen (Acetaminophen 325 Mg Tablet) 650 mg PO Q6H PRN PRN Reason: Pain, Mild (Pain Scale 1-3) Last Admin: 05/07/23 08:22 Dose: 650 mg Al Hydroxide/Mg Hydroxide (Magnesium Hydrox/Alum Hydrox 30 Ml Oral.Susp) 30 ml PO Q6H PRN PRN Reason: Heartburn Albuterol Sulfate (Albuterol Sulfate (0.042%) 1.25 Mg/3 Ml Vial.Neb) 0.63 mg INHALE Q4H PRN PRN Reason: Congestion Atorvastatin Calcium (Atorvastatin Calcium 20 Mg Tablet) 20 mg PO BEDTIME [facility] Last Admin: 05/08/23 21:11 Dose: 20 mg Bisacodyl (Bisacodyl 10 Mg Supp.Rect) 10 mg KS DAILY PRN PRN Reason: Constipation Carvedilol (Carvedilol 12.5 Mg Tablet) 25 mg PO BID [facility]; Protocol Last Admin: 05/09/23 08:29 Dose: 25 mg Dextrose (Dextrose 50 % 25 Gm/50 Ml Syringe) 25 gm IVPUSH Q15M PRN; Protocol PRN Reason: per Hypoglycemia Standing Ord. Docusate Sodium (Docusate Sodium 100 Mg Capsule) 100 mg PO DAILY PRN PRN Reason: Constipation Duloxetine HCl (Duloxetine Hcl 20 Mg Capsule.Dr) 20 mg PO DAILY [facility] Last Admin: 05/09/23 08:29 Dose: 20 mg Duloxetine HCl (Duloxetine Hcl 60 Mg Capsule.) 60 mg PO DAILY [facility] Last Admin: 05/09/23 08:29 Dose: 60 mg Enoxaparin Sodium (Enoxaparin Sodium 40 Mg/0.4 Ml Syringe) 40 mg SUBCUT Q24H [facility] Last Admin: 05/08/23 17:19 Dose: 40 mg Furosemide (Furosemide 20 Mg Tablet) 20 mg PO DAILY [facility]; Protocol Last Admin: 05/09/23 08:29 Dose: 20 mg Glucose (Glucose Gel 15 Gm Gel..Gram.) 15 gm PO Q15M PRN; Protocol PRN Reason: per Hypoglycemia Standing Ord. Insulin Glargine (Insulin Glargine,Hum.Rec.Anlog 100 Unit/Ml 10 Ml Vial) 50 unit SUBCUT BEDTIME [facility] Last Admin: 05/05/23 19:01 Dose: 50 unit Insulin Glargine (Insulin Glargine,Hum.Rec.Anlog 100 Unit/Ml 10 Ml Vial) 50 unit SUBCUT DAILY [facility] Last Admin: 05/06/23 09:01 Dose: Not Given Insulin Glargine (Insulin Glargine,Hum.Rec.Anlog 100 Unit/Ml 10 Ml Vial) 10 unit SUBCUT BID [facility] Last Admin: 05/09/23 08:31 Dose: 10 unit Insulin Human Lispro (Insulin Lispro 100 Unit/Ml 3 Ml Vial) 0 unit SUBCUT QIDACHS [facility]; Protocol Last Admin: 05/09/23 08:29 Dose: 8 unit Lorazepam (Lorazepam 0.5 Mg Tablet) 0.5 mg PO DAILY PRN PRN Reason: Anxiety Lorazepam (Lorazepam 0.5 Mg Tablet) 0.5 mg PO BEDTIME [facility] Last Admin: 05/08/23 21:12 Dose: 0.5 mg Magnesium Oxide (Magnesium Oxide 400 Mg Tablet) 400 mg PO BID [facility] Last Admin: 05/09/23 08:29 Dose: 400 mg Medroxyprogesterone Acetate (Medroxyprogesterone Acetate 5 Mg Tablet) 20 mg PO BID [facility] Last Admin: 05/09/23 08:28 Dose: 20 mg Morphine Sulfate (Morphine Sulfate Immed Release 15 Mg Tablet) 15 mg PO Q4H PRN PRN Reason: Pain, Moderate(Pain Scale 4-6) Ondansetron HCl (Ondansetron Hcl 4 Mg/2 Ml Vial) 4 mg IVPUSH Q8H PRN PRN Reason: Nausea and Vomiting Pharmacy Consult (Consult Rx Perform Med Rec) 1 each MISCELLANE ONCE PRN PRN Reason: Consult order Polyethylene Glycol (Polyethylene Glycol 3350 17 Gm Powd.Pack) 17 gm PO DAILY PRN PRN Reason: Constipation Pregabalin (Pregabalin 75 Mg Capsule) 75 mg PO BID [facility] Last Admin: 05/09/23 08:28 Dose: 75 mg Sodium Chloride (0.9 % Sodium Chloride Flush 3 Ml Syringe) 3 ml IVFLUSH QSHIFT [facility] Last Admin: 05/09/23 08:28 Dose: 3 ml Sumatriptan Succinate (Sumatriptan Succinate 25 Mg Tablet) 25 mg PO DAILY MRX1 PRN PRN Reason: Migraine Headache Trazodone HCl (Trazodone Hcl 25 Mg Halftab) 25 mg PO BID [facility] Last Admin: 05/09/23 08:29 Dose: 25 mg Trazodone HCl (Trazodone Hcl 50 Mg Tablet) 50 mg PO BEDTIME [facility] Last Admin: 05/08/23 21:12 Dose: 50 mg Home Medications Medication Instructions Recorded Confirmed Last Taken Type atorvastatin 20 mg tablet 1 tab PO BEDTIME 01/16/21 05/05/23 Unknown History bisacodyl 10 mg rectal suppository 10 mg KS DAILY PRN Constipation 01/16/21 05/05/23 Unknown History duloxetine 20 mg capsule,delayed 1 cap PO DAILY 01/16/21 05/05/23 Unknown History release duloxetine 60 mg capsule,delayed 1 cap PO DAILY 01/16/21 05/05/23 Unknown History release furosemide 20 mg tablet 20 mg PO DAILY 01/16/21 05/05/23 Unknown History insulin aspart U-100 100 unit/mL 5 unit subcut TIDAC 01/16/21 05/05/23 Unknown History subcutaneous solution (Novolog U-100 Insulin aspart) insulin aspart U-100 100 unit/mL See Protocol subcut TIDWM 01/16/21 05/05/23 Unknown History subcutaneous solution (Novolog U-100 Insulin aspart) magnesium oxide 400 mg PO BID 01/16/21 05/05/23 Unknown History polyethylene glycol 3350 17 17 g PO DAILY PRN Constipation 01/16/21 05/05/23 Unknown History gram/dose oral powder (Miralax) pregabalin 75 mg capsule 1 cap PO BID 01/16/21 05/05/23 Unknown History trazodone 50 mg tablet 25 mg PO BID 01/16/21 05/05/23 Unknown History lorazepam 0.5 mg tablet 0.5 mg PO BEDTIME 03/10/21 05/05/23 Unknown History lorazepam 0.5 mg tablet (Ativan) 0.5 mg PO DAILY PRN Anxiety 03/10/21 05/05/23 Unknown History acetaminophen 500 mg tablet 1,000 mg PO Q8H PRN Pain 05/05/23 05/05/23 Unknown History albuterol sulfate 0.63 mg/3 mL 0.63 mg inhalation Q4H PRN 05/05/23 05/05/23 Unknown History solution for nebulization Congestion aluminum-mag hydroxide-simethicone 30 ml PO Q6H PRN Heartburn 05/05/23 05/05/23 Unknown History 200 mg-200 mg-20 mg/5 mL oral susp ([place]y-L[place]) dextrose 40 % oral gel (Glucose 10 g PO Q10M PRN Hypoglycemia 05/05/23 05/05/23 Unknown History Gel) dulaglutide 0.75 mg/0.5 mL 0.75 mg subcut FR 05/05/23 05/05/23 Unknown History [facility] glucagon HCl 1 mg solution for 1 mg subcut Q20M PRN Hypoglycemia 05/05/23 05/05/23 Unknown History injection (Glucagon (HCl) Emergency Kit) guaifenesin 400 mg tablet 400 mg PO Q4H PRN Cough 05/05/23 05/05/23 Unknown History hydrocortisone 1 % topical cream 1 appl topical TID PRN Itching 05/05/23 05/05/23 Unknown History ketoconazole 2 % shampoo 1 appl topical FR 05/05/23 05/05/23 Unknown History medroxyprogesterone 10 mg tablet 20 mg PO BID 05/05/23 05/05/23 Unknown History menthol 5 % topical patch (Icy Hot 1 patch topical BID 05/05/23 05/05/23 Unknown History (menthol)) methyl salicylate 15 %-menthol 10 1 appl topical TID PRN Pain 05/05/23 05/05/23 Unknown History % topical cream miconazole nitrate 2 % topical 1 appl topical BID 05/05/23 05/05/23 Unknown History powder morphine 15 mg immediate release 15 mg PO Q4H PRN pain 05/05/23 05/05/23 Unknown History tablet ondansetron HCl 4 mg tablet 4 mg PO Q8H PRN Nausea 05/05/23 05/05/23 Unknown History sumatriptan succinate 25 mg tablet 25 mg PO DAILY MRX1 PRN Migraine 05/05/23 05/05/23 Unknown History Headache trazodone 50 mg tablet 50 mg PO BEDTIME 05/05/23 05/05/23 Unknown History Physical Exam Vital Signs: Vital Signs: Last Vital Signs Temp 98.9 F 05/09/23 07:28 Pulse 82 05/09/23 07:28 Resp 20 05/09/23 07:28 BP 160/70 H 05/09/23 07:28 Pulse Ox 98 05/09/23 07:28 O2 Del Method Nasal Cannula 05/09/23 07:28 O2 Flow Rate 2 05/09/23 07:28 Oxygen Flow Rate 4 05/05/23 09:31 BMI result Body Mass Index 40.1 Const: General: no acute distress and ill appearing Nutritional Appearance: obese (morbidly obese) Orientation/consciousness: patient oriented x3 Limitations: other limitations (bed bound/non-ambulatory) HEENT: Head: Yes normal to inspection Ears: hearing grossly normal bilaterally Eyes: Sclerae: sclerae normal Pupils: Equal, round and reactive pupils present Neck: Neck: Yes normal visual inspection Chest: Chest palpation & inspection: normal inspection of the chest Resp: Effort & Inspection: normal respiratory effort Auscultation: clear to auscultation bilaterally Cardio: Palpation: normal PMI Rate: regular rate Rhythm: regular rhythm Heart sounds: S1 normal heart sound present, S2 normal heart sound present and no murmurs GI: Palpation (GI): Soft to palpation, nontender and No hepatosplenomegaly present Auscultation: normal bowel sounds Rectal Exam - Female: deferred Skin: General skin exam: no rashes or lesions noted Neuro: General: patient oriented x3, gait normal and moves all extremities Cranial nerves: Yes Equal, round and reactive pupils present Psych: Appearance: grossly normal Mental Status: mental status grossly normal Results Labs 05/07/23 09:18 05/09/23 05:46 Labs: BMP 05/09/23 05:46 Creatinine 0.56 Microbiology Microbiology Results: Microbiology 05/05/23 09:57 Blood - Venous Blood Culture - Preliminary No growth after 48 hours. 05/05/23 09:43 Blood - Venous Blood Culture - Preliminary No growth after 48 hours. Assessment and Plan (1) Abnormal CT scan, stomach: Status: Acute (2) Nausea and vomiting: Status: Acute Plan 68 YF with CAD s/p stents, insulin-dependent diabetes type 2, HTN, HLD, osteoarthritis, chronic back pain, home O2, morbid obesity and mood disorder admitted to [facility] on 05/05/23 from SNF with 2 day hx of nausea and vomiting.? Patient has been a resident at an SNF for the past 7 years, and is nonambulatory at baseline. Pt was admitted for further evaluation of sepsis in the setting of gastroparesis versus acute cholecystitis and treated with IV antibiotics. Pt was scheduled for coli cystostomy tube placement which was canceled since FU CT scan on 05/07/23 showed decrease in the size of the gallbladder without wall thickening. GI consulted for evaluation of a dilated stomach Pt denies nausea, vomiting or abdominal pain today. She has been tolerating a clear liquid diet and her diet was advanced to a regular diet today. She was hospitalized at [facility] in Oct, [address] Parkinson. An UGI was performed which showed Patent GE junction, normal stomach and patent duodenum with contrast extending into proximal Jejunum A FU KUB showed oral contrast had reached the hepatic flexure of the colon and no obstruction was noted. Pt has a chronically dilated stomach due to diabetic gastroparesis RECOMMENDATIONS: 1. Continue IV antiemetics 2. OK to start PO reglan 5 mg 2-3 times a day pre-meals 3. If pt is able to tolerate PO diet, she can be discharged back to the retirement on PO reglan If she has recurrent nausea and vomiting, she can be re-evaluated for an EGD (after clearnace by anesthesia) Pt is high risk due to morbid obesity, CAD and oxygen dependence due to COPD Time Spent With Patient Time: Total time managing care of this patient today ____ minutes. Procedures Date of Service Date of Service: 06/03/23
[2023-05-09 10:58] LABS: Glucose, Whole Blood 308 mg/dL (60-115)
[2023-05-09 11:16] VITALS: BP 150/60; PULSE 84; RESP 20; TEMP 36.6; O2SAT 99
--- NOTE | 2023-05-09 13:27 | HO.PM.IMPN ---
Subjective Subjective Date of Service: 05/20/23 Interval History: nausea /vomitin Review of Systems denies any nasuea or vomiting or diarrahe bp still improvin Physical Exam Vital Signs: Vital Signs: Last Vital Signs Temp 97.9 F 05/09/23 11:16 Pulse 84 05/09/23 11:16 Resp 20 05/09/23 11:16 BP 150/60 H 05/09/23 11:16 Pulse Ox 99 05/09/23 11:16 O2 Del Method Nasal Cannula 05/09/23 11:16 O2 Flow Rate 2 05/09/23 11:16 Oxygen Flow Rate 4 05/05/23 09:31 BMI result Body Mass Index 40.1 Appearance: Alert.? Oriented X3.? not in distress.? cvs: rrr, [id number] . res: clear to auscultation ,no rhonchii or wheezing abd: no rebound or guarding ,nt, bs present. ext pulses present , no cyanosis. neuro: axo3 , nonfocal. Objective Data Active Medications Acetaminophen (Acetaminophen 325 Mg Tablet) 650 mg PO Q6H PRN PRN Reason: Pain, Mild (Pain Scale 1-3) Last Admin: 05/07/23 08:22 Dose: 650 mg Documented By: VALERIE Al Hydroxide/Mg Hydroxide (Magnesium Hydrox/Alum Hydrox 30 Ml Oral.Susp) 30 ml PO Q6H PRN PRN Reason: Heartburn Albuterol Sulfate (Albuterol Sulfate (0.042%) 1.25 Mg/3 Ml Vial.Neb) 0.63 mg INHALE Q4H PRN PRN Reason: Congestion Atorvastatin Calcium (Atorvastatin Calcium 20 Mg Tablet) 20 mg PO BEDTIME [facility] Last Admin: 05/08/23 21:11 Dose: 20 mg Documented By: AXEL Bisacodyl (Bisacodyl 10 Mg Supp.Rect) 10 mg KS DAILY PRN PRN Reason: Constipation Carvedilol (Carvedilol 12.5 Mg Tablet) 25 mg PO BID [facility]; Protocol Last Admin: 05/09/23 08:29 Dose: 25 mg Documented By: FACUNDO Dextrose (Dextrose 50 % 25 Gm/50 Ml Syringe) 25 gm IVPUSH Q15M PRN; Protocol PRN Reason: per Hypoglycemia Standing Ord. Docusate Sodium (Docusate Sodium 100 Mg Capsule) 100 mg PO DAILY PRN PRN Reason: Constipation Duloxetine HCl (Duloxetine Hcl 20 Mg Capsule.) 20 mg PO DAILY [facility] Last Admin: 05/09/23 08:29 Dose: 20 mg Documented By: FACUNDO Duloxetine HCl (Duloxetine Hcl 60 Mg Capsule.) 60 mg PO DAILY [facility] Last Admin: 05/09/23 08:29 Dose: 60 mg Documented By: FACUNDO Enoxaparin Sodium (Enoxaparin Sodium 40 Mg/0.4 Ml Syringe) 40 mg SUBCUT Q24H [facility] Last Admin: 05/08/23 17:19 Dose: 40 mg Documented By: FACUNDO Furosemide (Furosemide 20 Mg Tablet) 20 mg PO DAILY [facility]; Protocol Last Admin: 05/09/23 08:29 Dose: 20 mg Documented By: FACUNDO Glucose (Glucose Gel 15 Gm Gel..Gram.) 15 gm PO Q15M PRN; Protocol PRN Reason: per Hypoglycemia Standing Ord. Insulin Glargine (Insulin Glargine,Hum.Rec.Anlog 100 Unit/Ml 10 Ml Vial) 50 unit SUBCUT BEDTIME [facility] Last Admin: 05/05/23 19:01 Dose: 50 unit Documented By: DARYL Insulin Glargine (Insulin Glargine,Hum.Rec.Anlog 100 Unit/Ml 10 Ml Vial) 50 unit SUBCUT DAILY [facility] Last Admin: 05/06/23 09:01 Dose: Not Given Documented By: SALEEM Non-Admin Reason: Physician Held Med Insulin Glargine (Insulin Glargine,Hum.Rec.Anlog 100 Unit/Ml 10 Ml Vial) 10 unit SUBCUT BID [facility] Last Admin: 05/09/23 08:31 Dose: 10 unit Documented By: FACUNDO Insulin Human Lispro (Insulin Lispro 100 Unit/Ml 3 Ml Vial) 0 unit SUBCUT QIDACHS [facility]; Protocol Last Admin: 05/09/23 12:22 Dose: 8 unit Documented By: FACUNDO Lorazepam (Lorazepam 0.5 Mg Tablet) 0.5 mg PO DAILY PRN PRN Reason: Anxiety Lorazepam (Lorazepam 0.5 Mg Tablet) 0.5 mg PO BEDTIME [facility] Last Admin: 05/08/23 21:12 Dose: 0.5 mg Documented By: AXEL Magnesium Oxide (Magnesium Oxide 400 Mg Tablet) 400 mg PO BID [facility] Last Admin: 05/09/23 08:29 Dose: 400 mg Documented By: FACUNDO Medroxyprogesterone Acetate (Medroxyprogesterone Acetate 5 Mg Tablet) 20 mg PO BID [facility] Last Admin: 05/09/23 08:28 Dose: 20 mg Documented By: FACUNDO Metoclopramide HCl (Metoclopramide Hcl 5 Mg Tablet) 5 mg PO BID PRN PRN Reason: nausea Morphine Sulfate (Morphine Sulfate Immed Release 15 Mg Tablet) 15 mg PO Q4H PRN PRN Reason: Pain, Moderate(Pain Scale 4-6) Ondansetron HCl (Ondansetron Hcl 4 Mg/2 Ml Vial) 4 mg IVPUSH Q8H PRN PRN Reason: Nausea and Vomiting Pharmacy Consult (Consult Rx Perform Med Rec) 1 each MISCELLANE ONCE PRN PRN Reason: Consult order Polyethylene Glycol (Polyethylene Glycol 3350 17 Gm Powd.Pack) 17 gm PO DAILY PRN PRN Reason: Constipation Pregabalin (Pregabalin 75 Mg Capsule) 75 mg PO BID [facility] Last Admin: 05/09/23 08:28 Dose: 75 mg Documented By: FACUNDO Sodium Chloride (0.9 % Sodium Chloride Flush 3 Ml Syringe) 3 ml IVFLUSH QSHIFT [facility] Last Admin: 05/09/23 08:28 Dose: 3 ml Documented By: FACUNDO Sumatriptan Succinate (Sumatriptan Succinate 25 Mg Tablet) 25 mg PO DAILY MRX1 PRN PRN Reason: Migraine Headache Trazodone HCl (Trazodone Hcl 25 Mg Halftab) 25 mg PO BID [facility] Last Admin: 05/09/23 08:29 Dose: 25 mg Documented By: FACUNDO Trazodone HCl (Trazodone Hcl 50 Mg Tablet) 50 mg PO BEDTIME [facility] Last Admin: 05/08/23 21:12 Dose: 50 mg Documented By: AXEL Labs 05/07/23 09:18 05/09/23 05:46 Labs: Laboratory Results - last 24 hr 05/08/23 05/08/23 05/09/23 16:22 19:55 05:46 Estim Creat Clear Calc 128.9 Estimated GFR > 60 POC Glucose 295 H 342 H 05/09/23 05/09/23 06:56 10:54 Estim Creat Clear Calc Estimated GFR POC Glucose 334 H 308 H Assessment and Plan (1) Nausea and vomiting: Status: Acute (2) Abnormal CT scan, stomach: Status: Acute Plan 68-year-old female with a PMH significant for?CAD s/p stents, insulin-dependent diabetes type 2, HTN, HLD, osteoarthritis, home O2, and mood disorder who presents to the ED from SNF with nausea and vomiting x2 days.? Patient met in the hospital for treatment and further evaluation of sepsis in setting of gastroparesis versus acute cholecystitis. sepsis seems resolved. seems probable viral component ? WBC tachypnea improved CT of abdomen and pelvis showed cholelithiasis with prominent fundal gallbladder folds with patchy stranding of the pericholecystic fat with small perihepatic ascites hida scan and ct abd repeat 05/07/23 -not acute cholecysititis Abdominal ultrasound found cholelithiasis without evidence for acute cholecystitis plan: res panel neg,send gi panel once have stool available Initially patient was IV antibiotic-which is stopped-UA does not show pyuria/bacteriuria, blood culture negative, leukocytosis resolved. ct abd and hida scan done-reviewed by surgery? -recomended to start clear liquids and moniter since patient symptoms improving,hence cholecystostomy cancelled . Of IV antibiotic and fluid, will advance the diet to full liquid, Tachycardia improving with bb and hydration cta -neg Pulm embolism metoprolol switched to coreg due to elevated bp/tachycarbia. Continue Coreg. uncontrolled htn: adjusted coreg,stopped fluids moniter bp closley if need will add amlodipine 2.5 mg . acute Lactic acidosis-likely multifactorial( dehydration,hyperglycemia ) not due to sepsis Patient given IVF. Insulin-dependent Diabetes type 2 Patient hypoglycemic at time of presentation:? POCs in the 200's Hold home meds Sliding-scale insulin,hold Lantus. Chronic back pain Continue home morphine Abnormal uterine bleeding Continue medroxyprogesterone Anxiety/depression Continue home meds Obesity class III possible due to calorie excess : Weight loss encouraged ch respiratory failure( as per staff senior care patient has smoke inhaltion injury hx) :on oxygen as per [facility]. Full Code DVT Prophylaxis: Lovenox inpatient need : sepsis resolved, moniter off antbiotics ,Gi eval for dilated stomach-? gasteroparesis Time Spent With Patient Time: Total time managing care of this patient today ____ minutes. Quality Stroke Does the patient have a stroke diagnosis?: No VTE Prior VTE?: No VTE Risk Level:: Medical - moderate - high VTE Device Contraindication: Treatment Not Indicated VTE Drug Contraindication: N/A - Med Ordered
--- NOTE | 2023-05-09 13:49 | PM.DS ---
DS: Providers Provider Date of Service: 05/09/23 Date of admission: 05/05/23 17:30 Date of discharge: 05/09/23 Primary care physician: Lo Presley MD Consults: 05/05/23 13:58 Consult to General Surgery Stat [place]ing [place] [facility] [place] Reason for consultation: cholecystitis Has provider been notified: Yes 05/09/23 07:33 Consult to Gastroenterology Routine Consulting Provider[place] [facility] [place] Reason for consultation: ?gasteroparesis -cauing intermittent nausea/vomitin-ct abd -dilated stomach Attending physician on discharge: Mily Ruiz Discharging clinician: Mily Ruiz DS: Diagnosis Discharge Diagnosis (1) Abnormal CT scan, stomach: Status: Acute (2) Nausea and vomiting: Status: Acute (3) Sepsis: Status: Acute (4) Proteinuria: Status: Acute DS: Summary Hospital Course Hospital Course: 68-year-old female with a PMH significant for?CAD s/p stents, insulin-dependent diabetes type 2, HTN, HLD, osteoarthritis, home O2, and mood disorder who presents to the ED from SNF with nausea and vomiting x2 days.? Patient is alert and oriented though though not completely aware of her situation. She has been a resident at an SNF for the past 7 years, though she is unsure why she initially went there.? Patient is nonambulatory at baseline. She states she has been nauseous and vomiting several times daily for the past 2-3 days.? Denies any abdominal pain. Reports normally have 2-3 bowel movements per week with last movement a few days ago. Denies fever, chills. Complains of chronic back pain.? Denies chest pain/pressure, palpitations.? No shortness of breath. In the ED patient was febrile at 101.2, tachycardic up to 136, tachypneic up to 22, and hypertensive up to 179/94. Labs were significant for leukocytosis of 17.5, POC glucose of 465, lactic acid 2.4 with repeat 2.7, bilirubin elevated at 1.3, AST 63, ALT 95.? Kidney function mildly elevated with creatinine 0.96. Electrolytes WNL.? UA negative for UTI. CXR showed no acute cardiopulmonary process seen. CT?of abdomen and pelvis found gallstones with prominent fundal gallbladder folds and patchy stranding of pericholecystic fat small perihepatic ascites.? Abdominal ultrasound found cholelithiasis without evidence of acute cholecystitis. EKG demonstrated sinus tachycardia [address] elevations depressions. Pt was treated with Zosyn, IVF, acetaminophen, metoprolol 5 mg IV push and insulin. Pt will be admitted to the hospital treatment and further evaluation of sepsis in the setting of gastroparesis versus acute cholecystitis. Hospital course: Patient was initially admitted for sepsis which was initially thought to be related to acute cholecystitis-patient was started on IV antibiotics and blood cultures sent, also seen by surgery: Subsequently CT abdomen and HIDA scan was done-does not show cholecystitis, patient's symptoms resolved- so probably initial sepsis possible viral. surgery and IR recomended no need for cholecystostomy ,antibiotics dicontinued and monitered off antibiotics, patient is asymptomatic, no fever, leukocytosis resolved, blood culture as above negative. Patient possibly has gastroparesis also-consider p.r.n. Reglan if needed out patiently. Blood culture negative@ 48 hours. Currently patient is asymptomatic, follow up with GI outpatient. uncontrolled htn-started on coreg for better blood pressure control and added amlodipine. diabetes : levemir adjusted (because patient was not eating -was npo ) started on diet today now tolerating , adjust Levemir accordingly as per fingersticks in rehab. Her initial UA also shows she has proteinuria: Consider repeating UA in rehab, also consider outpatient nephrology evaluation for further evaluation of proteinuria. Currently she will benefit from better blood pressure and diabetes control. Above discussed with patient and her daughter in detail length both understand and in agreement with the above plan. time spent Time Spent with Patient Time attestation: Total time managing care of this patient today ____ minutes. Discharge coordination time: Greater than 30 minutes Quality: Safe Use of Opioids Does Pt have an Active Cancer Diagnosis on the Problem List?: No Quality: Stroke Does the patient have a stroke diagnosis?: No Physical Exam Vital Signs: Vital Signs: Last Vital Signs Temp 97.9 F 05/09/23 11:16 Pulse 84 05/09/23 11:16 Resp 20 05/09/23 11:16 BP 150/60 H 05/09/23 11:16 Pulse Ox 99 05/09/23 11:16 O2 Del Method Nasal Cannula 05/09/23 11:16 O2 Flow Rate 2 05/09/23 11:16 Oxygen Flow Rate 4 05/05/23 09:31 BMI result Body Mass Index 40.1 Appearance: Alert.? Oriented X3.? not in distress.? cvs: rrr, [id number] . res: clear to auscultation ,no rhonchii or wheezing abd: no rebound or guarding ,nt, bs present. ext pulses present , no cyanosis. neuro: axo3 , nonfocal. DS: Data Data Completed and Pending Labs on day of discharge: Laboratory Results - last 24 hr 05/08/23 05/08/23 05/09/23 16:22 19:55 05:46 Creatinine 0.56 Estim Creat Clear Calc 128.9 Estimated GFR > 60 POC Glucose 295 H 342 H 05/09/23 05/09/23 06:56 10:54 Creatinine Estim Creat Clear Calc Estimated GFR POC Glucose 334 H 308 H Preliminary micro results at discharge 05/05/23 09:57 Blood Culture - Preliminary Blood - Venous No growth after 48 hours. 05/05/23 09:43 Blood Culture - Preliminary Blood - Venous No growth after 48 hours. Imaging Chest x-ray: Radiologist's impression: ITS Impressions Abdomen/Pelvis CT 05/05/23 11:31 IMPRESSION: Multiple noncalcific gallstones. There is prominent fundal gallbladder folds again observed but now with patchy stranding of the pericholecystic fat. Small perihepatic ascites. Mild wall thickening of distal esophagus could be related to lack of distention versus esophagitis. Stomach distended, similar to the previous evaluation. Colonic diverticulosis. Increased attenuation in the anterior abdominal wall subcutaneous fat may be related to injection sites or edema. Endometrium thickened for a patient of this age at 2 cm. If not already performed, endometrial sampling recommended. Other incidental findings as noted above. Fleischner guidelines were followed. Chest X-Ray 05/05/23 12:06 IMPRESSION: No acute cardiopulmonary process. Abdomen Ultrasound 05/05/23 13:00 IMPRESSION: Cholelithiasis without evidence for acute cholecystitis. Chest CTA 05/06/23 14:50 IMPRESSION: No acute abnormality of chest. No evidence of pulmonary embolism. VTE: negative. Abdomen CT 05/07/23 11:29 IMPRESSION: Significantly decreased size of the gallbladder when compared to CT abdomen 05/05/2023. No wall thickening,, radiopaque stones or adjacent fluid collection. CT guided cholecystostomy tube placement was canceled. Patient white count is normal at this time. There is no right upper quadrant pain as well. Results was conveyed personally to Dr. Carmella Bacon after the exam. Fleischner guidelines were followed. Hepatobiliary Scan Nuclear Medicine 05/07/23 13:15 IMPRESSION: Normal hepatic uptake. Patent CBD patent cystic duct. Results were conveyed to Dr. Carmella Bacon personally after the scan. Discharge Plan Discharge Anticipated Discharge Date/Time: 05/09/23 13:39 Patient Disposition: Home, Self-Care Discharge Diagnosis: sepsis possible viral , possibel gasteroparesis Referrals: Lo Presley MD [Primary Care Provider] - 1 Week Discharge Medications: New amlodipine 2.5 mg Tablet 2.5 mg PO DAILY Qty: 30 0RF Protocol: Hold for SBP< HOLD for SBP < : 90 carvedilol 12.5 mg Tablet 25 mg PO BID Qty: 60 0RF Protocol: Hold for SBP/HR < HOLD for SBP < : 90 HOLD for HR < : 60 Continued atorvastatin 20 mg tablet 1 tab PO BEDTIME trazodone 50 mg Tablet 25 mg PO BID bisacodyl 10 mg Suppository 10 mg [place] DAILY PRN (Reason: Constipation) furosemide 20 mg Tablet 20 mg PO DAILY polyethylene glycol 3350 [Miralax] 17 gram/dose Powder 17 g PO DAILY PRN (Reason: Constipation) duloxetine 20 mg capsule,delayed release(DR/EC) 1 cap PO DAILY duloxetine 60 mg capsule,delayed release(DR/EC) 1 cap PO DAILY pregabalin 75 mg capsule 1 cap PO BID magnesium oxide 400 mg magnesium Tablet 400 mg PO BID insulin aspart U-100 [Novolog U-100 Insulin aspart] 100 unit/mL solution See Protocol subcut TIDWM Protocol: Insulin Correction Scale Less than or equal to 110 ---- Give (units): 0 111 to 150 Give (units): 0 151 to 200 Give (units): 0 201 to 250 Give (units): 2 251 to 300 Give (units): 4 301 to 350 Give (units): 6 Greater than 350 Give (units): 8 Call MD if Blood Glucose > : 400 insulin aspart U-100 [Novolog U-100 Insulin aspart] 100 unit/mL solution 5 unit subcut TIDAC lorazepam 0.5 mg Tablet 0.5 mg PO BEDTIME lorazepam [Ativan] 0.5 mg Tablet 0.5 mg PO DAILY PRN (Reason: Anxiety) albuterol sulfate 0.63 mg/3 mL solution for nebulization 0.63 mg inhalation Q4H PRN (Reason: Congestion) ketoconazole 2 % Shampoo 1 appl TOPICAL FR Rx Instructions: apply to annamaria, leave on for 5 - 10 minutes then rinse. Use as facial wash as well. sumatriptan succinate 25 mg tablet 25 mg PO DAILY MRX1 PRN (Reason: Migraine Headache) dextrose [Glucose Gel] 40 % Gel 10 g PO Q10M PRN (Reason: Hypoglycemia) Rx Instructions: if FSBS < 50;until symptoms of low blood sugar are controlled miconazole nitrate 2 % Powder 1 appl TOPICAL BID Rx Instructions: apply to neck folds hydrocortisone 1 % Cream 1 appl TOPICAL TID PRN (Reason: Itching) Rx Instructions: right elbow/left chest alum-mag hydroxide-simeth [Yeimy-Lanta] 200-200-20 mg/5 mL Suspension 30 ml PO Q6H PRN (Reason: Heartburn) Rx Instructions: administer between meals and at bedtime guaifenesin 400 mg Tablet 400 mg PO Q4H PRN (Reason: Cough) Icy Hot (menthol) 5 % Adhesive Patch,Medicated 1 patch TOPICAL BID Rx Instructions: to neck laterally right side Bengay Greaseless 15-10 % Cream 1 appl TOPICAL TID PRN (Reason: Pain) Rx Instructions: for back pain/right leg pain/right shoulder glucagon HCl [Glucagon (HCl) Emergency Kit] 1 mg Recon Soln 1 mg SUBCUT Q20M PRN (Reason: Hypoglycemia) Rx Instructions: if FSBS <60; until target blood sugar attained medroxyprogesterone 10 mg Tablet 20 mg PO BID trazodone 50 mg tablet 50 mg PO BEDTIME ondansetron HCl 4 mg tablet 4 mg PO Q8H PRN (Reason: Nausea) acetaminophen 500 mg Tablet 1,000 mg PO Q8H PRN (Reason: Pain) morphine 15 mg tablet 15 mg PO Q4H PRN (Reason: pain) Trulicity 0.75 mg/0.5 mL Pen Injector 0.75 mg SUBCUT FR Changed Levemir U-100 Insulin 100 unit/mL solution 50 unit subcut BID Qty: 1 0RF Discontinued metoprolol succinate 50 mg tablet extended release 24 hr 1 tab PO DAILY Discharge Orders: Discharge Order (Routine); Ordered 05/09/23 Ordered By: Mily Ruiz Diet: Advance to usual diet Activity on Discharge: As tolerated Stand Alone Forms: Patient Portal Discharge page Care Plan Goals: Patient was initially admitted for sepsis which was initially thought to be related to acute cholecystitis-patient was started on IV antibiotics and blood cultures sent, also seen by surgery: Subsequently CT abdomen and HIDA scan was done-does not show cholecystitis, patient's symptoms resolved- so probably initial sepsis possible viral. surgery and IR recomended no need for cholecystostomy ,antibiotics dicontinued and monitered off antibiotics, patient is asymptomatic, no fever, leukocytosis resolved, blood culture as above negative. Patient possibly has gastroparesis also-consider p.r.n. Reglan if needed out patiently. Blood culture negative@ 48 hours. Currently patient is asymptomatic, follow up with GI outpatient. uncontrolled htn-started on coreg for better blood pressure control and added amlodipine. diabetes : levemir adjusted (because patient was not eating -was npo ) started on diet today now tolerating , adjust Levemir accordingly as per fingersticks in rehab. Her initial UA also shows she has proteinuria: Consider repeating UA in rehab, also consider outpatient nephrology evaluation for further evaluation of proteinuria. Currently she will benefit from better blood pressure and diabetes control. Above discussed with patient's daughter in detail length she understand and in agreement with the above plan. Health Concerns: As above. Plan of Treatment: As above. Assessment: As above.
--- NOTE | 2023-05-09 13:55 | MHC.CM.PN ---
Patient has been medically cleared for dc to return to LTC today. Patient will return to LTC @ [facility] today at 5PM, via [facility]. MD spoke with Daughter regarding the dc plan and CM met with Patient at bedside and addressed IMM with her (original has been given to Patient and a copy has been placed on the chart).
[2023-05-09] MEDS: amLODIPine Besylate 2.5 MG TABLET PO (15:05)
[2023-05-09 15:10] VITALS: BP 126/46; PULSE 73; RESP 20; TEMP 36.1; O2SAT 97
[2023-05-09 16:05] LABS: Glucose, Whole Blood 332 mg/dL (60-115)
[2023-05-09] MEDS: Enoxaparin Sodium 40 MG/0.4 ML SYRINGE SUBCUT (17:08)
== END 2023-05-09 17:49 | DRG 872 ==
LOC: HO.ED 12:01 → HO.EDOVER 18:04 → HO.S3 19:04 → HO.EDOVER 23:30 → HO.IMC 05-06 05:14
PROVIDERS: Internal Medicine; Physician Assistant; Physician Assistant Surgical; Radiology Diagnostic Radiology; Admitting Provider Student in an Organized Health Care Education/Training Program; Emergency Provider Student in an Organized Health Care Education/Training Program; PCP Internal Medicine; Visit Provider Internal Medicine
DX: A41.89 Other specified sepsis (principal); Z68.41 Body mass index [BMI] 40.0-44.9, adult; J96.10 Chronic respiratory failure, unspecified whether with hypoxia or hypercapnia; E87.21 Acute metabolic acidosis; R18.8 Other ascites; E11.43 Type 2 diabetes mellitus with diabetic autonomic (poly)neuropathy; E66.01 Morbid (severe) obesity due to excess calories; K31.84 Gastroparesis; E78.5 Hyperlipidemia, unspecified; I25.10 Atherosclerotic heart disease of native coronary artery without angina pectoris; E11.65 Type 2 diabetes mellitus with hyperglycemia; M54.9 Dorsalgia, unspecified; F41.9 Anxiety disorder, unspecified; F32.A Depression, unspecified; G89.29 Other chronic pain; N93.9 Abnormal uterine and vaginal bleeding, unspecified; I10 Essential (primary) hypertension; R00.0 Tachycardia, unspecified; R80.9 Proteinuria, unspecified; J70.5 Respiratory conditions due to smoke inhalation; K80.20 Calculus of gallbladder without cholecystitis without obstruction; E86.0 Dehydration; Z20.822 Contact with and (suspected) exposure to COVID-19; Z99.81 Dependence on supplemental oxygen; Z95.5 Presence of coronary angioplasty implant and graft; Z79.4 Long term (current) use of insulin; Z79.85 Long-term (current) use of injectable non-insulin antidiabetic drugs; Z79.899 Other long term (current) drug therapy
CPT/HCPCS: 36415; 71045; 71275; 74150; 74177; 76705; 78226; 80048; 80053; 80076; 80202; 81001; 82565; 82947; 83605; 85025; 85027; 85379; 85610; 85730; 87040; 87633; 87635; 93005; 99285; A9537; J1650; J2543; J3370; Q9967

== ENCOUNTER → 2023-05-05 09:49 | Outpatient (BNV) | payer MEDICARE, MEDICAID, SELFPAY | PROVIDERS: Admitting Provider Student in an Organized Health Care Education/Training Program; Emergency Provider Student in an Organized Health Care Education/Training Program; PCP Internal Medicine; Visit Provider Internal Medicine Cardiovascular Disease | DX: A41.9 Sepsis, unspecified organism (principal) | CPT/HCPCS: 93010 ==

== ENCOUNTER → 2023-05-05 17:30 | Outpatient (BNV) | payer MEDICARE, MEDICAID, SELFPAY | PROVIDERS: Admitting Provider Student in an Organized Health Care Education/Training Program; Emergency Provider Student in an Organized Health Care Education/Training Program; PCP Internal Medicine; Visit Provider Internal Medicine Gastroenterology | DX: R93.3 Abnormal findings on diagnostic imaging of other parts of digestive tract (principal); R11.2 Nausea with vomiting, unspecified | CPT/HCPCS: 99223 ==

== ENCOUNTER → 2023-05-05 17:30 | Outpatient (BNV) | payer MEDICARE, MEDICAID, SELFPAY | PROVIDERS: Admitting Provider Student in an Organized Health Care Education/Training Program; Emergency Provider Student in an Organized Health Care Education/Training Program; PCP Internal Medicine; Visit Provider Physician Assistant Surgical | DX: K81.0 Acute cholecystitis (principal) | CPT/HCPCS: 99223; 99232; 99499 ==

== ENCOUNTER → 2023-05-05 17:30 | Outpatient (BNV) | payer MEDICARE, MEDICAID, SELFPAY | PROVIDERS: Admitting Provider Student in an Organized Health Care Education/Training Program; Emergency Provider Student in an Organized Health Care Education/Training Program; PCP Internal Medicine; Visit Provider Internal Medicine | DX: R93.3 Abnormal findings on diagnostic imaging of other parts of digestive tract (principal); R11.2 Nausea with vomiting, unspecified; A41.9 Sepsis, unspecified organism; R80.9 Proteinuria, unspecified | CPT/HCPCS: 99223; 99231; 99232; 99239; 99499 ==

== ENCOUNTER 2025-03-03 19:27 | Emergency (ER) | payer MEDICARE, MEDICAID, SELFPAY ==
--- NOTE | ~2025-03-03 | XR_ITS ---
CLINICAL HISTORY: lower lumber spine pain 2 views lumbar spine Comparison: None Findings: The alignment of the lumbar spine is normal. There is a minimal L1 superior endplate compression fracture. Disc heights are preserved. There is multilevel facet osteoarthritis. There is arterial calcification. Impression: 1. Minimal age-indeterminate L1 superior endplate compression fracture. 2. Lumbar facet osteoarthritis. This document has been electronically signed by: Phuc Mills MD on 03/03/2025 23:58:22
[2025-03-03 19:34] VITALS: BP 103/47; BP 130/80; PULSE 90; RESP 18; O2SAT 100; O2SAT 99; BMI 45.9
--- NOTE | 2025-03-03 21:21 | ED.BACK ---
HPI - Back Pain/Injury General Chief Complaint: Back Pain/Injury Stated Complaint: FROM SNF, INCREASE PAIN PER EMS Time Seen by Provider: 03/03/25 21:19 Source: patient and EMS Mode of arrival: EMS Limitations: no limitations History of Present Illness ED Provider: HPI Narrative: Patient is morbidly obese with history of coronary artery disease diabetes hypotension arthritis fibromyalgia , oxygen-dependent bed-bound with chronic back problems on morphine 15 mg tablets every 4 hours as needed comes here for increased pain for last 3 weeks no recent fall patient does have history of compression fracture of lumbar spine Related Data Home Medications ?Medication ?Instructions ?Recorded ?Confirmed atorvastatin 20 mg tablet 1 tab PO BEDTIME 01/16/21 05/05/23 bisacodyl 10 mg rectal suppository 10 mg [place] DAILY PRN Constipation 01/16/21 05/05/23 duloxetine 20 mg capsule,delayed 1 cap PO DAILY 01/16/21 05/05/23 release duloxetine 60 mg capsule,delayed 1 cap PO DAILY 01/16/21 05/05/23 release furosemide 20 mg tablet 20 mg PO DAILY 01/16/21 05/05/23 insulin aspart U-100 100 unit/mL 5 unit subcut TIDAC 01/16/21 05/05/23 subcutaneous solution (Novolog U-100 Insulin aspart) insulin aspart U-100 100 unit/mL See Protocol subcut TIDWM 01/16/21 05/05/23 subcutaneous solution (Novolog U-100 Insulin aspart) magnesium oxide 400 mg PO BID 01/16/21 05/05/23 polyethylene glycol 3350 17 17 g PO DAILY PRN Constipation 01/16/21 05/05/23 gram/dose oral powder (Miralax) pregabalin 75 mg capsule 1 cap PO BID 01/16/21 05/05/23 trazodone 50 mg tablet 25 mg PO BID 01/16/21 05/05/23 lorazepam 0.5 mg tablet 0.5 mg PO BEDTIME 03/10/21 05/05/23 lorazepam 0.5 mg tablet (Ativan) 0.5 mg PO DAILY PRN Anxiety 03/10/21 05/05/23 acetaminophen 500 mg tablet 1,000 mg PO Q8H PRN Pain 05/05/23 05/05/23 albuterol sulfate 0.63 mg/3 mL 0.63 mg inhalation Q4H PRN 05/05/23 05/05/23 solution for nebulization Congestion aluminum-mag hydroxide-simethicone 30 ml PO Q6H PRN Heartburn 05/05/23 05/05/23 200 mg-200 mg-20 mg/5 mL oral susp (Yeimy-Lanta) dextrose 40 % oral gel (Glucose 10 g PO Q10M PRN Hypoglycemia 05/05/23 05/05/23 Gel) dulaglutide 0.75 mg/0.5 mL 0.75 mg subcut FR 05/05/23 05/05/23 subcutaneous pen injector (Trulicity) glucagon HCl 1 mg solution for 1 mg subcut Q20M PRN Hypoglycemia 05/05/23 05/05/23 injection (Glucagon (HCl) Emergency Kit) guaifenesin 400 mg tablet 400 mg PO Q4H PRN Cough 05/05/23 05/05/23 hydrocortisone 1 % topical cream 1 appl topical TID PRN Itching 05/05/23 05/05/23 ketoconazole 2 % shampoo 1 appl topical FR 05/05/23 05/05/23 medroxyprogesterone 10 mg tablet 20 mg PO BID 05/05/23 05/05/23 menthol 5 % topical patch (Icy Hot 1 patch topical BID 05/05/23 05/05/23 (menthol)) methyl salicylate 15 %-menthol 10 1 appl topical TID PRN Pain 05/05/23 05/05/23 % topical cream miconazole nitrate 2 % topical 1 appl topical BID 05/05/23 05/05/23 powder morphine 15 mg immediate release 15 mg PO Q4H PRN pain 05/05/23 05/05/23 tablet ondansetron HCl 4 mg tablet 4 mg PO Q8H PRN Nausea 05/05/23 05/05/23 sumatriptan succinate 25 mg tablet 25 mg PO DAILY MRX1 PRN Migraine 05/05/23 05/05/23 Headache trazodone 50 mg tablet 50 mg PO BEDTIME 05/05/23 05/05/23 Previous Rx's ?Medication ?Instructions ?Recorded amlodipine 2.5 mg tablet 2.5 mg PO DAILY #30 tabs 05/09/23 carvedilol 12.5 mg tablet 25 mg PO BID #60 tabs 05/09/23 insulin detemir U-100 100 unit/mL 50 unit (0.5 mL) subcut BID #1 mL 05/09/23 subcutaneous solution (Levemir U-100 Insulin) Allergies Allergy/AdvReac Type Severity Reaction Status Date / Time No Known Allergies Allergy Verified 03/03/25 19:35 [No Known Allergies*] Review of Systems Review of Systems: Yes all other systems are reviewed and are negative [facility] Past Medical History Medical History COVID-19 vaccine administered Thickened endometrium Foul smelling vaginal discharge Diabetes Anxiety Depression CAD (coronary artery disease) Low back pain HTN (hypertension) Osteoarthritis Personality disorder Venous (peripheral) insufficiency Chronic respiratory disease COVID-19 HLD (hyperlipidemia) Surgical History Hx of heart artery stent Social History Social History Housing: [facility] Are you a primary assistant child care teacher to a significant other at home: No Do you presently have visiting nurse or other home services: Yes (resides at [facility]) Alcohol intake: never Patient Tobacco Use Status: Tobacco use Unknown Advance Directives Date on File: 01/16/21 service: No Current occupational status: disabled Physical Exam Vital Signs: Vital Signs: Last Vital Signs Temp 98.1 F 03/04/25 01:20 Pulse 97 03/04/25 01:20 Resp 18 03/04/25 01:20 BP 107/54 L 03/04/25 01:20 Pulse Ox 99 03/04/25 01:20 O2 Del Method Nasal Cannula 03/04/25 01:20 O2 Flow Rate 2 03/04/25 01:20 Oxygen Flow Rate 2 03/03/25 19:34 BMI result Body Mass Index 45.9 Appearance: Alert. Oriented X3. No acute distress. Eyes: No pallor or icterus ENT: Pharynx normal. Oral Mucosa moist Neck: Normal inspection. Neck supple. CVS: Normal heart rate and rhythm. Pulses normal. Respiratory: No respiratory distress. Equal air entry bilateral, no wheezing/rales/rhonchi Abdomen: Soft and nontender. Bowel sounds are present, no mass palpable, no CVA tenderness Skin: Skin warm and dry. Normal skin color. Normal skin turgor. Extremities: 2+lower extremity edema. No calf tenderness limited lower extremity movement Neuro: Oriented X 3. No motor deficit. No sensory deficit.No cerebellar signs , cranial nerves II-XII intact Medications Administered Discontinued Medications Generic Name Dose Route Start Last Admin Trade Name Rodriguezq PRN Reason Stop Dose Admin Hydromorphone HCl 2 mg 03/03/25 21:44 03/03/25 21:56 Hydromorphone Hcl 2 Mg Tablet PO 03/03/25 21:45 2 mg ONCE ONE Administration Medical Decision Making Medical Decision Making [facility] Narrative: Patient with Chronic back pain does not ambulate on pain medication x-ray of lumbar spine without any significant compression fracture will discharge patient back to [facility] Differential Diagnosis Differential Diagnoses: The differential diagnosis associated with the presentation includes Compression fracture/radiculopathy/opiate use Independent Interpretation I performed an independent interpretation of an: Plain X-Ray Radiology Impression Discussion of test interpretation with radiology: I have reviewed the radiologist's reading. Discharge Plan Discharge Clinical Impression: Chronic back pain Patient Disposition: er [facility] Transfer Details: X-ray of lumbar same negative for acute fracture, continue her pain medication as prescribed by PCP Instructions: Chronic Back Pain (DC) Additional Instructions: Continue pain medication as prescribed by your PCP and follow up as needed Prescriptions: No Action atorvastatin 20 mg tablet 1 tab PO BEDTIME trazodone 50 mg Tablet 25 mg PO BID bisacodyl 10 mg Suppository 10 mg [place] DAILY PRN (Reason: Constipation) furosemide 20 mg Tablet 20 mg PO DAILY polyethylene glycol 3350 [Miralax] 17 gram/dose Powder 17 g PO DAILY PRN (Reason: Constipation) duloxetine 20 mg capsule,delayed release(DR/EC) 1 cap PO DAILY duloxetine 60 mg capsule,delayed release(DR/EC) 1 cap PO DAILY pregabalin 75 mg capsule 1 cap PO BID magnesium oxide 400 mg magnesium Tablet 400 mg PO BID insulin aspart U-100 [Novolog U-100 Insulin aspart] 100 unit/mL solution See Protocol subcut TIDWM Protocol: Insulin Correction Scale Less than or equal to 110 ---- Give (units): 0 111 to 150 Give (units): 0 151 to 200 Give (units): 0 201 to 250 Give (units): 2 251 to 300 Give (units): 4 301 to 350 Give (units): 6 Greater than 350 Give (units): 8 Call MD if Blood Glucose > : 400 insulin aspart U-100 [Novolog U-100 Insulin aspart] 100 unit/mL solution 5 unit subcut TIDAC lorazepam 0.5 mg Tablet 0.5 mg PO BEDTIME lorazepam [Ativan] 0.5 mg Tablet 0.5 mg PO DAILY PRN (Reason: Anxiety) albuterol sulfate 0.63 mg/3 mL solution for nebulization 0.63 mg inhalation Q4H PRN (Reason: Congestion) ketoconazole 2 % Shampoo 1 appl TOPICAL FR Rx Instructions: apply to annamaria, leave on for 5 - 10 minutes then rinse. Use as facial wash as well. sumatriptan succinate 25 mg tablet 25 mg PO DAILY MRX1 PRN (Reason: Migraine Headache) dextrose [Glucose Gel] 40 % Gel 10 g PO Q10M PRN (Reason: Hypoglycemia) Rx Instructions: if FSBS < 50;until symptoms of low blood sugar are controlled miconazole nitrate 2 % Powder 1 appl TOPICAL BID Rx Instructions: apply to neck folds hydrocortisone 1 % Cream 1 appl TOPICAL TID PRN (Reason: Itching) Rx Instructions: right elbow/left chest alum-mag hydroxide-simeth [Yeimy-Lanta] 200-200-20 mg/5 mL Suspension 30 ml PO Q6H PRN (Reason: Heartburn) Rx Instructions: administer between meals and at bedtime guaifenesin 400 mg Tablet 400 mg PO Q4H PRN (Reason: Cough) Icy Hot (menthol) 5 % Adhesive Patch,Medicated 1 patch TOPICAL BID Rx Instructions: to neck laterally right side methyl salicylate-menthol 15-10 % Cream 1 appl TOPICAL TID PRN (Reason: Pain) Rx Instructions: for back pain/right leg pain/right shoulder glucagon HCl [Glucagon (HCl) Emergency Kit] 1 mg Recon Soln 1 mg SUBCUT Q20M PRN (Reason: Hypoglycemia) Rx Instructions: if FSBS <60; until target blood sugar attained medroxyprogesterone 10 mg Tablet 20 mg PO BID trazodone 50 mg tablet 50 mg PO BEDTIME ondansetron HCl 4 mg tablet 4 mg PO Q8H PRN (Reason: Nausea) acetaminophen 500 mg Tablet 1,000 mg PO Q8H PRN (Reason: Pain) morphine 15 mg tablet 15 mg PO Q4H PRN (Reason: pain) Trulicity 0.75 mg/0.5 mL Pen Injector 0.75 mg SUBCUT FR carvedilol 12.5 mg Tablet 25 mg PO BID Qty: 60 0RF Protocol: Hold for SBP/HR < HOLD for SBP < : 90 HOLD for HR < : 60 amlodipine 2.5 mg Tablet 2.5 mg PO DAILY Qty: 30 0RF Protocol: Hold for SBP< HOLD for SBP < : 90 Levemir U-100 Insulin 100 unit/mL solution 50 unit subcut BID Qty: 1 0RF Interventions: ED Discharge Assessment Last Done: 03/04/25 01:20 Discharge Date/Time: 03/04/25 01:30 Print Language: Guinean
[2025-03-03] MEDS: HYDROmorphone HCl 2 MG TABLET PO (21:56)
[2025-03-04 01:19] VITALS: BP 107/54; PULSE 97; RESP 18; TEMP 36.7; O2SAT 99
[2025-03-04 01:20] VITALS: BP 107/54; PULSE 97; RESP 18; TEMP 36.7; O2SAT 99
== END 2025-03-04 01:30 | disposition skilled nursing facility (03) ==
PROVIDERS: Emergency Provider Internal Medicine
DX: M54.9 Dorsalgia, unspecified (principal); G89.29 Other chronic pain; E11.9 Type 2 diabetes mellitus without complications; I10 Essential (primary) hypertension; E78.5 Hyperlipidemia, unspecified; I25.10 Atherosclerotic heart disease of native coronary artery without angina pectoris; Z79.899 Other long term (current) drug therapy
CPT/HCPCS: 72100; 99283; 99284

== ENCOUNTER → 2025-03-03 21:46 | Outpatient (BNV) | payer MEDICARE, MEDICAID, SELFPAY | PROVIDERS: Emergency Provider Internal Medicine; Visit Provider Radiology Diagnostic Radiology | DX: M47.816 Spondylosis without myelopathy or radiculopathy, lumbar region (principal) | CPT/HCPCS: 72100 ==